=== PATIENT | female | born 1970 | race Caucasian/White ===

== ENCOUNTER 2018-10-20 14:33 | Emergency (ER) | payer BC, SELFPAY ==
[2018-10-20 14:38] VITALS: BP 124/78; PULSE 79; RESP 17; TEMP 36.9; O2SAT 96; BMI 25.0
--- NOTE | 2018-10-20 16:46 | DI.CT.S_ITS ---
PROCEDURE: CT HEAD/BRAIN WO CON INDICATIONS: Ground level fall hitting back of head possible loc TECHNIQUE: Noncontrast 4.5 mm thick angled axial sections acquired from the foramen magnum to the vertex, with coronal and sagittal reformats. For radiation dose reduction, the following was used: automated exposure control, adjustment of mA and/or kV according to patient size. COMPARISON: [facility], , CT HEAD W/O CONTRAST, 04/16/2003, 8:14. FINDINGS: Image quality: Excellent. CSF spaces: Basal cisterns are patent. No extra-axial fluid collections. Ventricles are normal in size and shape. Brain: No midline shift. No intracranial masses or hemorrhage. De La Cruz-white matter interface is normal. Skull and face: Calvarium and visualized facial bones are intact, without suspicious lesions. Sinuses: Visualized sinuses and mastoids are clear. IMPRESSION: No CT evidence of acute trauma. Dictated by: Zahra Cabrales M.D. on 10/20/2018 at 17:03 Approved by: Zahra Cabrales M.D. on 10/20/2018 at 17:05
[2018-10-20] MEDS: IBUPROFEN 400 MG TABLET 800 MG PO (17:15)
[2018-10-20] MEDS: ONDANSETRON 4 MG ODT SL (17:18)
--- NOTE | 2018-10-20 17:43 | ED_ITS ---
HPI - Fall <SUE De La Torre - Last Filed: 10/20/18 21:59> General Chief Complaint: Fall Stated Complaint: fall out of shower, hit her head Time Seen by Provider: 10/20/18 16:34 Source: patient Mode of arrival: ambulatory Limitations: no limitations History of Present Illness HPI Narrative: 48-year-old female with history of type 2 diabetes and is a nonsmoker here for complaint of fall while she was stepping out of the shower earlier today causing hit her back of her head. She states there may have been a loss of consciousness however she is not sure. She has some nausea however she has not vomiting. Pain is limited to the back of the head. She denies any neck pain. No other injuries. She is ambulatory into the emergency room. She denies any stressors relievers of her symptoms. MD complaint: fall Related Data Home Medications Medication Instructions Recorded Confirmed estradiol 10/20/18 gabapentin 10/20/18 levothyroxine 50 mcg PO DAILY 10/20/18 10/20/18 lovastatin 20 mg PO DAILY 10/20/18 10/20/18 metformin 750 mg PO BID 10/20/18 10/20/18 propranolol 40 mg PO BID 10/20/18 10/20/18 venlafaxine 50 mg PO DAILY 10/20/18 10/20/18 Allergies Allergy/AdvReac Type Severity Reaction Status Date / Time Sulfa (Sulfonamide Allergy Intermediate HIVES Unverified 11/03/17 11:54 Antibiotics) [SULFA (SULFONAMIDE ANTIBIOTICS)] aspirin [ASPIRIN] Allergy Unknown Unverified 11/03/17 11:54 codeine [CODEINE] Allergy Unknown Unverified 11/03/17 11:54 hydromorphone [From DILAUDID] Allergy Unknown VOMITING Unverified 11/03/17 11:54 AND DIARRHEA Review of Systems <SUE De La Torre - Last Filed: 10/20/18 21:59> Constitutional Denies chills, Denies fever(s), Denies lethargy and Denies weakness Eyes Denies change in vision, Denies eye discharge, Denies irritation and Denies loss of vision ENT Ears, Nose, Mouth, and Throat: Denies change in voice, Denies neck pain, Denies sore throat and Denies throat swelling Cardiovascular Denies chest pain, Denies irregular heart rhythm, Denies lightheadedness, Denies palpitations and Denies orthopnea Respiratory Denies wheezing Gastrointestinal Gastrointestinal: Denies abdominal pain, Denies change in bowel habits, Denies diarrhea, Denies nausea and Denies vomiting Musculoskeletal Denies neck pain Integumentary/Breasts Denies pruritus, Denies erythema, Denies rash and Denies wounds Neurologic Denies confusion, Denies loss of vision and Denies weakness Comments: Ground level fall hitting back of head Psychiatric Denies anxiety, Denies confusion, Denies depression, Denies homicidal ideation and Denies suicidal ideation Endocrine Denies palpitations Allergic/Immunologic Denies urticaria, Denies throat swelling and Denies wheezing Exam <SUE De La Torre - Last Filed: 10/20/18 21:59> Initial Vital Signs Initial Vital Signs: Vital Signs Temperature 98.5 F 10/20/18 14:38 Pulse Rate 79 10/20/18 14:38 Respiratory Rate 17 10/20/18 14:38 Blood Pressure 124/78 10/20/18 14:38 Pulse Oximetry 96 10/20/18 14:38 Const General: cooperative and well developed Nutritional Appearance: well nourished Orientation: alert, awake, oriented x3 and not confused [facility] Head: normal to inspection, normocephalic, No Bahena's sign, No hematoma, No laceration, No palpable skull fracture, No raccoon eyes, No scalp lesion and scalp tenderness Mouth: oral mucosae normal and moist mucous membranes Throat: posterior oropharynx normal Eyes Conjunctivae: conjunctivae normal Sclera: sclerae normal Pupils: PERRL EOM: EOM intact bilaterally Resp Effort & Inspection: normal respiratory effort, able to speak in complete sentences, no respiratory distress and no use of accessory muscles Auscultation: clear to auscultation bilaterally, no rales, no rhonchi and no w heezes Cardio Rate: regular rate Rhythm: regular rhythm Heart Sounds: no click, no gallops, no murmurs and no rubs Pulses: normal peripheral pulses Skin General: no rashes or lesions noted, No jaundice and No petechiae Neuro General: alert, oriented x3, gait normal and no focal motor deficits Speech: speech normal <Noemi Miller DO - Last Filed: 10/22/18 07:14> Initial Vital Signs Initial Vital Signs: Vital Signs Temperature 98.5 F 10/20/18 14:38 Pulse Rate 79 10/20/18 14:38 Respiratory Rate 17 10/20/18 14:38 Blood Pressure 124/78 10/20/18 14:38 Pulse Oximetry 96 10/20/18 14:38 PFSH <SUE De La Torre - Last Filed: 10/20/18 21:59> Social History Smoking Status: Former smoker Social History Smoking Status: Former smoker Course <SUE De La Torre - Last Filed: 10/20/18 21:59> Orders Ordered: Discontinued Medications Ibuprofen (Advil) 800 mg PO NOW ONE Stop: 10/20/18 17:15 Last Admin: 10/20/18 17:15 Dose: 800 mg Ondansetron HCl (Zofran Odt) 4 mg SL NOW ONE Stop: 10/20/18 17:18 Last Admin: 10/20/18 17:18 Dose: 4 mg Vital Signs - 8 hr 10/20/18 14:38 Temperature 98.5 F Pulse Rate 79 Respiratory Rate 17 Blood Pressure 124/78 Pulse Oximetry 96 <Noemi Miller DO - Last Filed: 10/22/18 07:14> Orders Ordered: Discontinued Medications Ibuprofen (Advil) 800 mg PO NOW ONE Stop: 10/20/18 17:15 Last Admin: 10/20/18 17:15 Dose: 800 mg Ondansetron HCl (Zofran Odt) 4 mg SL NOW ONE Stop: 10/20/18 17:18 Last Admin: 10/20/18 17:18 Dose: 4 mg Vital Signs - 8 hr 10/20/18 14:38 Temperature 98.5 F Pulse Rate 79 Respiratory Rate 17 Blood Pressure 124/78 Pulse Oximetry 96 MDM - Fall <SUE De La Torre - Last Filed: 10/20/18 21:59> MDM Narrative Medical decision making narrative: On exam head with no signs of skull fracture. No Bahena signs. No raccoon eyes. CT scan of the head was obtained was negative for any acute findings. Signs and symptoms presents as a minor head injuriy. [id number] Tylenol as needed for any discomfort. Plenty of fluids and rest. Head injury instructions are provided warning signs return to the emergency room. For any worsening symptoms return to the emergency room. Follow up with primary care provider. Discharge Plan Departure Patient Disposition: Home Clinical Impression: Minor closed head injury Discharge Date/Time: 10/20/18 17:54 Interventions: ED Discharge Assessment Last Done: 10/20/18 17:53 Instructions: DI for Closed Head Injury Activity Restrictions/Additional Instructions: CT scan of the head was obtained and was negative for any acute findings. Signs and symptoms presents as minor head injury. Use [id number] Tylenol as needed for any discomfort. Follow up with her primary care provider next week for re-evaluation. Plenty of fluids and rest. Head injury instructions are provided with warning signs return emergency room. If any worsening symptoms return to the emergency room. Prescriptions: No Action estradiol 0.01 % (0.1 mg/gram) cream RF: 0 gabapentin 600 mg tablet RF: 0 propranolol 40 mg tablet 40 mg PO BID RF: 0 levothyroxine 50 mcg tablet 50 mcg PO DAILY RF: 0 venlafaxine 50 mg tablet 50 mg PO DAILY RF: 0 lovastatin 20 mg tablet 20 mg PO DAILY RF: 0 metformin 750 mg tablet extended release 24 hr 750 mg PO BID RF: 0 Referrals: [facility] [Provider Group] Stand Alone Forms: Work Release Note <Noemi Miller DO - Last Filed: 10/22/18 07:14> Cosign ED Attending Hardik Attestation: I was immediately available in the department for consultation. Documentation has been reviewed. I agree with assessment and plan.
== END 2018-10-20 17:54 | disposition home or self-care (01) ==
PROVIDERS: Emergency Provider Nurse Practitioner Family
DX: S09.8XXA Other specified injuries of head, initial encounter (principal); W18.39XA Other fall on same level, initial encounter
CPT/HCPCS: 70450; 99282; 99284

== ENCOUNTER 2019-04-27 02:29 | Emergency (ER) | payer BC, SELFPAY ==
[2019-04-27 02:36] VITALS: BP 169/90; PULSE 64; RESP 18; TEMP 36.6; O2SAT 98
--- NOTE | 2019-04-27 02:57 | ED.DIZZY ---
HPI - Dizziness General Chief Complaint: Dizziness Stated Complaint: chest tightness, dizziness Time Seen by Provider: 04/27/19 02:34 Source: patient Mode of arrival: Ambulatory Limitations: no limitations History of Present Illness HPI Narrative: The patient developed chest discomfort with dizziness or tonight. She was feeling anxious, she was feeling like a panic attack. Symptoms resolved on the way to the hospital, she feels much better. She takes Effexor for anxiety/depression. She has been out of medications for 3 days. Medications will be available tomorrow. Her current symptoms started today. She has no history of cardiac problems. She has a history of previous discomfort associated with panic attacks. She denies recent illness. She has no URI symptoms, cough or congestion. She does have diabetes. He does not have hypertension or hyperlipidemia. Related Data Home Medications Medication Instructions Recorded Confirmed estradiol 10/20/18 gabapentin 10/20/18 levothyroxine 50 mcg PO DAILY 10/20/18 10/20/18 lovastatin 20 mg PO DAILY 10/20/18 10/20/18 metformin 750 mg PO BID 10/20/18 10/20/18 propranolol 40 mg PO BID 10/20/18 10/20/18 venlafaxine 50 mg PO DAILY 10/20/18 10/20/18 Allergies Allergy/AdvReac Type Severity Reaction Status Date / Time Sulfa (Sulfonamide Allergy Intermediate HIVES Unverified 11/03/17 11:54 Antibiotics) [SULFA (SULFONAMIDE ANTIBIOTICS)] aspirin [ASPIRIN] Allergy Unknown Unverified 11/03/17 11:54 codeine [CODEINE] Allergy Unknown Unverified 11/03/17 11:54 hydromorphone [From DILAUDID] Allergy Unknown VOMITING Unverified 11/03/17 11:54 AND DIARRHEA Review of Systems Review of Systems ROS Unobtainable: All systems reviewed & are unremarkable except as noted in HPI and below Constitutional Constitutional: Denies chills, Denies fever(s), Denies headache(s), Denies lethargy and Denies weakness Comments: Anxiety. Eyes Eyes: Denies change in vision, Denies eye discharge, Denies irritation and Denies loss of vision ENT Ears, Nose, Mouth, and Throat: Denies vertigo, Denies dizziness, Denies headache(s), Denies neck pain, Denies sinus pressure and Denies sore throat Cardiovascular Cardiovascular: Reports chest pain, Denies irregular heart rhythm, Denies lightheadedness, Denies palpitations, Reports dyspnea, Denies dyspnea on exertion and Denies orthopnea Respiratory Respiratory: Denies cough, Reports dyspnea, Denies dyspnea on exertion and Denies wheezing Gastrointestinal Gastrointestinal: Denies abdominal pain, Denies change in bowel habits, Denies diarrhea, Denies nausea and Denies vomiting Musculoskeletal Musculoskeletal: Denies back pain and Denies neck pain Integumentary/Breasts Skin/Breast: Denies pruritus, Denies erythema, Denies rash and Denies wounds Neurologic Neurologic: Denies confusion, Denies vertigo, Denies dizziness, Denies headache(s), Denies loss of vision and Denies weakness Psychiatric Psychiatric: Reports anxiety, Denies confusion and Denies depression Endocrine Endocrine: Denies palpitations Allergic/Immunologic Allergic/Immunologic: Denies wheezing [facility] Medical History Anxiety (Acute) Depression (Acute) Diabetes (Acute) Hypothyroidism (Acute) Neurogenic pain (Acute) Social History Smoking Status: Former smoker Social History Smoking Status: Former smoker Exam Initial Vital Signs Initial Vital Signs: Vital Signs Temperature 98 F 04/27/19 02:36 Pulse Rate 64 04/27/19 02:36 Respiratory Rate 18 04/27/19 02:36 Blood Pressure 169/90 H 04/27/19 02:36 Pulse Oximetry 98 04/27/19 02:36 Const General: cooperative and well developed Nutritional Appearance: well nourished Orientation: alert, awake, oriented x3 and not confused [facility] Head: normocephalic and atraumatic Face and sinus: sinuses nontender Mouth: oral mucosae normal and moist mucous membranes Throat: tonsils normal and uvula midline Eyes General: appearance normal, both eyes and all related structures Eyelids: eyelids normal Conjunctivae: conjunctivae normal Sclera: sclerae normal Pupils: PERRL EOM: EOM intact bilaterally Neck Neck: normal visual inspection, trachea midline, No lymphadenopathy, No midline deformity and No JVD Lymphatic: No lymphedema Chest Chest: normal inspection of the chest Resp Effort & Inspection: normal respiratory effort and able to speak in complete sentences Auscultation: clear to auscultation bilaterally, no rales, no rhonchi and no wheezes Cardio Rate: regular rate Rhythm: regular rhythm Heart Sounds: S1 normal, S2 normal, no click, no gallops, no murmurs and no rubs Pulses: normal peripheral pulses GI Inspection: non-distended Palpation: soft, no hepatosplenomegaly, No guarding and No tender Auscultation: normal bowel sounds Back/Spine/Pelvis Back: No CVA tenderness Skin General: no rashes or lesions noted, No jaundice and No petechiae Neuro General: alert, oriented x3, gait normal and no focal motor deficits Speech: speech normal Extrem General: full ROM, no clubbing, cyanosis or edema and no pedal edema Psych Appearance: well kempt Mental Status: mental status grossly normal Speech and Movement: speech and movement normal Mood: anxious mood Attitude: cooperative Thought Content: normal Judgment: judgment good Course Course Course Narrative: The patient is earlier symptoms of chest discomfort, mild dyspnea and anxiety had improved without intervention. She still feels anxious, but not bad. Her Effexor will be available later today. She was given a dose of Effexor prior to departure from the ER. Orders Ordered: Discontinued Medications Venlafaxine HCl (Effexor) 37.5 mg PO NOW ONE Stop: 04/27/19 02:54 Last Admin: 04/27/19 03:10 Dose: Not Given Documented by: MERY Venlafaxine HCl (Effexor Xr) 75 mg PO DAILY ONE Stop: 04/27/19 03:16 Last Admin: 04/27/19 03:16 Dose: 75 mg Documented by: MERY Vital Signs Vital signs: Vital Signs - 8 hr 04/27/19 02:36 04/27/19 03:25 Temperature 98 F 99 F Pulse Rate 64 72 Respiratory Rate 18 19 Blood Pressure 169/90 H 158/84 H Pulse Oximetry 98 MDM - Dizziness Lab Data Labs: Point of Care Testing Glucose POC 111 ECG Data Attestation: I personally reviewed and interpreted this ECG as follows: (Normal sinus rhythm rate 60 beats per minute. Normal intervals. No ectopy. No acute ST T wave changes. Normal study.) Discharge Plan Departure Patient Disposition: Home Clinical Impression: Anxiety Discharge Date/Time: 04/27/19 03:50 Instructions: DI for Anxiety -- Adult Activity Restrictions/Additional Instructions: Take venlafaxine daily as prescribed. Follow-up with her doctor if you of ongoing issues with her medication, return here as needed Prescriptions: No Action estradiol 0.01 % (0.1 mg/gram) cream RF: 0 gabapentin 600 mg tablet RF: 0 propranolol 40 mg tablet 40 mg PO BID RF: 0 levothyroxine 50 mcg tablet 50 mcg PO DAILY RF: 0 venlafaxine 50 mg tablet 50 mg PO DAILY RF: 0 lovastatin 20 mg tablet 20 mg PO DAILY RF: 0 metformin 750 mg tablet extended release 24 hr 750 mg PO BID RF: 0
[2019-04-27] MEDS: VENLAFAXINE ER 75 MG CAP PO (03:16)
[2019-04-27 03:25] VITALS: BP 158/84; PULSE 72; RESP 19; TEMP 37.2
== END 2019-04-27 03:50 | disposition home or self-care (01) ==
PROVIDERS: Emergency Provider Emergency Medicine
DX: F41.9 Anxiety disorder, unspecified (principal)
CPT/HCPCS: 82962; 93005; 99282; 99283

== ENCOUNTER 2019-10-10 21:47 | Emergency (ER) | payer BC, SELFPAY ==
--- NOTE | 2019-10-10 21:51 | ED_ITS ---
HPI - SOB/Dyspnea General Chief Complaint: Upper Respiratory Symptoms Stated Complaint: cough, fever Time Seen by Provider: 10/10/19 22:02 Source: patient Mode of arrival: Ambulatory Limitations: no limitations History of Present Illness HPI Narrative: This is a 49-year-old female comes to the emergency department with complaint of dry cough has been going on for 2+ weeks. Patient states she know she had any fevers. She is going through menopause and sometimes has hot flashes and has had those intermittently. She has had some mild nasal congestion. She states cough has been nonproductive. She has felt a little short of breath recently. She has not had any chest pain or pressure. She denies any nausea or vomiting, no diarrhea constipation, no urinary symptoms. She has not any swelling in her lower extremities. She is on metformin, she does have elevated triglycerides but states she does not tolerate statins so she is on red yeast rice, and she takes thyroid medication in depression medications. She states she has had thyroid surgery and a cyst on her hand excised. She has multiple allergies. Patient states her main concern is that she works [employer] and she is transferring to a new area with 2 additional individuals who have older family members with medical issues and she is concerned about transmitting infection to them. Related Data Home Medications Medication Instructions Recorded Confirmed estradiol 10/20/18 gabapentin 10/20/18 levothyroxine 50 mcg PO DAILY 10/20/18 10/20/18 lovastatin 20 mg PO DAILY 10/20/18 10/20/18 metformin 750 mg PO BID 10/20/18 10/20/18 propranolol 40 mg PO BID 10/20/18 10/20/18 venlafaxine 50 mg PO DAILY 10/20/18 10/20/18 Previous Rx's Medication Instructions Recorded azithromycin See Rx Instructions .ROUTE 10/10/19 .COMPLEX #4 tab Allergies Allergy/AdvReac Type Severity Reaction Status Date / Time Sulfa (Sulfonamide Allergy Intermediate HIVES Unverified 11/03/17 11:54 Antibiotics) [SULFA (SULFONAMIDE ANTIBIOTICS)] aspirin [ASPIRIN] Allergy Unknown Unverified 11/03/17 11:54 codeine [CODEINE] Allergy Unknown Unverified 11/03/17 11:54 hydromorphone [From DILAUDID] Allergy Unknown VOMITING Unverified 11/03/17 11:54 AND DIARRHEA Review of Systems Review of Systems ROS Unobtainable: All systems reviewed & are unremarkable except as noted in HPI and below Patient History Medical History Anxiety (Acute) Depression (Acute) Diabetes (Acute) Hypothyroidism (Acute) Neurogenic pain (Acute) Social History Smoking Status: Former smoker Smoking Status: Former smoker alcohol intake frequency: holidays/special occasions only Substance Use Type: does not use Exam Narrative Exam Narrative: GEN: well nourished, well appearing female, alert and oriented x 3, patient appears to be in mild distress. HEENT: Atraumatic, pupils are equal round reactive to light, extraocular movements are intact, nares are clear, patient has some mild erythema around the nares consistent with wiping her nose frequently, TMs are clear with no fluid, there is no conjunctival pallor. Throat is clear without any exudates, erythema, tonsillar enlargement or uvular deviation HEART: Regular rate and rhythm without murmur, clicks, rubs. LUNGS:Lungs clear to auscultation, no wheezes, rales, crackles, chest moves symmetrically, no tachypnea accessory muscle use. Patient has dry cough all in the room. She is able to speak in full sentences. ABD:bowel sounds normal, soft, non-tender, no guarding, rebound, rigidity, no masses noted, no hepatosplenomegaly MSCL: full range of motion, normal gait NEURO:CN 2-12 intact SKIN: Rash, erythema or other skin changes. Initial Vital Signs Initial Vital Signs: Vital Signs Temperature 98.3 F 10/10/19 22:05 Pulse Rate 90 10/10/19 22:05 Respiratory Rate 18 10/10/19 22:05 Blood Pressure 150/70 H 10/10/19 22:05 Pulse Oximetry 99 10/10/19 22:05 Course Orders Ordered: ED Orders 10/10/19 22:03 XR chest 2V Stat Discontinued Medications Azithromycin (Zithromax) 500 mg PO NOW ONE Stop: 10/10/19 22:55 Last Admin: 10/10/19 23:01 Dose: 500 mg Documented by: MMCFARVivienne Vital Signs Vital signs: Vital Signs - 8 hr 10/10/19 22:05 10/10/19 23:15 Temperature 98.3 F 97.1 F L Pulse Rate 90 84 Respiratory Rate 18 16 Blood Pressure 150/70 H Blood Pressure [Left Arm] 134/67 Pulse Oximetry 99 97 MDM - SOB/Dyspnea Imaging Data Chest x-ray: Attestation: I personally reviewed and interpreted this imaging study as follows: My Impression: Possible infiltrate on lateral x-ray when compared to priors. Not appreciate a PA. MDM Narrative Medical decision making narrative: Patient comes in with dry cough and possible fevers for the past 2+ weeks. Her main concern is being able to work safely around her coworkers. Chest x-ray was obtained and shows possible infiltrate on the lateral view. Not appreciated on the PA. Discussed with patient plan for short course of antibiotics we did discuss that this could also be viral in nature. Patient and I discussed that she should continue with self isolation. Discharge Plan Departure Patient Disposition: Home Clinical Impression: Pneumonia Discharge Date/Time: 10/10/19 23:18 Instructions: DI for Pneumonia -- Adult Activity Restrictions/Additional Instructions: Follow-up in the next week for recheck if your symptoms are not improving. We cannot rule out any viral cause of your infection today. I do recommend self isolation for the next 7-10 days. Continue home medications as prescribed. Take antibiotics as prescribed. Prescription was sent to [facility]. Return to the ER for persistent fevers, increasing shortness of breath, chest pain, lightheadedness or passing out, swelling in your extremities, persistent vomiting or other new or concerning symptoms. Prescriptions: New azithromycin 250 mg tablet See Rx Instructions .ROUTE .COMPLEX Qty: 4 RF: 0 No Action estradiol 0.01 % (0.1 mg/gram) cream RF: 0 gabapentin 600 mg tablet RF: 0 propranolol 40 mg tablet 40 mg PO BID RF: 0 levothyroxine 50 mcg tablet 50 mcg PO DAILY RF: 0 venlafaxine 50 mg tablet 50 mg PO DAILY RF: 0 lovastatin 20 mg tablet 20 mg PO DAILY RF: 0 metformin 750 mg tablet extended release 24 hr 750 mg PO BID RF: 0 Stand Alone Forms: Work Release Note, Work/School Release
--- NOTE | 2019-10-10 22:03 | DI.RAD.S_ITS ---
PROCEDURE: XR CHEST 2V INDICATIONS: cough, fever TECHNIQUE: 2 views of the chest were acquired. COMPARISON: [facility], , CHEST 2 VIEW, 02/02/2015, 11:59. FINDINGS: Surgical changes and devices: None. Lungs and pleura: Increased bronchovascular markings in bilateral hilar region are seen. No definite focal infiltrate. No pleural effusions or pneumothorax. Mediastinum: Mediastinal contours are normal. Heart size is normal. Bones and chest wall: No suspicious bony abnormalities. Soft tissues appear unremarkable. IMPRESSION: Suggestion of mild reactive airway disease. No definite focal infiltrate. Dictated by: Adebayo Irizarry M.D. on 10/11/2019 at 8:28 Approved by: Adebayo Irizarry M.D. on 10/11/2019 at 8:30
[2019-10-10 22:05] VITALS: BP 150/70; PULSE 90; RESP 18; TEMP 36.8; O2SAT 99
--- NOTE | 2019-10-10 22:22 | PC.NURSE ---
PT states dry cough for past 2 weeks without fever and denies sore throat, was seen at [facility] and given medication she can't recall name of but stopped taking stating it gave her hives. PT works at 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 Pt appears in no distress, speaking in full sentences without work of breathing and Lung sounds clear bilaterally.
[2019-10-10] MEDS: AZITHROMYCIN 250 MG TABLET 500 MG PO (23:01)
[2019-10-10 23:15] VITALS: BP 134/67; PULSE 84; RESP 16; TEMP 36.2; O2SAT 97
--- NOTE | 2019-10-10 23:15 | PC.NURSE ---
gave patient 3 sheets of resource papers, [facility] resources business card, and told to stop at the front office administrator for finance resources.
== END 2019-10-10 23:18 | disposition home or self-care (01) ==
PROVIDERS: Emergency Provider Emergency Medicine
DX: J18.9 Pneumonia, unspecified organism (principal); E11.9 Type 2 diabetes mellitus without complications
CPT/HCPCS: 71046; 99283

== ENCOUNTER 2020-02-05 23:05 | Emergency (ER) | payer BC, SELFPAY ==
[2020-02-05 23:12] VITALS: BP 180/101; PULSE 93; RESP 17; TEMP 36.7; O2SAT 99; BMI 25.9
[2020-02-05 23:36] VITALS: BP 161/83; PULSE 87; RESP 18; O2SAT 98
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
== END 2020-02-05 23:40 | disposition home or self-care (01) ==
PROVIDERS: Emergency Provider Emergency Medicine
DX: S06.0X0A Concussion without loss of consciousness, initial encounter (principal); E78.5 Hyperlipidemia, unspecified; R11.0 Nausea; W22.8XXA Striking against or struck by other objects, initial encounter
CPT/HCPCS: 99281

== ENCOUNTER → 2020-06-12 18:51 | Outpatient (ROUT) | payer BC, SELFPAY ==
[2020-06-12 18:59] LABS: Add Manual Diff / Slide Review NO; Basophils Absolute Auto 100 /uL (0-100); Basophils Percent Auto 0.6 % (0-2); Eosinophils Absolute Auto 700 /uL (0-450); Eosinophils Percent Auto 8.1 % (2-4); Hematocrit 35.4 % (36-46); Hemoglobin 12.1 g/dL (12.0-16.0); Lymphocytes Absolute Auto 2100 /uL (1100-4500); Lymphocytes Percent Auto 23.8 % (25-40); Mean Corpuscular HGB Conc 34.3 % (30-36); Mean Corpuscular Hemoglobin 30.2 PG (26-34); Monocytes Absolute Auto 600 /uL (0-900); Monocytes Percent Auto 6.6 % (3-14); Neutrophils Absolute Auto 5400 /uL (1500-7000); Neutrophils Percent Auto 60.9 % (50-75); Platelet Count 349 X10^3/uL (150-400); Red Blood Cell Count 4.02 X10^6/uL (4.0-5.2); Red Cell Distribution Width 13.1 % (11.6-14.8); White Blood Cell Count 8.9 X10^3/uL (4.5-11.0)
[2020-06-12 19:08] LABS: Hemoglobin A1C% w Est Avg Glu 6.4 % (4.0-6.0)
[2020-06-12 19:12] LABS: Alanine Aminotransferase 24 IU/L (<35); Albumin Globulin Ratio 1.4 (1.0-2.8); Alkaline Phosphatase 85 U/L (38-126); Aspartate Aminotransferase 30 IU/L (14-36); BUN Creatinine Ratio 23.6 (6-22); Bilirubin Total 0.3 mg/dL (0.2-1.3); Blood Urea Nitrogen 13 mg/dL (7-17); C-Reactive Protein Quant 0.7 mg/dL (<1.0); Calcium 9.6 mg/dL (8.4-10.2); Carbon Dioxide 28 mmol/L (22-32); Chloride 102 mmol/L (98-107); Estimated Glomerular Filt Rate > 60.0 mL/min (>60); Globulin 2.9 g/dL (1.7-4.1); Glucose 120 mg/dL (70-100); HEMOLYSIS < 15 (0-50); Potassium 4.6 mmol/L (3.4-5.1); Sodium 137 mmol/L (137-145); Total Protein 6.9 g/dL (6.3-8.2)
[2020-06-12 19:31] LABS: Erythrocyte Sedimentation Rate 22 MM/HR (0-20)
[2020-06-12 19:38] LABS: TSH w/ Reflex to FT4 1.02 uIU/mL (0.47-4.68)
== END ==
PROVIDERS: Visit Provider Physician Assistant
DX: H57.12 Ocular pain, left eye (principal); R51.9 Headache, unspecified; E11.9 Type 2 diabetes mellitus without complications; E03.9 Hypothyroidism, unspecified
CPT/HCPCS: 80053; 83036; 84443; 85025; 85651; 86140

== ENCOUNTER → 2020-06-13 09:56 | Outpatient (CLI) | payer BC, SELFPAY ==
--- NOTE | 2020-06-13 09:58 | DI.CT.S_ITS ---
PROCEDURE: CT HEAD/BRAIN WO CON INDICATIONS: Headache, unspecified TECHNIQUE: Noncontrast 4.5 mm thick angled axial sections acquired from the foramen magnum to the vertex, with coronal and sagittal reformats. For radiation dose reduction, the following was used: automated exposure control, adjustment of mA and/or kV according to patient size. COMPARISON: [facility], RG, CT HEAD W/O CONTRAST, 04/16/2003, 8:14. [facility], CT, CT HEAD WITHOUT CONTRAST, 06/23/2019, 13:46. [facility], CT, CT HEAD/BRAIN WO CON, 10/20/2018, 16:50. FINDINGS: Image quality: Excellent. CSF spaces: Basal cisterns are patent. No extra-axial fluid collections. Ventricles are normal in size and shape. Brain: No midline shift. No intracranial masses or hemorrhage. De La Cruz-white matter interface is normal. Skull and face: Calvarium and visualized facial bones are intact, without suspicious lesions. Sinuses: Visualized sinuses and mastoids are clear. IMPRESSION: Unremarkable intracranial study, without an imaging explanation found for the patient's presenting history of headache. Stable from priors. Dictated by: Robert Wei M.D. on 06/13/2020 at 9:22 Approved by: Robert Wei M.D. on 06/13/2020 at 9:24
== END ==
PROVIDERS: PCP Physician Assistant; Referring Provider Physician Assistant; Visit Provider Physician Assistant
DX: H57.12 Ocular pain, left eye (principal); R51.9 Headache, unspecified
CPT/HCPCS: 70450

== ENCOUNTER 2020-06-14 17:13 | Emergency (ER) | payer BC, SELFPAY ==
[2020-06-14 17:30] VITALS: BP 122/75; PULSE 108; RESP 18; TEMP 36.2; O2SAT 99; BMI 39.4
--- NOTE | 2020-06-14 17:46 | DI.MRI.S_ITS ---
PROCEDURE: MR HEAD/BRAIN WO/W CON COMPARISON: [facility], CT, CT HEAD/BRAIN WO CON, 06/13/2020, 10:05. INDICATIONS: orbit-retrobulbar FINDINGS: CEREBRUM: No hemorrhage, acute infarction, or mass. No midline shift. No significant white matter disease. The optic chiasm and optic tracts are normal. Flow voids are grossly intact. CEREBELLUM: No hemorrhage, acute infarction, or mass. The fourth ventricle, IACs and cerebellopontine angles are normal. EXTRAAXIAL: No abnormal extra-axial fluid or blood. The subarachnoid cisterns and extra-axial CSF spaces are normal. BRAINSTEM: No hemorrhage, acute infarction, or mass. DWI: No active restricted diffusion on diffusion weighted images to suggest acute ischemia. SELLA/MIDLINE: Normal sella. The midline structures are normal. The foramen magnum is normal with no Chiari malformation. VENTRICLES: Ventricular size is normal. No hydrocephalus. SKULL: No fracture or focal osseous abnormality. SINUSES/MASTOIDS: The paranasal sinuses are well aerated. The mastoid air cells are well aerated. ORBITS: The orbits, globes, and retrobulbar structures are normal. Optic nerves are symmetric. Extraocular muscles are normal. SOFT TISSUES: Normal. POST-GADOLINUM: No abnormal post gadolinium enhancement. IMPRESSION: 1. No acute intracranial abnormality. 2. No abnormal enhancement. 3. Normal orbits. Dictated by: Nelson Lang M.D. on 06/14/2020 at 20:42 Approved by: Nelson Lang M.D. on 06/14/2020 at 20:50
[2020-06-14 18:21] LABS: Add Manual Diff / Slide Review NO; Basophils Absolute Auto 100 /uL (0-100); Basophils Percent Auto 0.7 % (0-2); Eosinophils Absolute Auto 500 /uL (0-450); Eosinophils Percent Auto 4.9 % (2-4); Hematocrit 35.6 % (36-46); Hemoglobin 12.2 g/dL (12.0-16.0); Lymphocytes Absolute Auto 2300 /uL (1100-4500); Lymphocytes Percent Auto 21.1 % (25-40); Mean Corpuscular HGB Conc 34.4 % (30-36); Mean Corpuscular Volume 87.4 fL (80-100); Monocytes Absolute Auto 600 /uL (0-900); Monocytes Percent Auto 5.5 % (3-14); Neutrophils Absolute Auto 7400 /uL (1500-7000); Neutrophils Percent Auto 67.8 % (50-75); Platelet Count 359 X10^3/uL (150-400); Red Blood Cell Count 4.07 X10^6/uL (4.0-5.2); Red Cell Distribution Width 13.4 % (11.6-14.8); White Blood Cell Count 10.9 X10^3/uL (4.5-11.0)
[2020-06-14 18:32] LABS: Alanine Aminotransferase 25 IU/L (<35); Albumin 4.3 g/dL (3.5-5.0); Albumin Globulin Ratio 1.3 (1.0-2.8); Alkaline Phosphatase 80 U/L (38-126); Aspartate Aminotransferase 30 IU/L (14-36); BUN Creatinine Ratio 32.3 (6-22); Bilirubin Total 0.3 mg/dL (0.2-1.3); Blood Urea Nitrogen 20 mg/dL (7-17); Calcium 9.8 mg/dL (8.4-10.2); Carbon Dioxide 25 mmol/L (22-32); Chloride 101 mmol/L (98-107); Estimated Glomerular Filt Rate > 60.0 mL/min (>60); Globulin 3.3 g/dL (1.7-4.1); Glucose 123 mg/dL (70-100); HEMOLYSIS 39 (0-50); Potassium 4.6 mmol/L (3.4-5.1); Sodium 137 mmol/L (137-145); Total Protein 7.6 g/dL (6.3-8.2)
[2020-06-14] MEDS: diazePAM 10 MG/2 ML SYRINGE 2 MG IV (19:16)
--- NOTE | 2020-06-14 20:45 | ED_ITS ---
HPI - Eye Problem General Chief complaint: Eye Problems Stated complaint: Sent for MRI, occular pain Time Seen by Provider: 06/14/20 18:10 Source: patient Mode of arrival: Ambulatory Limitations: no limitations History of Present Illness HPI Narrative: 49-year-old female nonsmoker with history of hyperlipidemia pres ents at the request of Dr. Pelayo (ophtho) for evaluation of left eye pain, visual change and concern for possible optic neuritis. The patient has had various symptoms for upwards of 1 week. Initially she was complaining of eye twitching but largely her symptoms include left eye pain, worse with range of motion or bright light as well as some blurred vision. She denies any other neurologic findings such as trouble speech, numbness, tingling or weakness. She denies any injury. She had seen her primary care provider whom referred her to Ophthalmology due to a concern for temporal arteritis. Dr. pelayo did a thorough examination in her office and sent her to the emergency department to receive an MRI and has already been in consultation with Neuro Ophthalmology at [facility] Related Data Home Medications Medication Instructions Recorded Confirmed estradiol 10/20/18 gabapentin 10/20/18 levothyroxine 50 mcg PO DAILY 10/20/18 10/20/18 lovastatin 20 mg PO DAILY 10/20/18 10/20/18 metformin 750 mg PO BID 10/20/18 10/20/18 propranolol 40 mg PO BID 10/20/18 10/20/18 venlafaxine 50 mg PO DAILY 10/20/18 10/20/18 Previous Rx's Medication Instructions Recorded azithromycin See Rx Instructions .ROUTE 10/10/19 .COMPLEX #4 tab ondansetron 4 mg PO TID-QID PRN #10 tab 02/05/20 Allergies Allergy/AdvReac Type Severity Reaction Status Date / Time Sulfa (Sulfonamide Allergy Intermediate HIVES Verified 06/14/20 17:30 Antibiotics) [SULFA (SULFONAMIDE ANTIBIOTICS)] aspirin [ASPIRIN] Allergy Unknown Verified 06/14/20 17:30 codeine [CODEINE] Allergy Unknown Verified 06/14/20 17:30 hydromorphone [From DILAUDID] Allergy Unknown VOMITING Verified 06/14/20 17:30 AND DIARRHEA Review of Systems Constitutional Constitutional: Denies chills, Denies fatigue, Denies fever(s), Denies frequent falls, Denies lethargy and Denies weakness Eyes Eyes: Reports change in vision, Denies eye discharge, Denies irritation, Denies loss of vision and Reports eye pain ENT Ears, Nose, Mouth, and Throat: Denies change in voice, Denies dizziness, Denies neck pain, Denies sore throat and Denies throat swelling Cardiovascular Cardiovascular: Denies chest pain, Denies irregular heart rhythm, Denies lightheadedness, Denies palpitations, Denies dyspnea, Denies dyspnea on exertion and Denies orthopnea Respiratory Respiratory: Denies cough, Denies dyspnea, Denies dyspnea on exertion and Denies wheezing Gastrointestinal Gastrointestinal: Denies abdominal pain, Denies change in bowel habits, Denies diarrhea, Denies nausea and Denies vomiting Musculoskeletal Musculoskeletal: Denies neck pain and Denies numbness Integumentary/Breasts Skin/Breast: Denies pruritus, Denies erythema, Denies rash and Denies wounds Neurologic Neurologic: Denies behavioral changes, Denies confusion, Denies dizziness, Denies frequent falls, Denies loss of vision, Denies numbness and Denies weakness Psychiatric Psychiatric: Denies anxiety, Denies behavioral changes, Denies confusion, Denies depression, Denies homicidal ideation and Denies suicidal ideation Endocrine Endocrine: Denies fatigue, Denies flushing and Denies palpitations Hematologic/Lymphatic Hematologic/Lymphatic: Denies easy bruising Allergic/Immunologic Allergic/Immunologic: Denies urticaria, Denies throat swelling and Denies wheezing Patient History Medical History Anxiety Depression Diabetes Hypothyroidism Neurogenic pain Social History Smoking Status: Former smoker Smoking Status: Former smoker alcohol intake frequency: holidays/special occasions only Substance Use Type: does not use Exam Narrative Exam Narrative: GEN: AOx3 and in mild distress EYES: Pupils are equal, round, and reactive to light and accommodation. Extraoccular muscles are intact bilaterally. There is no subconjunctival he morrhage or exudate. CHEST: Lungs are clear to auscultation bilaterally and free of wheezes, rales, or rhonchi. Heart rate is regular rhythm, there are no murmurs, clicks, rubs, or gallops. There is no chest wall tenderness. ABD: Abdomen is soft and nontender. There is no guarding or rebound. Bowel sounds are normal in all 4 quadrants. There is no mass or organomegaly. EXT: Full painless ROM of all extremities with no loss of sensation or strength. SKIN: Warm, pink, and dry. No erythema or rash NEURO: no numbness, tingling, or weakness of extremities. AOx3, GCS 15 Initial Vital Signs Initial Vital Signs: Vital Signs Temperature 97.1 F L 06/14/20 17:30 Pulse Rate 108 H 06/14/20 17:30 Respiratory Rate 18 06/14/20 17:30 Blood Pressure 122/75 06/14/20 17:30 Pulse Oximetry 99 06/14/20 17:30 Course Course Course Narrative: Of had multiple conversations with Dr. pelayo (ophthalmology) as well as neuro ophthalmology from [facility]. Upon receipt of MRI and is relative lack of findings we sure the opinion that hospitalization nor steroids are indicated. The plan is for the patient to follow up closely with Dr. pelayo early in the week and then hopefully get in to see Neuro-Ophthalmology at [facility] also this week. Patient has been given return precautions and has had her questions answered to her apparent satisfaction. Orders Ordered: Discontinued Medications Diazepam (Diazepam 10 Mg/2 Ml Syringe) 2 mg IV NOW ONE Stop: 06/14/20 19:02 Last Admin: 06/14/20 19:16 Dose: 2 mg Documented by: ALYSSA Vital Signs Vital signs: Vital Signs - 8 hr 06/14/20 22:29 Pulse Rate 89 Blood Pressure 121/72 Pulse Oximetry 97 MDM - Eye Problem Lab Data Result diagrams: 06/14/20 14:20 06/14/20 14:20 Labs: Lab Results 06/14/20 06/14/20 Range/Units 14:20 14:20 WBC 10.9 (4.5-11.0) X10^3/uL RBC 4.07 (4.0-5.2) X10^6/uL Hgb 12.2 (12.0-16.0) g/dL Hct 35.6 L (36-46) % MCV 87.4 (80-100) fL MCH 30.0 (26-34) PG MCHC 34.4 (30-36) % RDW 13.4 (11.6-14.8) % Plt Count 359 (150-400) X10^3/uL Neut % (Auto) 67.8 (50-75) % Lymph % (Auto) 21.1 L (25-40) % Alpine % (Auto) 5.5 (3-14) % Eos % (Auto) 4.9 H (2-4) % Baso % (Auto) 0.7 (0-2) % Neut # (Auto) 7400 H (3650-5739) /uL Lymph # (Auto) 2300 (9036-4603) /uL Alpine # (Auto) 600 (0-900) /uL Eos # (Auto) 500 H (0-450) /uL Baso # (Auto) 100 (0-100) /uL Sodium 137 (137-145) mmol/L Potassium 4.6 (3.4-5.1) mmol/L Chloride 101 (98-107) mmol/L Carbon Dioxide 25 (22-32) mmol/L BUN 20 H (7-17) mg/dL Creatinine 0.62 (0.52-1.04) mg/dL Estimated GFR > 60.0 (>60) mL/min BUN/Creatinine Ratio 32.3 H (6-22) Glucose 123 H (70-100) mg/dL Calcium 9.8 (8.4-10.2) mg/dL Total Bilirubin 0.3 (0.2-1.3) mg/dL AST 30 (14-36) IU/L ALT 25 (<35) IU/L Alkaline Phosphatase 80 (38-126) U/L Total Protein 7.6 (6.3-8.2) g/dL Albumin 4.3 (3.5-5.0) g/dL Globulin 3.3 (1.7-4.1) g/dL Albumin/Globulin Ratio 1.3 (1.0-2.8) Imaging Data MRI Brain: Radiologist's Impression: Chart Viewer Diagnostics DATE TYPE STATUS REF RANGE/AUTHOR Hx 06/14/20 17:46 Nelson Lang 06/13/20 09:58 Robert Wei 10/10/19 22:03 Adebayo Irizarry 10/20/18 16:46 Zahra Cabrales Michelle K 49, 1970 DEP ER, [facility] ED 119.38cm 56.245kg BMI: 39.5kg/m? Eye Problems Search Chart No Data to Display HIVES VOMITING AND DIARRHEA ONSET 06/14/20 22:29 Madelyn Alexis 49 F [address] [id number] Resonance Report Signed Patient: Madelyn Alexis KMR#: [id number]: 1970Acct:[id number]/Sex: 49 / FDate of Service: 06/14/20Loc: EDAccession Number: [id number] Procedure: MR head/brain wo/w con Ordering Provider: Noemi Miller D.O. PROCEDURE: MR HEAD/BRAIN WO/W CON COMPARISON: [facility], CT, CT HEAD/BRAIN WO CON, 06/13/2020, 10:05. INDICATIONS: orbit-retrobulbar FINDINGS: CEREBRUM: No hemorrhage, acute infarction, or mass. No midline shift. No significant white matter disease. The optic chiasm and optic tracts are normal. Flow voids are grossly intact. CEREBELLUM: No hemorrhage, acute infarction, or mass. The fourth ventricle, IACs and cerebellopontine angles are normal. EXTRAAXIAL: No abnormal extra-axial fluid or blood. The subarachnoid cisterns and extra-axial CSF spaces are normal. BRAINSTEM: No hemorrhage, acute infarction, or mass. DWI: No active restricted diffusion on diffusion weighted images to suggest acute ischemia. SELLA/MIDLINE: Normal sella. The midline structures are normal. The foramen magnum is normal with no Chiari malformation. VENTRICLES: Ventricular size is normal. No hydrocephalus. SKULL: No fracture or focal osseous abnormality. SINUSES/MASTOIDS: The paranasal sinuses are well aerated. The mastoid air cells are well aerated. ORBITS: The orbits, globes, and retrobulbar structures are normal. Optic nerves are symmetric. Extraocular muscles are normal. SOFT TISSUES: Normal. POST-GADOLINUM: No abnormal post gadolinium enhancement. IMPRESSION: 1. No acute intracranial abnormality. 2. No abnormal enhancement. 3. Normal orbits. Dictated by: Nelson Lang M.D. on 06/14/2020 at 20:42 Approved by: Nelson Lang M.D. on 06/14/2020 at 20:50 Discharge Plan Departure Patient Disposition: Home Clinical Impression: Acute eye pain Instructions: DI for Eye Pain Activity Restrictions/Additional Instructions: *You have been diagnosed with [ acute eye pain which does not appear to be due to optic neuritis. Your MRI has been reviewed by the radiologist and the neuro chief scientific officer and has normal findings ] *What to do: *Take medications as directed *Follow up with Dr. pelayo early in the week, call for an appointment. Let them know you were seen in the Emergency Department and that we ask that you be seen in follow up *Return to ER if you should have any new, worsening or concerning symptoms, such as worsening vision, pain or other bothersome symptoms Prescriptions: No Action estradiol 0.01 % (0.1 mg/gram) cream RF: 0 gabapentin 600 mg tablet RF: 0 propranolol 40 mg tablet 40 mg PO BID RF: 0 levothyroxine 50 mcg tablet 50 mcg PO DAILY RF: 0 venlafaxine 50 mg tablet 50 mg PO DAILY RF: 0 lovastatin 20 mg tablet 20 mg PO DAILY RF: 0 metformin 750 mg tablet extended release 24 hr 750 mg PO BID RF: 0 azithromycin 250 mg tablet See Rx Instructions .ROUTE .COMPLEX Qty: 4 RF: 0 ondansetron 4 mg tablet,disintegrating 4 mg PO TID-QID PRN (Reason: nausea and vomiting) Qty: 10 RF: 0 Referrals: Heydi Pelayo MD [Physician] - Bailey Solano PA-C [Primary Care Provider] -
[2020-06-14 22:29] VITALS: BP 121/72; PULSE 89; O2SAT 97
== END 2020-06-14 22:31 | disposition home or self-care (01) ==
PROVIDERS: Emergency Medicine; Emergency Provider Emergency Medicine; PCP Physician Assistant
DX: H57.12 Ocular pain, left eye (principal)
CPT/HCPCS: 70553; 80053; 85025; 96374; 99281; 99284; J3360

== ENCOUNTER 2021-01-28 14:24 | Emergency (ER) | payer BC, SELFPAY ==
[2021-01-28 14:53] VITALS: BP 163/80; PULSE 98; RESP 20; TEMP 36.7; O2SAT 98
--- NOTE | 2021-01-28 17:20 | ED.SKABFB ---
HPI - Skin/Abscess/Foreign Bdy General Chief complaint: Skin/Abscess/Foreign Body Stated complaint: bit by a spider on lt pointer finger. pain/swell Time Seen by Provider: 01/28/21 17:20 Source: patient Mode of arrival: Ambulatory History of Present Illness HPI narrative: 50-year-old woman with a history of hypothyroidism, anxiety, depression, hyperlipidemia presents after a ?spider flew up bit me on the tip of my finger and then I brushed her away before I could see what type of spider it was. She comes in for further evaluation. Related Data Home Medications Medication Instructions Recorded Confirmed estradiol 10/20/18 gabapentin 600 mg tablet 10/20/18 levothyroxine 50 mcg tablet 50 mcg PO DAILY 10/20/18 10/20/18 lovastatin 20 mg tablet 20 mg PO DAILY 10/20/18 10/20/18 metformin 750 mg tablet,extended 750 mg PO BID 10/20/18 10/20/18 release 24 hr propranolol 40 mg tablet 40 mg PO BID 10/20/18 10/20/18 venlafaxine 50 mg tablet 50 mg PO DAILY 10/20/18 10/20/18 Previous Rx's Medication Instructions Recorded azithromycin 250 mg tablet See Rx Instructions .ROUTE 10/10/19 .COMPLEX #4 tab ondansetron 4 mg disintegrating 4 mg PO TID-QID PRN #10 tab 02/05/20 tablet Allergies Allergy/AdvReac Type Severity Reaction Status Date / Time Sulfa (Sulfonamide Allergy Intermediate HIVES Verified 06/14/20 17:30 Antibiotics) [SULFA (SULFONAMIDE ANTIBIOTICS)] aspirin [ASPIRIN] Allergy Unknown Verified 06/14/20 17:30 codeine [CODEINE] Allergy Unknown Verified 06/14/20 17:30 hydromorphone [From DILAUDID] Allergy Unknown VOMITING Verified 06/14/20 17:30 AND DIARRHEA Review of Systems Review of Systems Narrative: No complaints of fever, chills, significant pain, rashes or swelling. Patient History Medical History Anxiety Depression Diabetes Hypothyroidism Neurogenic pain Social History Smoking Status: Former smoker Smoking Status: Former smoker alcohol intake frequency: holidays/special occasions only Substance Use Type: does not use Exam Narrative Exam Narrative: General: Alert appropriate in no acute distress Respiratory: Able to speak in full sentences, no obvious respiratory distress Skin: No obvious rashes, warm and dry Neurologic: Grossly intact no obvious asymmetries or abnormalities Psych: appropriate insight and affect, cooperative Extremity: Left index finger is examined and I can find no acute abnormalities. I do not see evidence of puncture wounds and there is no swelling, erythema or infection. Initial Vital Signs Initial Vital Signs: Vital Signs Temperature 98.0 F 01/28/21 14:53 Pulse Rate 98 H 01/28/21 14:53 Respiratory Rate 20 01/28/21 14:53 Blood Pressure 163/80 H 01/28/21 14:53 Pulse Oximetry 98 01/28/21 14:53 Course Orders Ordered: Discontinued Medications Acetaminophen (Acetaminophen 325 Mg Tablet) 975 mg PO NOW ONE Stop: 01/28/21 17:26 Vital Signs Vital signs: Vital Signs - 8 hr 01/28/21 14:53 Temperature 98.0 F Pulse Rate 98 H Respiratory Rate 20 Blood Pressure 163/80 H Pulse Oximetry 98 MDM - Skin/Abscess/Foreign Bdy MDM Narrative Medical decision making narrative: 50-year-old woman with reports that she was bit on her left index finger by a spider, she states that she saw the spider. She has no significant repercussions and reassurance is given along with guidance for conservative management. She does request a note for work today as the encounter happened just before she needed to go to work. She is safe for home discharge Discharge Plan Departure Patient Disposition: Home Clinical Impression: Insect bite Qualifiers: Encounter type: initial encounter Site of insect bite: finger Finger: index finger Laterality: left Qualified Code(s): S60.461A - Insect bite (nonvenomous) of left index finger, initial encounter Instructions: DI for Insect Bites and Stings Activity Restrictions/Additional Instructions: Thank you for coming in today Fortunately, it looks like your body is tolerating the spider bite without any difficulties. There is no indication for antibiotics or other interventions today. Using your usual meloxicam for pain control and adding Tylenol should be effective. If you feel that your fingers throbbing, keeping the hand elevated above your heart this evening may help with that. If you notice increasing swelling red streaks running up your arm or other concerning findings, please feel free to return to the ER Prescriptions: No Action estradiol 0.01 % (0.1 mg/gram) cream RF: 0 gabapentin 600 mg tablet RF: 0 propranolol 40 mg tablet 40 mg PO BID RF: 0 levothyroxine 50 mcg tablet 50 mcg PO DAILY RF: 0 venlafaxine 50 mg tablet 50 mg PO DAILY RF: 0 lovastatin 20 mg tablet 20 mg PO DAILY RF: 0 metformin 750 mg tablet extended release 24 hr 750 mg PO BID RF: 0 azithromycin 250 mg tablet See Rx Instructions .ROUTE .COMPLEX Qty: 4 RF: 0 ondansetron 4 mg tablet,disintegrating 4 mg PO TID-QID PRN (Reason: nausea and vomiting) Qty: 10 RF: 0 Referrals: Bailey Solano PA-C [Primary Care Provider] - Stand Alone Forms: Work Release Note
[2021-01-28] MEDS: ACETAMINOPHEN 325 MG TABLET 975 MG PO (17:33)
== END 2021-01-28 17:36 | disposition home or self-care (01) ==
PROVIDERS: Emergency Provider Emergency Medicine; PCP Physician Assistant
DX: S60.461A Insect bite (nonvenomous) of left index finger, initial encounter (principal); X58.XXXA Exposure to other specified factors, initial encounter
CPT/HCPCS: 99283

== ENCOUNTER 2021-02-26 08:29 | Observation (INO) | payer BC, SELFPAY ==
[2021-02-26] VITALS (23 sets, daily range): BP systolic 101–137; BP diastolic 55–85; PULSE 104–125; RESP 15–27; TEMP 37.1–38.1; O2SAT 95–100; BMI 26.1
--- NOTE | 2021-02-26 09:31 | ED_ITS ---
HPI - Abdominal Pain General Chief Complaint: Abdominal Pain Stated Complaint: Right abd constant pain/nausea x2days Time Seen by Provider: 02/26/21 09:31 Source: patient Mode of arrival: Family Vehicle Limitations: no limitations History of Present Illness HPI narrative: This is a 50-year-old female who comes to the emergency department with complaint of right-sided abdominal pain that started yesterday. Patient states it started overnight. In she describes as being mostly in the right upper quadrant but also little bit in the lower abdomen as well. She does not really have any flank pain. She has not had any fevers that she is aware of in is 99 F here. She has had some nausea but no active vomiting. She had some intermittent diarrhea and constipation but lately her bowel movements have been normal. She denies any dysuria, urgency or sense of frequency. She denies any vaginal bleeding or discharge. She has not had any prior intra-abdominal surgeries and has all of her parts except for having a vaginal resection and her prior delivery. She takes medication for diabetes, neurogenic pain, hyp othyroidism and anxiety and depression. She also mentions that her left ear feels impacted or full. She does have several allergies. She is accompanied by her today. Related Data Home Medications Medication Instructions Recorded Confirmed gabapentin 600 mg tablet 600 mg PO TID PRN 10/20/18 02/26/21 levothyroxine 50 mcg tablet 50 mcg PO DAILY 10/20/18 02/26/21 metformin 750 mg tablet,extended 750 mg PO BID 10/20/18 02/26/21 release 24 hr venlafaxine 50 mg tablet 50 mg PO DAILY 10/20/18 02/26/21 Allergies Allergy/AdvReac Type Severity Reaction Status Date / Time Sulfa (Sulfonamide Allergy Intermediate HIVES Verified 02/26/21 13:18 Antibiotics) [SULFA (SULFONAMIDE ANTIBIOTICS)] aspirin [ASPIRIN] Allergy Unknown Verified 02/26/21 13:18 codeine [CODEINE] Allergy Unknown Verified 02/26/21 13:18 hydromorphone [From DILAUDID] Allergy Unknown VOMITING Verified 02/26/21 13:18 AND DIARRHEA Review of Systems Review of Systems ROS Unobtainable: All systems reviewed & are unremarkable except as noted in HPI and below Patient History Medical History (Updated 02/26/21 @ 13:10 by Shari C Mank, DO) Anxiety Depression Diabetes Hypothyroidism Neurogenic pain Social History household members: friend(s) Smoking Status: Former smoker Smoking Status: Former smoker alcohol intake frequency: holidays/special occasions only Substance Use Type: does not use Exam Narrative Exam Narrative: GENERAL: Alert and oriented x three, female in mild distress. HEENT: Head normocephalic, atraumatic, EOMI, pupils reactive, face symmetric, moist mucous membranes NECK: Supple, full range of motion CARDIOVASCULAR: Regular rate and rhythm without murmurs, rubs or gallops. RESPIRATORY: Breath sounds equal bilaterally, no wheezes rales or rhonchi. ABDOMEN: Soft, positive for right upper and lower quadrant tenderness. Patient seems slightly more tender in the right upper. Moderate discomfort with palpation.. Normoactive bowel sounds all 4 quadrants. No guarding or rebound, rigidity, no mass, nondistended. : No CVA tenderness EXTREMITIES: Normal range of motion, no clubbing or edema. Neurovascularly intact NEUROLOGICAL: Cranial nerves II through XII grossly intact. Moving all extremities SKIN: Warm, dry, no petechiae, no rashes or lesions. Initial Vital Signs Initial Vital Signs: Vital Signs Temperature 99.9 F H 02/26/21 08:48 Pulse Rate 122 H 02/26/21 08:48 Respiratory Rate 22 02/26/21 08:48 Blood Pressure 123/71 02/26/21 08:48 Pulse Oximetry 96 02/26/21 08:48 Course Orders Ordered: ED Orders 02/26/21 10:53 Blood Culture Stat 02/26/21 11:52 COVID19 - ADMIT (INNER LAYER SCRUBBER TENDER swab/PCR) Stat Lactate (Lactic Acid) Stat 02/26/21 12:09 Urine Microscopic Stat Acetaminophen (Acetaminophen 325 Mg Tablet) 650 mg PO Q6HR PRN PRN Reason: Fever/Mild Pain (1-3) Enoxaparin Sodium (Enoxaparin 40 Mg/0.4 Ml Syringe) 40 mg SUBCUT DAILY LUISA Sodium Chloride (Normal Saline 0.9%) 1,000 mls @ 150 mls/hr IV CONT LUISA Last Admin: 02/26/21 16:57 Dose: 150 mls/hr Documented by: KKNOTT Insulin Human Lispro (Insulin Lispro 100 Unit/Ml 3ml Vial) 0 unit SUBCUT ACHS LUISA; Protocol Last Admin: 02/26/21 18:00 Dose: Not Given Documented by: MAUDE Ketorolac Tromethamine (Ketorolac 30 Mg/Ml Vial) 30 mg IV Q6H PRN PRN Reason: Pain, Moderate (4-6) Stop: 03/03/21 18:40 Morphine Sulfate (Morphine 2 Mg/Ml Inj) 2 mg IV Q4HR PRN PRN Reason: Pain, Moderate (4-6) Last Admin: 02/26/21 18:50 Dose: 2 mg Documented by: MAUDE Pantoprazole Sodium (Pantoprazole 40 Mg Vial) 40 mg IV DAILY [facility] Last Admin: 02/26/21 16:57 Dose: 40 mg Documented by: MAUDE Discontinued Medications Sodium Chloride (Normal Saline 0.9%) 1,700.97 mls @ 566.99 mls/hr 30 ml/kg infuse over 3 hr (1700.97 ml) IV NOW ONE Stop: 02/26/21 12:39 Last Infusion: 02/26/21 13:17 Dose: 0 mls/hr Documented by: Admin: 02/26/21 10:03 Dose: 566.99 mls/hr Documented by: BREN Piperacillin Sod/Tazobactam (Sod 4.5 gm/ Sodium Chloride) 100 mls @ 200 mls/hr IV NOW ONE Stop: 02/26/21 09:46 Last Infusion: 02/26/21 12:01 Dose: 0 mls/hr Documented by: Admin: 02/26/21 11:19 Dose: 200 mls/hr Documented by: BREN Ketorolac Tromethamine (Ketorolac 30 Mg/Ml Vial) 30 mg IV NOW ONE Stop: 02/26/21 09:42 Last Admin: 02/26/21 10:04 Dose: 30 mg Documented by: BREN Ondansetron HCl (Ondansetron 4 Mg/2 Ml Inj) 4 mg IV NOW ONE Stop: 02/26/21 09:42 Last Admin: 02/26/21 10:04 Dose: 4 mg Documented by: BREN Vital Signs Vital signs: Vital Signs - 8 hr 02/26/21 12:02 02/26/21 12:06 02/26/21 12:30 Pulse Rate 125 H 109 H 107 H Respiratory Rate 20 21 Blood Pressure 119/62 127/66 Pulse Oximetry 97 99 98 02/26/21 13:00 Pulse Rate 109 H Respiratory Rate 27 H Blood Pressure 121/68 Pulse Oximetry 99 MDM - Abdominal Pain Lab Data Result diagrams: 02/26/21 08:15 02/26/21 08:15 Labs: Lab Results 02/26/21 02/26/21 02/26/21 Range/Units 08:15 08:15 08:15 WBC 16.7 H (4.5-11.0) X10^3/uL RBC 4.15 (4.0-5.2) X10^6/uL Hgb 12.0 (12.0-16.0) g/dL Hct 36.2 (36-46) % MCV 87.4 (80-100) fL MCH 29.0 (26-34) PG MCHC 33.2 (30-36) % RDW 13.4 (11.6-14.8) % Plt Count 312 (150-400) X10^3/uL Neut % (Auto) 89.0 H (50-75) % Lymph % (Auto) 3.8 L (25-40) % [place] % (Auto) 4.8 (3-14) % Eos % (Auto) 2.1 (2-4) % Baso % (Auto) 0.3 (0-2) % Neut # (Auto) 68469 H (9058-8838) /uL Lymph # (Auto) 600 L (3926-7603) /uL [place] # (Auto) 800 (0-900) /uL Eos # (Auto) 400 (0-450) /uL Baso # (Auto) 0 (0-100) /uL Sodium 131 L (137-145) mmol/L Potassium 4.3 (3.4-5.1) mmol/L Chloride 99 (98-107) mmol/L Carbon Dioxide 23 (22-32) mmol/L BUN 14 (7-17) mg/dL Creatinine 0.51 L (0.52-1.04) mg/dL Estimated GFR > 60.0 (>60) mL/min BUN/Creatinine Ratio 27.5 H (6-22) Glucose 179 H (70-100) mg/dL Lactate (0.7-2.1) mmol/L Calcium 9.0 (8.4-10.2) mg/dL Total Bilirubin 0.4 (0.2-1.3) mg/dL AST 33 (14-36) IU/L ALT 37 H (<35) IU/L Alkaline Phosphatase 87 (38-126) U/L Total Protein 6.9 (6.3-8.2) g/dL Albumin 3.9 (3.5-5.0) g/dL Globulin 3.0 (1.7-4.1) g/dL Albumin/Globulin Ratio 1.3 (1.0-2.8) Lipase 471 H (23-300) U/L Procalcitonin 0.23 (<0.5) ng/mL Urine RBC (0-5/HPF) Urine WBC (0-5/HPF) Urine Bacteria (None) Ur Culture Indicated? SARS-CoV-2 (PCR) (Negative) 02/26/21 02/26/21 02/26/21 Range/Units 09:15 11:52 11:52 WBC (4.5-11.0) X10^3/uL RBC (4.0-5.2) X10^6/uL Hgb (12.0-16.0) g/dL Hct (36-46) % MCV (80-100) fL MCH (26-34) PG MCHC (30-36) % RDW (11.6-14.8) % Plt Count (150-400) X10^3/uL Neut % (Auto) (50-75) % Lymph % (Auto) (25-40) % [place] % (Auto) (3-14) % Eos % (Auto) (2-4) % Baso % (Auto) (0-2) % Neut # (Auto) (4405-7835) /uL Lymph # (Auto) (4893-4294) /uL [place] # (Auto) (0-900) /uL Eos # (Auto) (0-450) /uL Baso # (Auto) (0-100) /uL Sodium (137-145) mmol/L Potassium (3.4-5.1) mmol/L Chloride (98-107) mmol/L Carbon Dioxide (22-32) mmol/L BUN (7-17) mg/dL Creatinine (0.52-1.04) mg/dL Estimated GFR (>60) mL/min BUN/Creatinine Ratio (6-22) Glucose (70-100) mg/dL Lactate 3.6 H 3.5 H (0.7-2.1) mmol/L Calcium (8.4-10.2) mg/dL Total Bilirubin (0.2-1.3) mg/dL AST (14-36) IU/L ALT (<35) IU/L Alkaline Phosphatase (38-126) U/L Total Protein (6.3-8.2) g/dL Albumin (3.5-5.0) g/dL Globulin (1.7-4.1) g/dL Albumin/Globulin Ratio (1.0-2.8) Lipase (23-300) U/L Procalcitonin (<0.5) ng/mL Urine RBC (0-5/HPF) Urine WBC (0-5/HPF) Urine Bacteria (None) Ur Culture Indicated? SARS-CoV-2 (PCR) Negative (Negative) 02/26/21 Range/Units 12:09 WBC (4.5-11.0) X10^3/uL RBC (4.0-5.2) X10^6/uL Hgb (12.0-16.0) g/dL Hct (36-46) % MCV (80-100) fL MCH (26-34) PG MCHC (30-36) % RDW (11.6-14.8) % Plt Count (150-400) X10^3/uL Neut % (Auto) (50-75) % Lymph % (Auto) (25-40) % [place] % (Auto) (3-14) % Eos % (Auto) (2-4) % Baso % (Auto) (0-2) % Neut # (Auto) (4927-9171) /uL Lymph # (Auto) (4703-8185) /uL [place] # (Auto) (0-900) /uL Eos # (Auto) (0-450) /uL Baso # (Auto) (0-100) /uL Sodium (137-145) mmol/L Potassium (3.4-5.1) mmol/L Chloride (98-107) mmol/L Carbon Dioxide (22-32) mmol/L BUN (7-17) mg/dL Creatinine (0.52-1.04) mg/dL Estimated GFR (>60) mL/min BUN/Creatinine Ratio (6-22) Glucose (70-100) mg/dL Lactate (0.7-2.1) mmol/L Calcium (8.4-10.2) mg/dL Total Bilirubin (0.2-1.3) mg/dL AST (14-36) IU/L ALT (<35) IU/L Alkaline Phosphatase (38-126) U/L Total Protein (6.3-8.2) g/dL Albumin (3.5-5.0) g/dL Globulin (1.7-4.1) g/dL Albumin/Globulin Ratio (1.0-2.8) Lipase (23-300) U/L Procalcitonin (<0.5) ng/mL Urine RBC 1-5/hpf (0-5/HPF) Urine WBC None seen (0-5/HPF) Urine Bacteria None seen (None) Ur Culture Indicated? Cult not indicated SARS-CoV-2 (PCR) (Negative) Point of care testing: Point of Care Testing Test Results Negative Urine Dip Bedside Urine Glucose Negative Bedside Urine Bilirubin - Negative Bedside Urine Ketone - Negative Urine Specific [place] 1.015 Bedside Urine Occult Blood - Negative Bedside Urine pH 6.0 Bedside Urine Protein - Negative Bedside Urine Urobilinogen - Negative Bedside Urine Nitrite - Negative Bedside Urine Leukocytes - Negative Esterase Imaging Data CT scan - abdomen/pelvis: Radiologist's Impression: [address] [id number] Scan ReportSigned Patient: Madelyn Alexis KMR#: [id number]: 1970Acct:[id number]/Sex: 50 / FDate of Service: 02/26/21Loc: EDAccession Number: [id number] Procedure: CT abdomen pelvis w con Ordering Provider: Shari Cano D.O. PROCEDURE: CT ABDOMEN PELVIS W CON INDICATIONS: right abd pain upper and lower TECHNIQUE: After the administration of intravenous contrast, axial sections acquired from the lung bases to the pubic symphysis. Coronal and sagittal reformats were performed. For radiation dose reduction, the following was used: automated exposure control, adjustment of mA and/or kV according to patient size. COMPARISON: None. FINDINGS: Image quality: Excellent. Lung bases: Lung bases are clear. Tiny hiatal hernia. Heart: No significant findings. ABDOMEN: Liver: Liver is normal in size. There is hepatic steatosis. Gallbladder: Unremarkable. Biliary ducts: Unremarkable. Pancreas: Unremarkable. Spleen: Unremarkable. Adrenal Glands: Unremarkable. Kidneys and Ureters: Unremarkable. Stomach and Bowel: Stomach is mildly distended with an air-fluid level. There is fluid within the normal size small bowel loops. Moderate amount stool in colon. Normal appendix. Peritoneum: No abnormal intraperitoneal fluid. No free air. Ventral Wall: No hernias. Abdominal Nodes: No retroperitoneal or mesenteric adenopathy by size criteria. Vessels: Aorta and inferior vena cava are normal in size. PELVIS: Pelvic Organs: Unremarkable. Bladder: Unremarkable. Pelvic Nodes: No enlarged lymph nodes. Miscellaneous: No hernias are seen. Bones: Degenerative changes in lumbar spine with moderate central canal stenosis at L3-L4 and L4-L5. IMPRESSION: 1. Stomach is mildly distended with an air-fluid level. Small intestine is filled with fluid and demonstrates normal caliber. The CT findings suggest nonspecific gastroenteritis. No small bowel obstruction. Recommend clinical correlation. 2. Normal appendix. 3. Hepatic steatosis. Dictated by: Jeff Barker M.D. on 02/26/2021 at 10:16 Approved by: Jeff Barker M.D. on 02/26/2021 at 10:20 MDM Narrative Medical decision making narrative: This is a 50-year-old female comes in with complaint of right-sided abdominal pain slightly more upper than lower. Nausea who has been afebrile. Patient arrives tachycardic and continues to be so even after fluids. She does have White count of 16 with a lactate of 3.6 with some slightly elevated glucose and abdominal labs normal except for lipase of 471 an ALT of 37. Repeat lactate it was only down to 3.5 after initial fluids. Procalcitonin is negative. CT abdomen pelvis does not show any acute cause nor is any pneumonia caught. UA was negative cultures were obtained. Patient was covered with antibiotics but unclear source. And spoke with hospitalist who accepts for observation for septic criteria with abdominal pain but no clear source. . Discharge Plan Departure Patient Disposition: Admitted as Observation Clinical Impression: Abdominal pain, SIRS (systemic inflammatory response syndrome), Acidosis, lactic Admit Date/Time: 02/26/21 13:10 Admit Provider: Dale Cheng
--- NOTE | 2021-02-26 09:41 | DI.CT.S_ITS ---
PROCEDURE: CT ABDOMEN PELVIS W CON INDICATIONS: right abd pain upper and lower TECHNIQUE: After the administration of intravenous contrast, axial sections acquired from the lung bases to the pubic symphysis. Coronal and sagittal reformats were performed. For radiation dose reduction, the following was used: automated exposure control, adjustment of mA and/or kV according to patient size. COMPARISON: None. FINDINGS: Image quality: Excellent. Lung bases: Lung bases are clear. Tiny hiatal hernia. Heart: No significant findings. ABDOMEN: Liver: Liver is normal in size. There is hepatic steatosis. Gallbladder: Unremarkable. Biliary ducts: Unremarkable. Pancreas: Unremarkable. Spleen: Unremarkable. Adrenal Glands: Unremarkable. Kidneys and Ureters: Unremarkable. Stomach and Bowel: Stomach is mildly distended with an air-fluid level. There is fluid within the normal size small bowel loops. Moderate amount stool in colon. Normal appendix. Peritoneum: No abnormal intraperitoneal fluid. No free air. Ventral Wall: No hernias. Abdominal Nodes: No retroperitoneal or mesenteric adenopathy by size criteria. Vessels: Aorta and inferior vena cava are normal in size. PELVIS: Pelvic Organs: Unremarkable. Bladder: Unremarkable. Pelvic Nodes: No enlarged lymph nodes. Miscellaneous: No hernias are seen. Bones: Degenerative changes in lumbar spine with moderate central canal stenosis at L3-L4 and L4-L5. IMPRESSION: 1. Stomach is mildly distended with an air-fluid level. Small intestine is filled with fluid and demonstrates normal caliber. The CT findings suggest nonspecific gastroenteritis. No small bowel obstruction. Recommend clinical correlation. 2. Normal appendix. 3. Hepatic steatosis. Dictated by: Jeff Barker M.D. on 02/26/2021 at 10:16 Approved by: Jeff Barker M.D. on 02/26/2021 at 10:20
[2021-02-26 09:46] LABS: Albumin 3.9 g/dL (3.5-5.0); Albumin Globulin Ratio 1.3 (1.0-2.8); Alkaline Phosphatase 87 U/L (38-126); Aspartate Aminotransferase 33 IU/L (14-36); BUN Creatinine Ratio 27.5 (6-22); Bilirubin Total 0.4 mg/dL (0.2-1.3); Blood Urea Nitrogen 14 mg/dL (7-17); Carbon Dioxide 23 mmol/L (22-32); Chloride 99 mmol/L (98-107); Estimated Glomerular Filt Rate > 60.0 mL/min (>60); Glucose 179 mg/dL (70-100); HEMOLYSIS < 15 (0-50); Lipase 471 U/L (23-300); Potassium 4.3 mmol/L (3.4-5.1); Sodium 131 mmol/L (137-145); Total Protein 6.9 g/dL (6.3-8.2)
[2021-02-26 09:47] LABS: Add Manual Diff / Slide Review NO; Basophils Absolute Auto 0 /uL (0-100); Basophils Percent Auto 0.3 % (0-2); Eosinophils Absolute Auto 400 /uL (0-450); Eosinophils Percent Auto 2.1 % (2-4); Hematocrit 36.2 % (36-46); Lymphocytes Absolute Auto 600 /uL (1100-4500); Lymphocytes Percent Auto 3.8 % (25-40); Mean Corpuscular HGB Conc 33.2 % (30-36); Mean Corpuscular Volume 87.4 fL (80-100); Monocytes Absolute Auto 800 /uL (0-900); Monocytes Percent Auto 4.8 % (3-14); Neutrophils Absolute Auto 14900 /uL (1500-7000); Platelet Count 312 X10^3/uL (150-400); Red Blood Cell Count 4.15 X10^6/uL (4.0-5.2); Red Cell Distribution Width 13.4 % (11.6-14.8); White Blood Cell Count 16.7 X10^3/uL (4.5-11.0)
[2021-02-26 09:53] LABS: Alanine Aminotransferase 37 IU/L (<35)
[2021-02-26 09:57] LABS: Lactate (Lactic Acid) 3.6 mmol/L (0.7-2.1)
[2021-02-26] MEDS: SODIUM CHLORIDE 0.9% 1,700.97 ML 566.99 ML IV (10:03)
[2021-02-26] MEDS: KETOROLAC 30 MG/ML VIAL IV ×2 (10:04→23:45)
[2021-02-26] MEDS: ONDANSETRON 4 MG/2 ML INJ IV (10:04)
[2021-02-26] MEDS: PIPERACILLIN/TAZO 4.5 GM in SODIUM CHLORIDE 0.9% 100 ML 200 ML IV (11:19)
[2021-02-26 11:49] LABS: Reflexed Lactate in 2 Hours Y
[2021-02-26 12:11] LABS: Bacteria Urine None Seen; WBC Urine None Seen (0-5/HPF)
[2021-02-26 12:20] LABS: Lactate (Lactic Acid) 3.5 mmol/L (0.7-2.1)
[2021-02-26 13:01] LABS: Culture Indicated Urine Cult Not Indicated; RBC Urine 1-5/HPF (0-5/HPF)
[2021-02-26 13:14] LABS: COVID19 - ADMIT (NP swab/PCR) Negative (Negative)
[2021-02-26 14:04] LABS: Reflexed Lactate in 2 Hours Y
[2021-02-26 14:53] LABS: Procalcitonin 0.23 ng/mL (<0.5)
[2021-02-26 16:12] LABS: Lactate (Lactic Acid) 1.7 mmol/L (0.7-2.1)
[2021-02-26] MEDS: PANTOPRAZOLE 40 MG VIAL IV (16:57)
[2021-02-26] MEDS: SODIUM CHLORIDE 0.9% 1,000 ML 150 ML IV ×2 (16:57→21:49)
[2021-02-26] MEDS: MORPHINE 2 MG/ML INJ IV (18:50)
--- NOTE | 2021-02-26 20:13 | DI.MRI.S_ITS ---
PROCEDURE: MR ABDOMEN WO CON INDICATIONS: right sided abdominal pain TECHNIQUE: Coronal HASTE through the abdomen, axial 2-D FLASH in- and [id number], and breath-hold T2 FSE with fat saturation through the biliary system and pancreas. Oblique coronal and axial thin-slice HASTE, radial thick-slab HASTE centered on the extrahepatic bile ducts. Intravenous secretin: Not requested. COMPARISON: US, ABDOMEN COMPLETE, 02/02/2015, 12:44. [facility], CT, CT ABDOMEN PELVIS W CON, 02/26/2021, 9:50. FINDINGS: Image quality: Mildly reduced by patient motion during image acquisition.. Pancreas and biliary system: Intra- and extra-hepatic biliary ducts are non dilated. Pancreas is normal in morphology, without adjacent soft tissue edema. Pancreatic duct is normal in caliber, without developmental anomalies. Gallbladder contains a 3 mm small stone.. Other solid organs: Liver is normal in size. Spleen is normal in size. No adrenal nodules. Both kidneys are normal in size, without hydronephrosis. Nodes and vessels: No retroperitoneal or mesenteric adenopathy by size criteria. Aorta and inferior vena cava are normal in size. Bowel and peritoneum: Unenhanced bowel loops are normal in caliber. No free fluid. Lung bases: No basal pleural effusions. Heart size is normal. Bones and soft tissues: No ventral hernias. Bone marrow is of normal overall signal. IMPRESSION: 3 mm small stone within the gallbladder lumen, no evidence of biliary ductal calculus. No sign of pancreatitis. Quality of visualization is mildly reduced by persistent patient motion during image acquisition. Please note that CT scanning is inaccurate for detection of gallstones unless they are calcified. However, gallstones that are noncalcified generally can be accurately detected by ultrasound. Dictated by: Newton De M.D. on 02/27/2021 at 10:10 Approved by: Newton De M.D. on 02/27/2021 at 10:15
--- NOTE | 2021-02-26 20:17 | PM.HP.1 ---
History of Present Illness History of Present Illness Date Patient Seen: 02/26/21 Time Patient Seen: 12:00 Chief complaint: Right abd constant pain/nausea x2days Narrative: Ms. Alexis is a 50W with PMH of celiac disease, DM, hypothyroid, GRAF, HL, hypothyroid, GERD who presents with abdominal pain. She notes that last night she started having right upper quadrant abdominal pain. She had no back pain. No fevers. No vomiting, but she did have nausea. She has irregular bowel movements at baseline due to celiac, but recently have been well formed and regular. She has no dysuria. Because of this she presented to the ED. Her vitals were notable for sinus tachycardia. Labs notable for WBC of 16.7, Na 131, creatinine 0.51, glucose 179, lactate 3.6 which improved to 1.7 with fluids. Lipase 471. Procalcitonin 0.23. UA negative. COVID negative. CT of her abdomen showed a mildly distended stomach with an air-fluid level. Small intestin was filed with fluid consistent with likely gastroenteritis and no evidence of small bowel obstruction. She was given zosyn, pain medications and admitted for further treatment. Family history: Dad with diabetes Patient History Medical History (Updated 02/26/21 @ 13:10 by Shari Cano DO) Anxiety Depression Diabetes Hypothyroidism Neurogenic pain Family & Social History Social History: household members friend(s) Prior Living Arrangements House Safety & Behavioral: Feels Safe in Current Yes Environment Been Physically Hurt or No Threatened By a Person Tobacco & Substance use: Smoking Status Former smoker alcohol intake frequency holiday/special occasion Substance Use Type does not use Meds Home Medications and Allergies Home Medications Medication Instructions Recorded Confirmed Type gabapentin 600 mg tablet 600 mg PO TID PRN 10/20/18 02/26/21 History levothyroxine 50 mcg tablet 50 mcg PO DAILY 10/20/18 02/26/21 History metformin 750 mg tablet,extended 750 mg PO BID 10/20/18 02/26/21 History release 24 hr venlafaxine 50 mg tablet 50 mg PO DAILY 10/20/18 02/26/21 History Allergies Allergy/AdvReac Type Severity Reaction Status Date / Time Sulfa (Sulfonamide Allergy Intermediate HIVES Verified 02/26/21 13:18 Antibiotics) [SULFA (SULFONAMIDE ANTIBIOTICS)] aspirin [ASPIRIN] Allergy Unknown Verified 02/26/21 13:18 codeine [CODEINE] Allergy Unknown Verified 02/26/21 13:18 hydromorphone [From DILAUDID] Allergy Unknown VOMITING Verified 02/26/21 13:18 AND DIARRHEA Review of Systems Review of Systems Narrative: 14 systems reviewed and negative aside from HPI Exam Vital Signs (past 8 hours): - 02/26/21 12:30 02/26/21 13:00 02/26/21 14:22 Temperature Pulse Rate 107 H 109 H 112 H Respiratory Rate 21 27 H 19 Blood Pressure 127/66 121/68 135/76 Pulse Oximetry 98 99 100 02/26/21 15:34 02/26/21 17:01 02/26/21 19:25 Temperature 99.2 F 99.0 F Pulse Rate 111 H 112 H Respiratory Rate 20 18 Blood Pressure 128/77 127/73 Pulse Oximetry 97 98 99 Oxygen Delivery Method Room Air Narrative Exam Narrative: GENERAL: mild distress from pain HEENT: PERRL, pupils reactive,moist mucous membranes NECK: trachea midline, no JVD CARDIOVASCULAR: Regular rate and rhythm without murmurs RESPIRATORY: lungs clear bilaterally with no wheezes rhonchi rales ABDOMEN: Soft, has tenderness in right upper quadrant that is moderate with no rebound or guarding. No distention. Normal bowel sounds. No organomegaly. : No CVA tenderness EXTREMITIES: no edema NEUROLOGICAL: CN 2-12 intact. Moving all extremities with no gross deficits SKIN: Warm, dry, no petechiae, no rashes or lesions. Objective Labs Result Diagrams: 02/26/21 08:15 02/26/21 08:15 Labs: Laboratory Results - last 24 hr 02/26/21 02/26/21 02/26/21 08:15 08:15 08:15 WBC 16.7 H RBC 4.15 Hgb 12.0 Hct 36.2 MCV 87.4 MCH 29.0 MCHC 33.2 RDW 13.4 Plt Count 312 Neut % (Auto) 89.0 H Lymph % (Auto) 3.8 L [place] % (Auto) 4.8 Eos % (Auto) 2.1 Baso % (Auto) 0.3 Neut # (Auto) 84456 H Lymph # (Auto) 600 L [place] # (Auto) 800 Eos # (Auto) 400 Baso # (Auto) 0 Sodium 131 L Potassium 4.3 Chloride 99 Carbon Dioxide 23 BUN 14 Creatinine 0.51 L Estimated GFR > 60.0 BUN/Creatinine Ratio 27.5 H Glucose 179 H Lactate Calcium 9.0 Total Bilirubin 0.4 AST 33 ALT 37 H Alkaline Phosphatase 87 Total Protein 6.9 Albumin 3.9 Globulin 3.0 Albumin/Globulin Ratio 1.3 Lipase 471 H Procalcitonin 0.23 Urine RBC Urine WBC Urine Bacteria Ur Culture Indicated? SARS-CoV-2 (PCR) 02/26/21 02/26/21 02/26/21 09:15 11:52 11:52 WBC RBC Hgb Hct MCV MCH MCHC RDW Plt Count Neut % (Auto) Lymph % (Auto) [place] % (Auto) Eos % (Auto) Baso % (Auto) Neut # (Auto) Lymph # (Auto) [place] # (Auto) Eos # (Auto) Baso # (Auto) Sodium Potassium Chloride Carbon Dioxide BUN Creatinine Estimated GFR BUN/Creatinine Ratio Glucose Lactate 3.6 H 3.5 H Calcium Total Bilirubin AST ALT Alkaline Phosphatase Total Protein Albumin Globulin Albumin/Globulin Ratio Lipase Procalcitonin Urine RBC Urine WBC Urine Bacteria Ur Culture Indicated? SARS-CoV-2 (PCR) Negative 02/26/21 02/26/21 12:09 15:33 WBC RBC Hgb Hct MCV MCH MCHC RDW Plt Count Neut % (Auto) Lymph % (Auto) [place] % (Auto) Eos % (Auto) Baso % (Auto) Neut # (Auto) Lymph # (Auto) [place] # (Auto) Eos # (Auto) Baso # (Auto) Sodium Potassium Chloride Carbon Dioxide BUN Creatinine Estimated GFR BUN/Creatinine Ratio Glucose Lactate 1.7 Calcium Total Bilirubin AST ALT Alkaline Phosphatase Total Protein Albumin Globulin Albumin/Globulin Ratio Lipase Procalcitonin Urine RBC 1-5/hpf Urine WBC None seen Urine Bacteria None seen Ur Culture Indicated? Cult not indicated SARS-CoV-2 (PCR) Assessment & Plan Assessment & Plan narrative: Ms. Alexis is a 50W with PMH DM, hypothyroidism, hl, hepatic steatosis, celiac who is admitted to the hospital with right upper quadrant pain. 1. Abdominal pain, acute -etiology is likely a viral gastroenteritis -procalcitonin not consistent with bacterial infection -CT shows fluid in stomach and intestine likely consistent with gastroenteritis, no evidence of any other infection -no indication for antibiotics currently -MRCP ordered for mild transaminitis, mild elevated lipase, and ruq pain, with known hepatic steatosis -pain medications ordered -start npo for now, and advance to clear then as tolerated -no evidence of urinary, pelvic, or lung pathology -doubt that celiac is underlying cause -order for PPI 2. Tachycardia/leukocytosis -will order d-dimer to rule out PE 3. Type 2 diabetes -not on insulin at home -will place on insulin sliding scale for now -hold metformin 4. Hypothyroidism -continue synthroid 5. Hyperlipidemia -not on medications CODE: Full Proxy: Sarmad Montoya, friend I have utilized all available immediate resources to obtain, update, or review the patient's current medications. Quality MIPS - Admit I confirm the patient?s Advance Care Plan is present, Code status is documented, Surrogate decision maker is in patient?s record [If Yes, STOP here]: Yes
[2021-02-26 21:24] LABS: D Dimer 754 ng/mL (<230)
[2021-02-26] MEDS: ACETAMINOPHEN 325 MG TABLET 650 MG PO (23:46)
[2021-02-26] MEDS: GABAPENTIN 600 MG TABLET PO (23:47)
[2021-02-27] VITALS (14 sets, daily range): BP systolic 103–121; BP diastolic 59–78; PULSE 80–93; RESP 15–18; TEMP 36.1–36.7; O2SAT 95–100
[2021-02-27 00:16] LABS: Lactate (Lactic Acid) 0.8 mmol/L (0.7-2.1)
[2021-02-27 00:34] LABS: Procalcitonin 0.38 ng/mL (<0.5)
--- NOTE | 2021-02-27 00:45 | PM.CALLCOV.1 ---
Call Coverage Note Note Narrative of Care Provided: Patient reported to have a temp of 100.5. Procalcitonin is still under bacterial threshold, but rising. Blood cx still pending. WBC greater than 16 w/a significant left shift and mildly elevated lipase leading to suspicion of a bacterial source. Have reordered Zosyn 4.5 mg IV q8 hours.
[2021-02-27] MEDS: PIPERACILLIN/TAZO 4.5 GM in SODIUM CHLORIDE 0.9% 100 ML 25 ML IV ×2 (01:40→08:33)
[2021-02-27 05:17] LABS: Add Manual Diff / Slide Review NO; Basophils Absolute Auto 0 /uL (0-100); Basophils Percent Auto 0.2 % (0-2); Eosinophils Absolute Auto 100 /uL (0-450); Eosinophils Percent Auto 2.1 % (2-4); Hematocrit 31.3 % (36-46); Hemoglobin 10.5 g/dL (12.0-16.0); Lymphocytes Absolute Auto 900 /uL (1100-4500); Lymphocytes Percent Auto 13.5 % (25-40); Mean Corpuscular HGB Conc 33.7 % (30-36); Mean Corpuscular Hemoglobin 29.7 PG (26-34); Mean Corpuscular Volume 88.3 fL (80-100); Monocytes Absolute Auto 400 /uL (0-900); Monocytes Percent Auto 6.5 % (3-14); Neutrophils Absolute Auto 5100 /uL (1500-7000); Neutrophils Percent Auto 77.7 % (50-75); Platelet Count 249 X10^3/uL (150-400); Red Blood Cell Count 3.54 X10^6/uL (4.0-5.2); Red Cell Distribution Width 13.1 % (11.6-14.8); White Blood Cell Count 6.6 X10^3/uL (4.5-11.0)
[2021-02-27] MEDS: SODIUM CHLORIDE 0.9% 1,000 ML 150 ML IV (05:25)
[2021-02-27 05:27] LABS: BUN Creatinine Ratio 12.3 (6-22); Blood Urea Nitrogen 8 mg/dL (7-17); Calcium 7.7 mg/dL (8.4-10.2); Carbon Dioxide 26 mmol/L (22-32); Chloride 108 mmol/L (98-107); Estimated Glomerular Filt Rate > 60.0 mL/min (>60); Glucose 131 mg/dL (70-100); HEMOLYSIS < 15 (0-50); Potassium 3.6 mmol/L (3.4-5.1); Sodium 139 mmol/L (137-145)
[2021-02-27 07:27] LABS: Alanine Aminotransferase 31 IU/L (<35); Albumin Globulin Ratio 1.1 (1.0-2.8); Alkaline Phosphatase 55 U/L (38-126); Aspartate Aminotransferase 33 IU/L (14-36); Bilirubin Total 0.5 mg/dL (0.2-1.3); Bilirubin Unconjugated 0.3 mg/dL (0.0-1.1); Globulin 2.7 g/dL (1.7-4.1); HEMOLYSIS < 15 (0-50); Lipase 63 U/L (23-300); Total Protein 5.7 g/dL (6.3-8.2)
[2021-02-27] MEDS: LORazepam 2 MG/ML INJ 1 MG IV (07:38)
[2021-02-27] MEDS: PANTOPRAZOLE 40 MG VIAL IV (08:31)
[2021-02-27] MEDS: ENOXAPARIN 40 MG/0.4 ML SYRINGE SUBCUT (08:31)
[2021-02-27] MEDS: LEVOTHYROXINE 50 MCG TABLET PO (08:33)
[2021-02-27] MEDS: VENLAFAXINE HCL 100 MG TABLET 50 MG PO (08:35)
--- NOTE | 2021-02-27 11:58 | CM.IDA ---
Initial DCP Assessment Note Pt is a 50 yo female, resident of [place], arrives with abd pain, suspected viral gastroenteritis. Patient has been DC home today, no needs per Dr Cheng. PCP: Bailey Solano Payer: [facility] Reviewed chart, pt discussed in multidisciplinary rounds this morning. Attempted assessment at bedside and patient sleeping soundly. Patient lives w/friends, indp and active at baseline. [facility] [employer] No needs expected from DC planning team although will remain available in case this changes today. BRI Freed Discharge Planning/Care Management CM Discharge Assessment Start: 02/27/21 11:52 Freq: Status: Active Protocol: Document 02/27/21 11:52 AZALIA (Rec: 02/27/21 11:58 AZALIA [id number]) Discharge Planning Assessment Assigned Electrophysiology Nurse Practitioner BRI Joya DPOA/Assigned Designee Name No YAKOV FULLER listed is friend Sarmad Montoya Contact Information [phone] Advance Directives? No History Provided By Medical Record Prior Living Arrangements House Household Members friend(s) Type of transporation used prior to Drives own vehicle admit Independent with ADL's Yes Is patient alert and oriented? Yes Barriers to Discharge No Discharge Plan Home Transportation Arrangement Friend Referrals Initiated None needed
[2021-02-27] MEDS: GABAPENTIN 600 MG TABLET PO ×2 (12:30→21:25)
[2021-02-27] MEDS: AZITHROMYCIN 250 MG TABLET 500 MG PO (13:06)
[2021-02-27] MEDS: INSULIN LISPRO 100 UNIT/ML 3ML VIAL SUBCUT (17:00)
[2021-02-27] MEDS: ACETAMINOPHEN 325 MG TABLET 650 MG PO (17:13)
--- NOTE | 2021-02-27 17:34 | PC.NURSE ---
Addendum entered by Rabia Sousa R.N. 02/27/21 22:44: Pt consistently rates abdominal pain 4/10. Is eating well, up to bathroom independently and positions self independently in bed. Meds as per emar. Original Note: Pt resting quietly in bed on right side with eyes closed. Rouses easily to voice. Admits to pain right mid and upper abdominal quadrant 4/10 that is just there. Abdomen is soft with positive bowel tones. Denies nausea. Takes diet well without hesitation. Up ad dontrell to bathroom to void. Administered tylenol to manage pain and will monitor for relief and improvement.
--- NOTE | 2021-02-27 18:54 | P.PN_ITS ---
Subjective Subjective Date Patient Seen: 02/27/21 Time Patient Seen: 08:00 Interval history: Today she feels moderately improved. She has moderate improvement in abdominal pain. Exam Vital Signs (past 8 hours): - 02/27/21 12:48 02/27/21 13:00 02/27/21 15:30 Temperature 97.5 F L 98.1 F Pulse Rate 93 H 89 Respiratory Rate 15 16 Blood Pressure 117/73 108/75 Pulse Oximetry 97 95 97 02/27/21 16:41 Temperature Pulse Rate Respiratory Rate Blood Pressure Pulse Oximetry 98 Oxygen Delivery Method Room Air Oxygen Flow Rate 0 Narrative Exam Narrative: GENERAL: mild distress from pain HEENT: PERRL, pupils reactive,moist mucous membranes NECK: trachea midline, no JVD CARDIOVASCULAR: Regular rate and rhythm without murmurs RESPIRATORY: lungs clear bilaterally with no wheezes rhonchi rales ABDOMEN: Soft, has tenderness in right upper quadrant that is moderate with no rebound or guarding. No distention. Normal bowel sounds. No organomegaly. : No CVA tenderness EXTREMITIES: no edema NEUROLOGICAL: CN 2-12 intact. Moving all extremities with no gross deficits SKIN: Warm, dry, no petechiae, no rashes or lesions. Objective Labs Result Diagrams: 02/27/21 05:10 02/27/21 05:10 Labs: Laboratory Results - last 24 hr 02/26/21 02/26/21 02/26/21 21:00 21:00 21:00 WBC RBC Hgb Hct MCV MCH MCHC RDW Plt Count Neut % (Auto) Lymph % (Auto) [place] % (Auto) Eos % (Auto) Baso % (Auto) Neut # (Auto) Lymph # (Auto) [place] # (Auto) Eos # (Auto) Baso # (Auto) D-Dimer 754 H Sodium Potassium Chloride Carbon Dioxide BUN Creatinine Estimated GFR BUN/Creatinine Ratio Glucose Lactate 0.8 Calcium Total Bilirubin Conjugated Bilirubin Unconjugated Bilirubin AST ALT Alkaline Phosphatase Total Protein Albumin Globulin Albumin/Globulin Ratio Lipase Procalcitonin 0.38 02/27/21 02/27/21 02/27/21 05:10 05:10 05:10 WBC 6.6 D RBC 3.54 L Hgb 10.5 L Hct 31.3 L MCV 88.3 MCH 29.7 MCHC 33.7 RDW 13.1 Plt Count 249 Neut % (Auto) 77.7 H Lymph % (Auto) 13.5 L [place] % (Auto) 6.5 Eos % (Auto) 2.1 Baso % (Auto) 0.2 Neut # (Auto) 5100 Lymph # (Auto) 900 L [place] # (Auto) 400 Eos # (Auto) 100 Baso # (Auto) 0 D-Dimer Sodium 139 Potassium 3.6 Chloride 108 H Carbon Dioxide 26 BUN 8 Creatinine 0.65 Estimated GFR > 60.0 BUN/Creatinine Ratio 12.3 Glucose 131 H Lactate Calcium 7.7 L Total Bilirubin 0.5 Conjugated Bilirubin 0.0 Unconjugated Bilirubin 0.3 AST 33 ALT 31 Alkaline Phosphatase 55 Total Protein 5.7 L Albumin 3.0 L Globulin 2.7 Albumin/Globulin Ratio 1.1 Lipase 63 D Procalcitonin [facility] Medical History (Updated 02/26/21 @ 13:10 by Shari Cano DO) Anxiety Depression Diabetes Hypothyroidism Neurogenic pain Social History household members: friend(s) Smoking Status: Former smoker Assessment & Plan Assessment & Plan narrative: Ms. Alexis is a 50W with PMH DM, hypothyroidism, hl, hepatic steatosis, celiac who is admitted to the hospital with right upper quadrant pain. 1. 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 Tachycardia/leukocytosis -improved 3. Type 2 diabetes -not on insulin at home -will place on insulin sliding scale for now -hold metformin 4. Hypothyroidism -continue synthroid 5. Hyperlipidemia -not on medications CODE: Full Proxy: Sarmad Montoya, friend I have utilized all available immediate resources to obtain, update, or review the patient's current medications.
[2021-02-27] MEDS: SODIUM CHLORIDE 0.9% FLUSH 10 ML IV (21:17)
[2021-02-27] MEDS: KETOROLAC 30 MG/ML VIAL IV (21:25)
[2021-02-28] VITALS: BP 123/79; PULSE 82; RESP 18; TEMP 36.2; O2SAT 99
[2021-02-28 01:02] VITALS: O2SAT 99
[2021-02-28 04:22] VITALS: BP 119/72; PULSE 73; RESP 18; TEMP 36.2; O2SAT 96
[2021-02-28 05:02] VITALS: O2SAT 98
[2021-02-28 05:25] LABS: Hemoglobin 10.6 g/dL (12.0-16.0); Mean Corpuscular HGB Conc 33.3 % (30-36); Mean Corpuscular Hemoglobin 29.5 PG (26-34); Mean Corpuscular Volume 88.7 fL (80-100); Platelet Count 255 X10^3/uL (150-400); Red Cell Distribution Width 13.4 % (11.6-14.8); White Blood Cell Count 5.6 X10^3/uL (4.5-11.0)
[2021-02-28 05:30] LABS: BUN Creatinine Ratio 26.3 (6-22); Blood Urea Nitrogen 15 mg/dL (7-17); Calcium 9.1 mg/dL (8.4-10.2); Carbon Dioxide 28 mmol/L (22-32); Chloride 108 mmol/L (98-107); Estimated Glomerular Filt Rate > 60.0 mL/min (>60); Glucose 151 mg/dL (70-100); HEMOLYSIS < 15 (0-50); Potassium 4.2 mmol/L (3.4-5.1); Sodium 140 mmol/L (137-145)
[2021-02-28 05:47] LABS: Procalcitonin 0.18 ng/mL (<0.5)
[2021-02-28 08:00] VITALS: BP 123/81; PULSE 89; RESP 15; TEMP 36.9; O2SAT 97
[2021-02-28] MEDS: AZITHROMYCIN 250 MG TABLET 500 MG PO (09:03)
[2021-02-28] MEDS: INSULIN LISPRO 100 UNIT/ML 3ML VIAL SUBCUT (09:03)
[2021-02-28] MEDS: LEVOTHYROXINE 50 MCG TABLET PO (09:04)
[2021-02-28] MEDS: ENOXAPARIN 40 MG/0.4 ML SYRINGE SUBCUT (09:04)
[2021-02-28] MEDS: VENLAFAXINE HCL 100 MG TABLET 50 MG PO (09:04)
[2021-02-28] MEDS: SODIUM CHLORIDE 0.9% FLUSH 10 ML IV (09:04)
[2021-02-28] MEDS: PANTOPRAZOLE 40 MG VIAL IV (09:04)
--- NOTE | 2021-02-28 09:10 | P.DS_ITS ---
History of Present Illness History of Present Illness Date Patient Seen: 02/28/21 Time Patient Seen: 09:10 Chief complaint: Right abd constant pain/nausea x2days Narrative: Per Dr. Cheng, Ms. Alexis is a 50W with PMH of celiac disease, DM, hypothyroid, GRAF, HL, hypothyroid, GERD who presents with abdominal pain. She notes that last night she started having right upper quadrant abdominal pain. She had no back pain. No fevers. No vomiting, but she did have nausea. She has irregular bowel movements at baseline due to celiac, but recently have been well formed and regular. She has no dysuria. Because of this she presented to the ED. Her vitals were notable for sinus tachycardia. Labs notable for WBC of 16.7, Na 131, creatinine 0.51, glucose 179, lactate 3.6 which improved to 1.7 with fluids. Lipase 471. Procalcitonin 0.23. UA negative. COVID negative. CT of her abdomen showed a mildly distended stomach with an air-fluid level. Small intestin was filed with fluid consistent with likely gastroenteritis and no evidence of small bowel obstruction. She was given zosyn, pain medications and admitted for further treatment. Family history: Dad with diabetes Discharge Providers Provider Date of admission: 02/26/21 13:10 Discharge Date: 02/28/21 Primary care physician: Bailey Solano PA-C Discharge provider: Cullen Albright DO Summary Hospital Course Discharge Diagnosis: 1. Abdominal pain, acute 2. Tachycardia/leukocytosis, resolved 3. Type 2 diabetes 4. Hypothyroidism 5. Hyperlipidemia Hospital Course: Madelyn Alexis is a 50W with PMH DM, hypothyroidism, hl, hepatic steatosis, celiac who was admitted to the hospital for right upper quadrant pain . She had a mild fever and leukocytosis initially, however there were no obvious signs of infection and no elevation in procalcitonin to suggest a bacterial etiology. She remained afebrile for at least 24 hours off of antibiotics with improvement in her abdominal pain, and she was able to tolerate a diet on the day of discharge. Extensive workup for the cause of her abdominal pain have lung largely unremarkable except for a CT scan which showed gastroenteritis. She also had an MRCP given mild elevation in her transaminase levels and mildly elevated lipase that only showed a small nonobstructing stone. Etiologies for hyper dominant pain include a viral gastroenteritis which is now improved, and although I cannot completely rule out a biliary pathology it seems unlikely at this time. Given her improvement she is able to discharge home today, however if her pain continues to linger would recommend follow-up with her outpatient primary care provider. Time Spent with Patient Time spent: Less than 30 minutes Exam Vital Signs (past 8 hours): - 02/28/21 04:22 02/28/21 05:02 02/28/21 08:00 Temperature 97.1 F L 98.4 F Pulse Rate 73 89 Respiratory Rate 18 15 Blood Pressure 119/72 123/81 Pulse Oximetry 96 98 97 Oxygen Delivery Method Room Air Oxygen Flow Rate 0 Narrative Exam Narrative: GENERAL: no acute distress, pleasant 50 year old female HEENT: PERR,moist mucous membranes NECK: trachea midline, no JVD ABDOMEN: Soft, has tenderness in right upper quadrant that is minimal today with no rebound or guarding. No distention. Normal bowel sounds. No organomegaly. : No CVA tenderness EXTREMITIES: no edema NEUROLOGICAL: CN 2-12 intact. Moving all extremities with no gross deficits SKIN: Warm, dry, no petechiae, no rashes or lesions. Objective Labs Result Diagrams: 02/28/21 05:00 02/28/21 05:00 Labs: Laboratory Results - last 24 hr 02/28/21 02/28/21 02/28/21 05:00 05:00 05:00 WBC 5.6 RBC 3.60 L Hgb 10.6 L Hct 32.0 L MCV 88.7 MCH 29.5 MCHC 33.3 RDW 13.4 Plt Count 255 Sodium 140 Potassium 4.2 Chloride 108 H Carbon Dioxide 28 BUN 15 Creatinine 0.57 Estimated GFR > 60.0 BUN/Creatinine Ratio 26.3 H Glucose 151 H Calcium 9.1 Procalcitonin 0.18 PFSH Medical History (Updated 02/26/21 @ 13:10 by Shari Cano DO) Anxiety Depression Diabetes Hypothyroidism Neurogenic pain Social History household members: friend(s) Smoking Status: Former smoker Discharge Plan Discharge Plan Patient Disposition: Home Provider Discharge Comment: You were admitted to the hospital with abdominal pain and fever. Etiology is not entirely clear but though is most likely a viral infection. No medication changes are recommended at this time. Please follow up with PCP as previously scheduled or if symptoms continue to linger. Discharge orders & Medications Prescriptions: Continued gabapentin 600 mg tablet 600 mg PO TID PRN (Reason: Pain (Scale Score 1-3)) RF: 0 levothyroxine 50 mcg tablet 50 mcg PO DAILY RF: 0 venlafaxine 50 mg tablet 50 mg PO DAILY RF: 0 metformin 750 mg tablet extended release 24 hr 750 mg PO BID RF: 0 Medication counseling provided by Pharmacist: Yes Follow up/Referrals: Bailey Solano PA-C [Primary Care Provider] - Diet/Activity/Treatments Diet: Diet as Tolerated Activity: As tolerated Discharge Data Primary Care Provider: Bailey Solano Attending Provider: Dale Cheng
--- NOTE | 2021-02-28 09:21 | PC.NURSE ---
Addendum entered by Zari Shrestha R.N. 02/28/21 13:21: Patient discharged via wheelchair to friends vehicle. Addendum entered by Zari Shrestha R.N. 02/28/21 11:08: Patient given discharge instructions regarding s/s of worsening condition and continuing home medications as prescribed. Patient verbalized understanding. Belongings, including purse, cellphone and [place] line attendant gathered for patient. Patient's IV removed. Patient awaiting ride at this time. Original Note: Patient resting in bed, c/o mild abdominal pain in RUQ, soft, BS active x 4, voiding. Denies N/V. Denies needs at this time. Call light in reach. in to see patient this AM.
--- NOTE | 2021-02-28 09:37 | CM.DPNOTE ---
DCP Note Met w/patient this morning, she confirms she lives w/a few friends and feels she has what she needs for return home. Friend Sarmad will transport home, DC expected today. Plan: Home w/friends, private transport JW
== END 2021-02-28 13:10 | disposition home or self-care (01) ==
LOC: ED 13:10 → AC 13:13
PROVIDERS: Nurse Practitioner Family; Admitting Provider Internal Medicine; Emergency Provider Emergency Medicine; PCP Physician Assistant; Referring Provider Emergency Medicine; Visit Provider Internal Medicine
DX: R10.11 Right upper quadrant pain (principal); E11.9 Type 2 diabetes mellitus without complications; E03.9 Hypothyroidism, unspecified; F32.9 Major depressive disorder, single episode, unspecified; F41.9 Anxiety disorder, unspecified; Z79.84 Long term (current) use of oral hypoglycemic drugs; E78.5 Hyperlipidemia, unspecified; R00.0 Tachycardia, unspecified; D72.829 Elevated white blood cell count, unspecified; K76.0 Fatty (change of) liver, not elsewhere classified; Z20.822 Contact with and (suspected) exposure to COVID-19
CPT/HCPCS: 36415; 74177; 74181; 80048; 80053; 80076; 81003; 81015; 81025; 82962; 83605; 83690; 84145; 85025; 85027; 85379; 87040; 87045; 87635; 87899; 93005; 94760; 96361; 96365; 96366; 96372; 96375; 96376; 99284; C9803; G0378; A9270; C9113; J1650; J1815; J1885; J2060; J2270; J2405; J2543; Q9967

== ENCOUNTER → 2021-04-24 14:34 | Outpatient (CLI) | payer BC, SELFPAY ==
[2021-02-26 13:52] VITALS: BMI 26.1
--- NOTE | 2021-04-24 | DI.RAD.S_ITS ---
PROCEDURE: XR ANKLE LT MIN 3V INDICATIONS: left ankle pain TECHNIQUE: 3 views of the ankle were acquired. COMPARISON: None. FINDINGS: Bones: No fractures or dislocations. Ankle mortise is normally aligned. No suspicious bony lesions. Small medial bone spurs. Soft tissues: No tibiotalar joint effusion. Achilles tendon appears normal. IMPRESSION: No fracture. No osseous lesion. If symptoms and/or clinical suspicion for pathology persists, further assessment with repeat radiographs (7-10 days) or advanced imaging (e.g. CT, MRI or bone scan) should be considered. Dictated by: Deonna Morales MD, PhD on 04/24/2021 at 17:52 Approved by: Deonna Morales MD, PhD on 04/24/2021 at 17:52
== END ==
PROVIDERS: PCP Physician Assistant; Referring Provider Physician Assistant; Visit Provider Physician Assistant
DX: M25.572 Pain in left ankle and joints of left foot (principal)
CPT/HCPCS: 73610

== ENCOUNTER 2021-12-27 16:03 | Emergency (ER) | payer BC, SELFPAY ==
[2021-02-26 13:52] VITALS: BMI 26.1
[2021-12-27] VITALS (7 sets, daily range): BP systolic 118–138; BP diastolic 70–83; PULSE 97–111; RESP 13–20; TEMP 36.4; O2SAT 96–99; BMI 26.7
[2021-12-27 17:06] LABS: Add Manual Diff / Slide Review NO; Basophils Absolute Auto 0 /uL (0-100); Basophils Percent Auto 0.3 % (0-2); Eosinophils Absolute Auto 0 /uL (0-450); Eosinophils Percent Auto 0.1 % (2-4); Hemoglobin 12.7 g/dL (12.0-16.0); Lymphocytes Absolute Auto 1400 /uL (1100-4500); Lymphocytes Percent Auto 21.4 % (25-40); Mean Corpuscular HGB Conc 34.3 % (30-36); Mean Corpuscular Hemoglobin 29.6 PG (26-34); Mean Corpuscular Volume 86.4 fL (80-100); Monocytes Absolute Auto 600 /uL (0-900); Neutrophils Absolute Auto 4600 /uL (1500-7000); Neutrophils Percent Auto 69.2 % (50-75); Platelet Count 268 X10^3/uL (150-400); Red Blood Cell Count 4.29 X10^6/uL (4.0-5.2); Red Cell Distribution Width 14.1 % (11.6-14.8); White Blood Cell Count 6.7 X10^3/uL (4.5-11.0)
[2021-12-27 17:15] LABS: Alanine Aminotransferase 32 IU/L (<35); Albumin 4.6 g/dL (3.5-5.0); Albumin Globulin Ratio 1.4 (1.0-2.8); Alkaline Phosphatase 72 U/L (38-126); Aspartate Aminotransferase 34 IU/L (14-36); BUN Creatinine Ratio 22.4 (6-22); Bilirubin Total 0.2 mg/dL (0.2-1.3); Blood Urea Nitrogen 17 mg/dL (7-17); Calcium 9.3 mg/dL (8.4-10.2); Carbon Dioxide 27 mmol/L (22-32); Chloride 99 mmol/L (98-107); Estimated Glomerular Filt Rate > 60 mL/min (>60); Globulin 3.3 g/dL (1.7-4.1); Glucose 124 mg/dL (70-100); HEMOLYSIS < 15 (0-50); Potassium 4.6 mmol/L (3.4-5.1); Sodium 135 mmol/L (137-145); Total Protein 7.9 g/dL (6.3-8.2)
[2021-12-27 17:23] LABS: D Dimer 274 ng/mL (<230)
--- NOTE | 2021-12-27 18:23 | ED_ITS ---
HPI - Recheck/Abnormal Lab/Rx General Chief Complaint: Recheck/Abnormal Lab/Rx Stated Complaint: Labs recheck Time Seen by Provider: 12/27/21 17:30 Source: patient Mode of arrival: Ambulatory History of Present Illness HPI narrative: 51-year-old female nonsmoker with history of hypothyroid and diabetes presents with her at the request of an outside facility. She had been feeling poorly for the better part of a week and in this includes occasional chest pain, shortness of breath with exertion, and an abnormal D-dimer. She has no chest pain now and is resting comfortably. She denies any headache or blurred vision or runny nose or sore throat. She states that she had an episode of chest pain that she thinks was probably on and reached across her chest and remind her of fibromyalgia flare ups. She denies any obvious provocation, palliation or radiation and, as stated is not currently having any discomfort. She has been feeling increasingly short of breath, primarily with exertion. She denies any orthopnea, change in weight or lower extremity swelling. She has had no nausea, vomiting or abdominal pain but does admit to the occasional loose stool. She denies dysuria, frequency or urgency. She has had no long distance travel, history of cancer or blood clot. She has had no fever or chills. She was seen and evaluated a few days ago at an outpatient clinic and had blood work drawn including a D-dimer which was apparently elevated, the exact level is unknown but they were contacted at home and encouraged to come see us for evaluation Related Data Home Medications Medication Instructions Recorded Confirmed gabapentin 600 mg tablet 600 mg PO TID PRN 10/20/18 02/26/21 levothyroxine 50 mcg tablet 50 mcg PO DAILY 10/20/18 02/26/21 metformin 750 mg tablet,extended 750 mg PO BID 10/20/18 02/26/21 release 24 hr venlafaxine 50 mg tablet 50 mg PO DAILY 10/20/18 02/26/21 Allergies Allergy/AdvReac Type Severity Reaction Status Date / Time Sulfa (Sulfonamide Allergy Intermediate HIVES Verified 02/26/21 13:18 Antibiotics) [SULFA (SULFONAMIDE ANTIBIOTICS)] aspirin [ASPIRIN] Allergy Unknown Verified 02/26/21 13:18 codeine [CODEINE] Allergy Unknown Verified 02/26/21 13:18 hydromorphone [From DILAUDID] Allergy Unknown VOMITING Verified 02/26/21 13:18 AND DIARRHEA Review of Systems Review of Systems Narrative: GENERAL: Denies chills, fatigue, malaise, fever, sweats. HEENT: Denies sinus pain, ear pain, sore throat, difficulty swallowing, dizziness. RESPIRATORY: See HPI CARDIOVASCULAR: See HPI GASTROINTESTINAL: See HPI : Denies dysuria, frequency, incontinence, hematuria, urinary retention. MUSCULOSKELETAL: denies weakness, joint pain, or bony pain SKIN: Denies rash, skin lesions, or other NEUROLOGIC: Denies weakness, headache, numbness, change in speech, confusion, seizures, incoordination. PSYCHIATRIC: No concerning psychosocial issues. 12 point review of systems is negative except for those stated above Patient History Medical History (Updated 12/27/21 @ 20:[address] DO) Anxiety Depression Diabetes Hypothyroidism Neurogenic pain Social History household members: friend(s) Smoking Status: Former smoker Smoking Status: Former smoker alcohol intake frequency: holidays/special occasions only Substance Use Type: does not use Exam Narrative Exam Narrative: GENERAL: [51] year old patient appears stated age. Well-developed patient, in mild distress. HEAD: Atraumatic. Normocephalic. EYES: Pupils equal round and reactive. Extraocular motions intact. No scleral icterus. No injection or drainage. ENT: Nose without bleeding, purulent drainage. Throat without erythema, tonsillar hypertrophy or exudate. Airway patent. NECK: Trachea midline. Non tender CARDIOVASCULAR: Tachycardic and regular rhythm without murmurs, gallops, or rubs. RESPIRATORY: Clear to auscultation. Breath sounds equal bilaterally. No wheezes, rales, or rhonchi. GASTROINTESTINAL: Abdomen soft, non-tender, nondistended. EXTREMITIES: No edema or joint tenderness. BACK: Nontender without deformity or crepitance. No flank tenderness. NEURO: AOx3. SKIN: No rash or erythema of visible areas Initial Vital Signs Initial Vital Signs: Vital Signs Temperature 97.5 F L 12/27/21 16:25 Pulse Rate 100 H 12/27/21 16:25 Respiratory Rate 18 12/27/21 16:25 Blood Pressure 125/83 12/27/21 16:25 Pulse Oximetry 99 12/27/21 16:25 Scores HEART Score Heart Score history: Slightly Suspicious Heart Score EKG: Normal Heart Score Age: 45-64 years old Heart Score risk factors: 1-2 risk factors Heart Score troponin: < or = to normal limit Heart Score Total: 2 Course Orders Ordered: ED Orders 12/27/21 16:48 CBC Auto Diff [Complete Blood Count AUTO DIFF] Stat CMP [Comprehensive Metabolic Panel] Stat D Dimer Stat 12/27/21 18:35 CT angio chest PE protocol Stat 12/27/21 18:42 EKG-12 Lead Stat Discontinued Medications Sodium Chloride (Normal Saline 0.9%) 1,000 mls @ 1,000 mls/hr IV BOLUS ONE Stop: 12/27/21 19:34 Last Admin: 12/27/21 19:11 Dose: 1,000 mls/hr Documented by: NEELAM Vital Signs Vital signs: Vital Signs - 8 hr 12/27/21 16:25 12/27/21 18:23 12/27/21 18:25 Temperature 97.5 F L Pulse Rate 100 H 111 H 108 H Respiratory Rate 18 16 Blood Pressure 125/83 121/75 Pulse Oximetry 99 96 98 12/27/21 18:30 12/27/21 19:00 12/27/21 19:30 Temperature Pulse Rate 105 H 103 H 97 H Respiratory Rate 13 18 16 Blood Pressure 118/75 125/70 125/72 Pulse Oximetry 98 98 98 MDM - Recheck/Abnormal Lab/Rx Lab Data Result diagrams: 12/27/21 16:48 12/27/21 16:48 Labs: Lab Results 12/27/21 12/27/21 12/27/21 Range/Units 16:48 16:48 16:48 WBC 6.7 (4.5-11.0) X10^3/uL RBC 4.29 (4.0-5.2) X10^6/uL Hgb 12.7 (12.0-16.0) g/dL Hct 37.0 (36-46) % MCV 86.4 (80-100) fL MCH 29.6 (26-34) PG MCHC 34.3 (30-36) % RDW 14.1 (11.6-14.8) % Plt Count 268 (150-400) X10^3/uL Neut % (Auto) 69.2 (50-75) % Lymph % (Auto) 21.4 L (25-40) % [place] % (Auto) 9.0 (3-14) % Eos % (Auto) 0.1 L (2-4) % Baso % (Auto) 0.3 (0-2) % Neut # (Auto) 4600 (6385-7666) /uL Lymph # (Auto) 1400 (4498-8976) /uL [place] # (Auto) 600 (0-900) /uL Eos # (Auto) 0 (0-450) /uL Baso # (Auto) 0 (0-100) /uL D-Dimer 274 H (<230) ng/mL Sodium 135 L (137-145) mmol/L Potassium 4.6 (3.4-5.1) mmol/L Chloride 99 (98-107) mmol/L Carbon Dioxide 27 (22-32) mmol/L BUN 17 (7-17) mg/dL Creatinine 0.76 (0.52-1.04) mg/dL Estimated GFR > 60 (>60) mL/min BUN/Creatinine Ratio 22.4 H (6-22) Glucose 124 H (70-100) mg/dL Calcium 9.3 (8.4-10.2) mg/dL Total Bilirubin 0.2 (0.2-1.3) mg/dL AST 34 (14-36) IU/L ALT 32 (<35) IU/L Alkaline Phosphatase 72 (38-126) U/L Total Protein 7.9 (6.3-8.2) g/dL Albumin 4.6 (3.5-5.0) g/dL Globulin 3.3 (1.7-4.1) g/dL Albumin/Globulin Ratio 1.4 (1.0-2.8) Imaging Data CT scan - chest: Radiologist's Impression: Launch?[address] [address] [address] Scan Report Signed Patient: Madelyn Alexis MR#: [id number] : 1970 Acct:[id number] Age/Sex: 51 / F Date of Service: 12/27/21 Loc: ED Accession Number: [id number] ?? Procedure: CT angio chest PE protocol Ordering Provider: Ramsey Way D.O. PROCEDURE:? CT ANGIO CHEST PE PROTOCOL ? INDICATIONS:? CP, SOB, tachycardia, elevated D Dimer ? TECHNIQUE:? After the administration of intravenous contrast, 2 mm thick sections acquired from the pulmonary apices to the posterior costophrenic angles.? 3-dimensional maximum intensity projection (MIP) coronal and sagittal reformats were then acquired through the thorax.? For radiation dose reduction, the following was used:? automated exposure control, adjustment of mA and/or kV according to patient size.? ? COMPARISON:? None. ? FINDINGS:? Image quality:? Excellent.? ? Pulmonary arteries:? Pulmonary arteries are normal in size, and demonstrate no intraluminal filling defects to suggest central pulmonary embolism.? ? Lungs and pleura:? Lungs are clear.? No pleural effusions or pneumothorax.? Central and peripheral airways are patent.? ? Mediastinum:? Heart size is normal, without pericardial effusion.? No mediastinal or hilar adenopathy.? Thoracic aorta is normal in caliber and enhancement.? Esophagus is normal in caliber, without hiatal hernia.? ? Bones and chest wall:? No suspicious bony lesions.? Ribs and thoracic spine appear intact throughout. Spine degenerative disc disease and facet arthropathy.? Thyroid gland is limits where visualized.? No axillary or supraclavicular adenopathy.? ? Abdomen:? Visualized upper abdominal solid organs appear normal in the early arterial phase of enhancement.? ? IMPRESSION:? ? 1. No pulmonary embolus. ? 2. No lung consolidation or pleural effusions.? ? ? Dictated by: Deonna Morales MD, PhD on 12/27/2021 at 19:14 ? ? Approved by: Deonna Morales MD, PhD on 12/27/2021 at 19:17 ? ECG Data Interpretation: EKG is normal sinus rhythm rate [ 95] and free of any signs of ischemia or ectopy. No ST segmental elevation or depression. No T wave inversions MDM Narrative Medical decision making narrative: Multiple etiologies for patient's symptoms considered including: [Cardiac ischemia versus pulmonary embolism versus other Multiple causes of chest pain considered including MO, PE, pneumothorax, pneumonia, aortic dissection, and pleurisy. Patient reports no radiation, no diaphoresis, no provocation with exertion, and no vomiting. Heart score is 2, E KG nonischemic, troponin undetectable after multiple days Pulmonary embolism considered, as D-dimer was slightly elevated, CT angiogram was obtained which shows no significant findings Patient's symptoms improved over duration of stay with above-stated therapies. Findings and discharge diagnosis discussed with patient/family followed by verbalization of understanding Return precautions discussed with patient/family whom verbalize understanding. Discharge Plan Departure Patient Disposition: Home Clinical Impression: Atypical chest pain Instructions: DI for Atypical Chest Pain Activity Restrictions/Additional Instructions: *You have been diagnosed with [atypical chest pain. As we discussed her history and physical exam are very reassuring. EKG has no significant findings and labs are largely unremarkable except for a very minimally elevated D-dimer. As we discussed your CT scan shows no significant findings, most notably no evidence of blood clot or other significant finding *What to do: *Please continue to take your regular medications as directed. [ ] New medication prescriptions sent to your pharmacy: [ ] [ ] New medication written as a paper prescription [x ] No new medications given *Please follow up with your primary care provider in 2-3 days, call for an appointment. Let them know you were seen in the Emergency Department and that we ask that you be seen in follow up. We will electronically transmit a record of today's note if your PCP is in our system *If you do not have a primary care provider please contact the [facility] Resource line at [phone]. They will ask some questions about your medical history and help get you set up with a doctor in the community. *Return to Emergency Department if you should have any new, worsening or concerning symptoms, such as [fever greater than 101 F, shaking chills, wo rsening pain, persistent vomiting or other bothersome symptoms] Prescriptions: No Action gabapentin 600 mg tablet 600 mg PO TID PRN (Reason: Pain (Scale Score 1-3)) 0RF levothyroxine 50 mcg tablet 50 mcg PO DAILY 0RF venlafaxine 50 mg tablet 50 mg PO DAILY 0RF metformin 750 mg tablet extended release 24 hr 750 mg PO BID 0RF Referrals: Bailey Solano PA-C [Primary Care Provider] -
--- NOTE | 2021-12-27 18:35 | DI.CT.S_ITS ---
PROCEDURE: CT ANGIO CHEST PE PROTOCOL INDICATIONS: CP, SOB, tachycardia, elevated D Dimer TECHNIQUE: After the administration of intravenous contrast, 2 mm thick sections acquired from the pulmonary apices to the posterior costophrenic angles. 3-dimensional maximum intensity projection (MIP) coronal and sagittal reformats were then acquired through the thorax. For radiation dose reduction, the following was used: automated exposure control, adjustment of mA and/or kV according to patient size. COMPARISON: None. FINDINGS: Image quality: Excellent. Pulmonary arteries: Pulmonary arteries are normal in size, and demonstrate no intraluminal filling defects to suggest central pulmonary embolism. Lungs and pleura: Lungs are clear. No pleural effusions or pneumothorax. Central and peripheral airways are patent. Mediastinum: Heart size is normal, without pericardial effusion. No mediastinal or hilar adenopathy. Thoracic aorta is normal in caliber and enhancement. Esophagus is normal in caliber, without hiatal hernia. Bones and chest wall: No suspicious bony lesions. Ribs and thoracic spine appear intact throughout. Spine degenerative disc disease and facet arthropathy. Thyroid gland is limits where visualized. No axillary or supraclavicular adenopathy. Abdomen: Visualized upper abdominal solid organs appear normal in the early arterial phase of enhancement. IMPRESSION: 1. No pulmonary embolus. 2. No lung consolidation or pleural effusions. Dictated by: Deonna Morales MD, PhD on 12/27/2021 at 19:14 Approved by: Deonna Morales MD, PhD on 12/27/2021 at 19:17
[2021-12-27] MEDS: SODIUM CHLORIDE 0.9% 1,000 ML 1000 ML IV (19:11)
--- NOTE | 2021-12-27 19:14 | PC.NURSE ---
pt back from CT lying on stretcher aao x 3 waiting results of tests and disposition
== END 2021-12-27 20:23 | disposition home or self-care (01) ==
PROVIDERS: Emergency Medicine; Emergency Provider Emergency Medicine; PCP Physician Assistant
DX: R07.89 Other chest pain (principal); R06.02 Shortness of breath; R00.0 Tachycardia, unspecified
CPT/HCPCS: 36415; 71275; 80053; 85025; 85379; 93005; 93010; 99284

== ENCOUNTER → 2022-09-23 16:36 | Outpatient (CLI) | payer BC, SELFPAY ==
[2021-02-26 13:52] VITALS: BMI 26.1
--- NOTE | 2022-09-23 16:40 | DI.MG.S_ITS ---
BILATERAL DIGITAL SCREENING MAMMOGRAM 3D/2D WITH CAD: 09/23/2022 CLINICAL: Routine screening. Family history of breast cancer. Comparison is made to exams dated: 06/30/2019 mammogram - [facility], 01/21/2015 mammogram - [facility], and 11/07/2010 mammogram - [facility]. There are scattered areas of fibroglandular density in both breasts (category b / 25%-50% glandular tissue). Current study was also evaluated with a Computer Aided Detection (CAD) system. No significant masses, calcifications, or other findings are seen in either breast. There has been no significant interval change. IMPRESSION: NEGATIVE There is no mammographic evidence of malignancy. A 1 year screening mammogram is recommended. Based on the Tyrer Cuzick model (a risk assessment model) the patient's lifetime risk is 5.1% and her 10 year risk is 1.3%. According to the ACR, ACS, and NCCN guidelines, an annual breast MRI exam along with mammogram is recommended if the patient's lifetime risk is 20% or greater. This exam was interpreted at Station ID: [id number]. NOTE: For mammograms, a report in lay terms will be sent to the patient. Approximately 15% of breast malignancies will not be visualized mammographically. In the management of a palpable breast mass, a negative mammogram must not discourage biopsy of a clinically suspicious lesion. Electronically Signed By: Carl Montaño M.D. jr/:09/24/2022 14:46:37 letter sent: Normal Exam ACR BI-RADS Category 1: Negative [id number]
== END ==
PROVIDERS: PCP Physician Assistant; Referring Provider Physician Assistant; Visit Provider Physician Assistant
DX: Z12.31 Encounter for screening mammogram for malignant neoplasm of breast (principal); Z80.3 Family history of malignant neoplasm of breast
CPT/HCPCS: 77063; 77067

== ENCOUNTER 2022-11-23 09:37 | Day surgery (SDC) | payer BC, SELFPAY ==
[2021-02-26 13:52] VITALS: BMI 26.1
[2022-11-23 09:49] VITALS: BP 118/77; PULSE 85; RESP 18; TEMP 36.1; O2SAT 100; BMI 25.0
[2022-11-23] MEDS: LACTATED RINGERS 1,000 ML 100 ML IV (10:03)
--- NOTE | 2022-11-23 10:31 | P.HP_ITS ---
History of Present Illness History of Present Illness Date Patient Seen: 11/23/22 Time Patient Seen: 10:32 Chief complaint: Colonoscopy Narrative: Here for colon cancer screening. PENDING SALE TO [facility] Medical History Anxiety delivery delivered Depression Diabetes Hypothyroidism Neurogenic pain Surgical History H/O wrist surgery Social History household members: friend(s) Smoking Status: Former smoker alcohol intake: never Meds Home Medications and Allergies Home Medications Medication Instructions Recorded Confirmed Type gabapentin 600 mg tablet 600 mg PO TID PRN Pain (Scale 10/20/18 11/23/22 History Score 1-3) levothyroxine 50 mcg tablet 50 mcg PO DAILY 10/20/18 11/23/22 History metformin 750 mg tablet,extended 750 mg PO BID 10/20/18 11/23/22 History release 24 hr venlafaxine 50 mg tablet 50 mg PO DAILY 10/20/18 11/23/22 History Allergies Allergy/AdvReac Type Severity Reaction Status Date / Time Sulfa (Sulfonamide Allergy Intermediate HIVES Verified 02/26/21 13:18 Antibiotics) [SULFA (SULFONAMIDE ANTIBIOTICS)] aspirin [ASPIRIN] Allergy Unknown Verified 02/26/21 13:18 codeine [CODEINE] Allergy Unknown Verified 02/26/21 13:18 hydromorphone [From DILAUDID] Allergy Unknown VOMITING Verified 02/26/21 13:18 AND DIARRHEA Review of Systems Review of Systems ROS: Yes All systems reviewed with the patient and are negative except as otherwise documented Exam Vital Signs (past 8 hours): - 11/23/22 09:49 Temperature 97 F L Pulse Rate 85 Respiratory Rate 18 Blood Pressure 118/77 Pulse Oximetry 100 Oxygen Delivery Method Room Air Oxygen Delivery Method Room Air Const General: cooperative HENMT Head: normal to inspection Eyes General: appearance normal, both eyes and all related structures Neck Neck: normal visual inspection Chest Chest: normal inspection of the chest Resp Effort & Inspection: normal respiratory effort Cardio Rate: regular rate GI Inspection: normal to inspection Skin General: no rashes or lesions noted Neuro General: patient alert and patient awake Extrem General: normal to inspection and no pedal edema Psych Appearance: grossly normal Assessment & Plan Assessment & Plan narrative: 52-year-old female here for colon cancer screening. Colonoscopy is pursued today.
--- NOTE | 2022-11-23 10:32 | PM.PREOP ---
Pre-operative Note Interval Note History & Physical reviewed/Exam performed by Physician: Yes Changes to H&P: No ASA Class (for procedural sedation): II
--- NOTE | 2022-11-23 11:53 | PM.OP.COLON ---
Operative Date/Time/Diagnoses Date of procedure: 11/23/22 Time of procedure: 11:54 Pre-op diagnosis: Colon cancer screening Post-op diagnosis: same Procedure & Clinicians Study performed: Colonoscopy Same procedure as scheduled: Yes Indications: Colon cancer screening Surgeon: Jared Singh Procedure Notes SCOAP/Timeout: Done Procedure in detail: After the risks and benefits were explained, written and verbal informed consent was obtained. The patient was brought into the procedure room and placed into the left lateral decubitus position. Please see anesthesia notes for sedation details. Digital rectal examination was accomplished. The scope was introduced into the patient and advanced under direct visualization to the cecum as identified by the appendiceal orifice and ileocecal valve. The scope was slowly withdrawn to carefully examine the mucosa for any defects or lesions. Comprehensive imaging was accomplished throughout the rectum including the dentate line. The colon was decompressed, the scope was then removed from the patient who tolerated the procedure well. Pediatric colonoscope Bowel prep fair Scope withdrawal time: 8 minutes Sedation minutes: 17 Specimen(s): none sent Impression: Copious irrigation was required to render the mucosal exam adequate. There were a few areas where small polyps could have been overlooked as a result of residual fecal debris. Within the limitations of prep I did not appreciate any significant mucosal pathology. Grade 2 hemorrhoids were noted. Endoscopic diagnosis 1. Grade 2 hemorrhoids 2. Otherwise visually unremarkable colonoscopy Post-procedure Plan for aftercare: Repeat colonoscopy in 5 years considering the slightly suboptimal prep conditions today. Disposition: PACU
[2022-11-23 11:59] VITALS: BP 132/67; PULSE 78; RESP 16; TEMP 36.8; O2SAT 98
[2022-11-23 12:00] VITALS: BP 126/88; PULSE 77; RESP 23; O2SAT 100
[2022-11-23 12:10] VITALS: BP 136/82; PULSE 87; RESP 14; TEMP 36.4; O2SAT 100
== END 2022-11-23 12:25 | disposition home or self-care (01) ==
PROVIDERS: PCP Student in an Organized Health Care Education/Training Program; Referring Provider Internal Medicine Gastroenterology; Visit Provider Internal Medicine Gastroenterology
PROC: 0DJD8ZZ Inspection of Lower Intestinal Tract, Via Natural or Artificial Opening Endoscopic (ICD-10-PCS; CPT 45378; principal; 2022-11-23 15:00)
DX: Z12.11 Encounter for screening for malignant neoplasm of colon (principal); K64.1 Second degree hemorrhoids
CPT/HCPCS: 45378; 82962; J2704

== ENCOUNTER 2022-12-26 00:13 | Emergency (ER) | payer BC, SELFPAY ==
[2021-02-26 13:52] VITALS: BMI 26.1
[2022-12-26 00:22] VITALS: BP 152/72; PULSE 88; RESP 16; TEMP 36.3; O2SAT 98; BMI 25.2
--- NOTE | 2022-12-26 00:47 | ED.EXTPRO ---
HPI - Extremity Problem General Chief complaint: Extremity Problem,Nontraumatic Stated complaint: Diabetic, sore on right big toe Time Seen by Provider: 12/26/22 00:42 Source: patient Mode of arrival: Ambulatory History of Present Illness HPI Narrative: [age] old female. Not insulin-dependent diabetic who is here for evaluation of which she states is a sore on her right big toe. She noticed it just today. There is no redness. It is not painful. She wanted it looked at because of her history of diabetes. Related Data Home Medications Medication Instructions Recorded Confirmed gabapentin 600 mg tablet 600 mg PO TID PRN Pain (Scale 10/20/18 11/23/22 Score 1-3) levothyroxine 50 mcg tablet 50 mcg PO DAILY 10/20/18 11/23/22 metformin 750 mg tablet,extended 750 mg PO BID 10/20/18 11/23/22 release 24 hr venlafaxine 50 mg tablet 50 mg PO DAILY 10/20/18 11/23/22 Allergies Allergy/AdvReac Type Severity Reaction Status Date / Time Sulfa (Sulfonamide Allergy Intermediate HIVES Verified 02/26/21 13:18 Antibiotics) [SULFA (SULFONAMIDE ANTIBIOTICS)] aspirin [ASPIRIN] Allergy Unknown Verified 02/26/21 13:18 codeine [CODEINE] Allergy Unknown Verified 02/26/21 13:18 hydromorphone [From DILAUDID] Allergy Unknown VOMITING Verified 02/26/21 13:18 AND DIARRHEA Review of Systems Musculoskeletal Musculoskeletal: Reports system reviewed and no additional complaints, except as documented Integumentary/Breasts Skin/Breast: Reports system reviewed and no additional complaints, except as documented Neurologic Neurologic: Reports system reviewed and no additional complaints, except as documented Patient History Medical History Anxiety delivery delivered Depression Diabetes Hypothyroidism Neurogenic pain Surgical History H/O wrist surgery Social History household members: friend(s) Smoking Status: Former smoker alcohol intake: never Smoking Status: Former smoker alcohol intake frequency: holidays/special occasions only Substance Use Type: does not use Exam Initial Vital Signs Initial Vital Signs: Vital Signs Temperature 97.4 F L 12/26/22 00:22 Pulse Rate 88 12/26/22 00:22 Respiratory Rate 16 12/26/22 00:22 Blood Pressure 152/72 H 12/26/22 00:22 Pulse Oximetry 98 12/26/22 00:22 Oxygen Delivery Method Room Air 12/26/22 00:22 Skin Other: There is an area of callus on the volar aspect of the foot just to the base of the great toe. The there was no surrounding erythema there was a small have redness in the center of this. It is not tender to palpation. Extrem General: normal to inspection Course Vital Signs Vital signs: Vital Signs - 8 hr 12/26/22 00:22 Temperature 97.4 F L Pulse Rate 88 Respiratory Rate 16 Blood Pressure 152/72 H Pulse Oximetry 98 Oxygen Delivery Method Room Air MDM - Extremity (Nontraumatic) MDM Narrative Medical decision making narrative: Patient does have a small area of callus with a center area of redness at the base of her great toe. There is no surrounding erythema. No signs of infection. No signs of foreign body. Provided reassurance to the patient however did tell her that she does need to keep an on this area we discussed things she could do to offload some of the pressure on this point. She was given return precautions. She expressed understanding and agreement. Discharge Plan Departure Patient Disposition: Home Clinical Impression: Callus of foot Instructions: DI for Calluses and Corns Activity Restrictions/Additional Instructions: It is important that you pad the area stride unload any pressure that is put on that spot. Keep an eye on this sore and if you start to get more pain or redness return to the emergency department for further evaluation. Prescriptions: No Action gabapentin 600 mg tablet 600 mg PO TID PRN (Reason: Pain (Scale Score 1-3)) levothyroxine 50 mcg tablet 50 mcg PO DAILY venlafaxine 50 mg tablet 50 mg PO DAILY metformin 750 mg tablet extended release 24 hr 750 mg PO BID Referrals: Caitlyn Liz PA-C [Primary Care Provider] - Stand Alone Forms: Patient Portal/API
== END 2022-12-26 00:50 | disposition home or self-care (01) ==
PROVIDERS: Emergency Provider Emergency Medicine; PCP Student in an Organized Health Care Education/Training Program
DX: L84 Corns and callosities (principal)
CPT/HCPCS: 99281

== ENCOUNTER 2022-12-31 22:54 | Emergency (ER) | payer BC, SELFPAY ==
[2021-02-26 13:52] VITALS: BMI 26.1
[2022-12-31 22:59] VITALS: BP 144/75; PULSE 103; RESP 18; TEMP 36.4; O2SAT 98; BMI 24.2
--- NOTE | 2022-12-31 23:03 | DI.RAD.S_ITS ---
PROCEDURE: XR FINGER LT MIN 2V INDICATIONS: pain slammed in car door TECHNIQUE: AP hand, 2 views of the 3rd digit acquired. COMPARISON: None. FINDINGS: Bones: No fractures or dislocations. No suspicious bony lesions. Soft tissues: No suspicious soft tissue calcifications. IMPRESSION: 1. No fracture or dislocation. Dictated by: Renzo Acosta M.D. on 12/31/2022 at 23:53 Approved by: Renzo Acosta M.D. on 12/31/2022 at 23:56
[2023-01-01 01:49] VITALS: BP 133/71; PULSE 78; RESP 18; O2SAT 98
--- NOTE | 2023-01-01 01:54 | ED_ITS ---
HPI - Extremity Injury (Upper) General Chief Complaint: Extremity Injury, Upper Stated Complaint: lt hand injury Time Seen by Provider: 01/01/23 01:52 Source: patient Mode of arrival: Ambulatory Limitations: no limitations History of Present Illness HPI narrative: This is a 52-year-old female with history of diabetes, hypothyroidism, anxiety and neurogenic pain. Patient was moving trying to push a blanket back and when her daughter accidentally closed the door on her fingers of her left hand. Pain is mostly in the 3rd finger middle to distal portion. She has bruising. She is able to move it. No numbness or tingling. No weakness. Pain has been persistent. Patient denies any other injuries. States allergic to sulfa, aspirin, codeine and Dilaudid. Patient states she has not taken anything for pain this evening. She does normally take gabapentin. She is right-hand dominant. 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 Related Data Home Medications Medication Instructions Recorded Confirmed gabapentin 600 mg tablet 600 mg PO TID PRN Pain (Scale 10/20/18 11/23/22 Score 1-3) levothyroxine 50 mcg tablet 50 mcg PO DAILY 10/20/18 11/23/22 metformin 750 mg tablet,extended 750 mg PO BID 10/20/18 11/23/22 release 24 hr venlafaxine 50 mg tablet 50 mg PO DAILY 10/20/18 11/23/22 Allergies Allergy/AdvReac Type Severity Reaction Status Date / Time Sulfa (Sulfonamide Allergy Intermediate HIVES Verified 12/31/22 23:02 Antibiotics) [SULFA (SULFONAMIDE ANTIBIOTICS)] aspirin [ASPIRIN] Allergy Unknown Verified 12/31/22 23:02 codeine [CODEINE] Allergy Unknown Verified 12/31/22 23:02 hydromorphone [From DILAUDID] Allergy Unknown VOMITING Verified 12/31/22 23:02 AND DIARRHEA Review of Systems Review of Systems ROS Unobtainable: All systems reviewed & are unremarkable except as noted in HPI and below Patient History Medical History Anxiety delivery delivered Depression Diabetes Hypothyroidism Neurogenic pain Surgical History H/O wrist surgery Social History household members: friend(s) Smoking Status: Former smoker alcohol intake: never Smoking Status: Former smoker alcohol intake frequency: holidays/special occasions only Substance Use Type: does not use Exam Narrative Exam Narrative: GENERAL: Alert and oriented x three, HEENT: Head normocephalic, atraumatic, EOMI, pupils reactive, face symmetric, moist mucous membranes NECK: Supple, full range of motion EXTREMITIES: Normal range of motion, no clubbing. Neurovascularly intact. Cap refill less 2 seconds in all 5 fingers. Patient does have good range of motion. She has some ecchymosis over the 3rd finger middle inner phalangeal joint and just distal. No subungual hematoma. No bruising of the very distal portion. Patient has tender over the finger just distal to the middle joint. Normal sensation throughout. No other bony tenderness throughout the hand. NEUROLOGICAL: Cranial nerves II through XII grossly intact. Moving all extremities SKIN: Warm, dry, no petechiae, no rashes or lesions. Initial Vital Signs Initial Vital Signs: Vital Signs Temperature 97.6 F 12/31/22 22:59 Pulse Rate 103 H 12/31/22 22:59 Respiratory Rate 18 12/31/22 22:59 Blood Pressure 144/75 H 12/31/22 22:59 Pulse Oximetry 98 12/31/22 22:59 Oxygen Delivery Method Room Air 12/31/22 22:59 Course Orders Ordered: ED Orders 12/31/22 23:03 XR finger LT min 2V Stat Discontinued Medications Acetaminophen (Acetaminophen 325 Mg Tablet) 650 mg PO NOW ONE Stop: 01/01/23 02:04 Last Admin: 01/01/23 02:08 Dose: 650 mg Documented By: ESTELA Vital Signs Vital signs: Vital Signs - 8 hr 12/31/22 22:59 01/01/23 01:49 Temperature 97.6 F Pulse Rate 103 H 78 Respiratory Rate 18 18 Blood Pressure 144/75 H 133/71 Pulse Oximetry 98 98 Oxygen Delivery Method Room Air Room Air MDM - Extremity Injury (Upper) Imaging Data Extremity x-ray #1: Radiologist's Impression: [address] [address] XRay Report Signed Patient: Madelyn Alexis MR#: [id number] : 1970 Acct:[id number] Age/Sex: 52 / F Date of Service: 12/31/22 Loc: ED Accession Number: [id number] ?? Procedure: XR finger LT min 2V Ordering Provider: Shari Cano D.O. PROCEDURE:? XR FINGER LT MIN 2V ? INDICATIONS:? pain slammed in car door ? TECHNIQUE:? AP hand, 2 views of the 3rd digit acquired.? ? COMPARISON:? None. ? FINDINGS:? ? Bones:? No fractures or dislocations.? No suspicious bony lesions.? ? Soft tissues:? No suspicious soft tissue calcifications.? ? IMPRESSION:? ? 1. No fracture or dislocation. ? ? Dictated by: Renzo Acosta M.D. on 12/31/2022 at 23:53 ? ? Approved by: Renzo Acosta M.D. on 12/31/2022 at 23:56?? MDM Narrative Medical decision making narrative: This is a 52-year-old female with complaint of injury to her left 3rd finger after slimy her finger in a car door. No obvious fracture on exam. Patient has good range of motion she does have some contusion. Plan for timur tape/splint, RICE. Tylenol and/or ibuprofen as needed. Discharge Plan Departure Patient Disposition: Home Clinical Impression: Contusion of finger of left hand Instructions: DI for Finger Sprain Activity Restrictions/Additional Instructions: Follow-up for recheck and possibly repeat imaging in 7-10 days if your symptoms are not resolved. You can take Tylenol up to a 1000 mg every 6 hours as needed for pain and/or ibuprofen up to 600 mg every 6 hours needed for pain. Splint Care: Keep splint clean and dry. Elevated affected body part to decrease swelling. OK to use ice pack on the affected body part. Use for 15-20 minutes each time, for 5-6x per day. If you develop worsening pain, numbness, tingling, discoloration of the affected body part, loosen the splint by loosening the KATHY wrap, and either see your doctor for an urgent re-assessment, or return to the Emergency Department. Return to the Emergency Department for any new or worsening symptoms. Prescriptions: No Action gabapentin 600 mg tablet 600 mg PO TID PRN (Reason: Pain (Scale Score 1-3)) levothyroxine 50 mcg tablet 50 mcg PO DAILY venlafaxine 50 mg tablet 50 mg PO DAILY metformin 750 mg tablet extended release 24 hr 750 mg PO BID Referrals: Caitlyn Liz, PAKrystalC [Primary Care Provider] - Stand Alone Forms: Patient Portal/API, Work Release Note
[2023-01-01] MEDS: ACETAMINOPHEN 325 MG TABLET 650 MG PO (02:08)
== END 2023-01-01 02:13 | disposition home or self-care (01) ==
PROVIDERS: Emergency Provider Emergency Medicine; PCP Student in an Organized Health Care Education/Training Program
DX: S60.032A Contusion of left middle finger without damage to nail, initial encounter (principal); W23.0XXA Caught, crushed, jammed, or pinched between moving objects, initial encounter
CPT/HCPCS: 73140; 99283

== ENCOUNTER → 2023-01-14 13:07 | Outpatient (CLI) | payer BC, SELFPAY ==
[2021-02-26 13:52] VITALS: BMI 26.1
--- NOTE | 2023-01-14 13:08 | DI.RAD.S_ITS ---
PROCEDURE: XR FINGER LT MIN 2V INDICATIONS: Follow-up finger injury TECHNIQUE: AP hand, 2 views of the 3rd finger(s) acquired. COMPARISON: [facility], , XR FINGER LT MIN 2V, 12/31/2022, 23:25. FINDINGS: Bones: No fractures or dislocations. No suspicious bony lesions. Soft tissues: No suspicious soft tissue calcifications. IMPRESSION: No fracture or dislocation. If pain persist with conservative management, consider cross-sectional imaging such as CT or MRI. Dictated by: Demarco Reyes [facility] Interpreted: Adebayo Irizarry MD on 01/14/2023 at 13:37 Approved by: Adebayo Irizarry M.D. on 01/14/2023 at 16:12
== END ==
PROVIDERS: PCP Student in an Organized Health Care Education/Training Program; Referring Provider Nurse Practitioner Family; Visit Provider Nurse Practitioner Family
DX: S69.92XD Unspecified injury of left wrist, hand and finger(s), subsequent encounter (principal); X58.XXXD Exposure to other specified factors, subsequent encounter
CPT/HCPCS: 73140

== ENCOUNTER 2023-01-29 19:53 | Emergency (ER) | payer BC, SELFPAY ==
[2021-02-26 13:52] VITALS: BMI 26.1
[2023-01-29 20:03] VITALS: BP 157/82; PULSE 102; RESP 18; TEMP 36.6; O2SAT 98; BMI 24.2
--- NOTE | 2023-01-29 22:19 | ED.BACK ---
HPI - Back Pain/Injury General Chief Complaint: Back Pain/Injury Stated Complaint: Back pain Time Seen by Provider: 01/29/23 20:35 Source: patient Mode of arrival: Ambulatory Limitations: no limitations History of Present Illness HPI Narrative: Patient is a 52-year-old female who is here for evaluation of left lower back discomfort. She states that just over 24 hours ago she was bent over trying to pick her phone up off the ground. When she stood up she had a sudden onset of left-sided lower back discomfort. No urinary symptoms. No change in bowel habits. Not so much pain with palpation but definitely with movement. She did try some Tylenol and she was able to sleep afterwards. She does have some pain radiation down into her left buttock/upper leg. No fevers. Did not fall. No skin changes. Related Data Home Medications Medication Instructions Recorded Confirmed gabapentin 600 mg tablet 600 mg PO TID PRN Pain (Scale 10/20/18 11/23/22 Score 1-3) levothyroxine 50 mcg tablet 50 mcg PO DAILY 10/20/18 11/23/22 metformin 750 mg tablet,extended 750 mg PO BID 10/20/18 11/23/22 release 24 hr venlafaxine 50 mg tablet 50 mg PO DAILY 10/20/18 11/23/22 Previous Rx's Medication Instructions Recorded cyclobenzaprine 10 mg tablet 10 mg PO TID PRN muscle spasm #20 01/29/23 tabs meloxicam 7.5 mg tablet 7.5 mg PO DAILY #30 tabs 01/29/23 Allergies Allergy/AdvReac Type Severity Reaction Status Date / Time Sulfa (Sulfonamide Allergy Intermediate HIVES Verified 12/31/22 23:02 Antibiotics) [SULFA (SULFONAMIDE ANTIBIOTICS)] aspirin [ASPIRIN] Allergy Unknown Verified 12/31/22 23:02 codeine [CODEINE] Allergy Unknown Verified 12/31/22 23:02 hydromorphone [From DILAUDID] Allergy Unknown VOMITING Verified 12/31/22 23:02 AND DIARRHEA Review of Systems Constitutional Constitutional: Reports system reviewed and no additional complaints, except as documented Genitourinary Genitourinary: Reports system reviewed and no additional complaints, except as documented Musculoskeletal Musculoskeletal: Reports system reviewed and no additional complaints, except as documented Integumentary/Breasts Skin/Breast: Reports system reviewed and no additional complaints, except as documented Neurologic Neurologic: Reports system reviewed and no additional complaints, except as documented Hematologic/Lymphatic On Anticoagulants: No Patient History Medical History Anxiety delivery delivered Depression Diabetes Hypothyroidism Neurogenic pain Surgical History H/O wrist surgery Social History household members: friend(s) Smoking Status: Former smoker alcohol intake: never Smoking Status: Former smoker alcohol intake frequency: holidays/special occasions only Substance Use Type: does not use Exam Initial Vital Signs Initial Vital Signs: Vital Signs Temperature 98 F 01/29/23 20:03 Pulse Rate 102 H 01/29/23 20:03 Respiratory Rate 18 01/29/23 20:03 Blood Pressure 157/82 H 01/29/23 20:03 Pulse Oximetry 98 01/29/23 20:03 Oxygen Delivery Method Room Air 01/29/23 20:03 GI Inspection: normal to inspection Palpation: soft, No firm and No tender Back/Spine/Pelvis Cervical Spine: No cervical spinal tenderness Thoracic/Lumbar Spine: paraspinal tenderness (Left-sided paraspinal), No thoracic spinal tenderness and No lumbar spinal tenderness Neuro General: patient alert, patient awake and moves all extremities Extrem General: capillary refill normal Course Orders Ordered: Discontinued Medications Cyclobenzaprine HCl (Cyclobenzaprine 10 Mg Prepack) 1 bottle MISC SEEINSTR ONE Stop: 01/29/23 22:34 Last Admin: 01/29/23 22:40 Dose: 1 bottle Documented By: RUSSELL Ketorolac Tromethamine (Ketorolac 30 Mg/Ml Vial) 30 mg IM NOW ONE Stop: 01/29/23 22:34 Last Admin: 01/29/23 22:40 Dose: 30 mg Documented By: RUSSELL Vital Signs Vital signs: Vital Signs - 8 hr 01/29/23 20:03 01/29/23 22:49 Temperature 98 F Pulse Rate 102 H 96 H Respiratory Rate 18 18 Blood Pressure 157/82 H 157/80 H Pulse Oximetry 98 99 Oxygen Delivery Method Room Air Room Air MDM - Back Pain/Injury MDM Narrative Medical decision making narrative: This is most consistent with a muscular etiology. Low suspicion for trauma. No indication for x-rays. Low suspicion for cauda equina. She is no abdominal tenderness. Had a long discussion with her regarding this. Will place her on anti-inflammatories. She is taken Mobic in the past that has helped. Will also sent home with muscle relaxers. She was given return precautions follow-up instructions. She expressed understanding and agreement. Discharge Plan Departure Patient Disposition: Home Clinical Impression: Strain of lumbar region Instructions: DI for Low Back Pain Activity Restrictions/Additional Instructions: I do recommend that you take the medications as directed. Also recommend that you use ice/heat over your lower back. Light stretching as well. Contact your primary doctor for follow-up. Return to the emergency department for new or worsening symptoms. Prescriptions: New meloxicam 7.5 mg tablet 7.5 mg PO DAILY Qty: 30 0RF cyclobenzaprine 10 mg tablet 10 mg PO TID PRN (Reason: muscle spasm) Qty: 20 0RF No Action gabapentin 600 mg tablet 600 mg PO TID PRN (Reason: Pain (Scale Score 1-3)) levothyroxine 50 mcg tablet 50 mcg PO DAILY venlafaxine 50 mg tablet 50 mg PO DAILY metformin 750 mg tablet extended release 24 hr 750 mg PO BID Referrals: Caitlyn Liz, CATIA [Primary Care Provider] - Stand Alone Forms: Patient Portal/API, Work Release Note
[2023-01-29] MEDS: CYCLOBENZAPRINE 10 MG PREPACK 1 BOTTLE MISC (22:40)
[2023-01-29] MEDS: KETOROLAC 30 MG/ML VIAL IM (22:40)
--- NOTE | 2023-01-29 22:42 | PC.NURSE ---
30 mg IM Ketorolac given in left deltoid.
[2023-01-29 22:49] VITALS: BP 157/80; PULSE 96; RESP 18; O2SAT 99
== END 2023-01-29 22:52 | disposition home or self-care (01) ==
PROVIDERS: Emergency Provider Emergency Medicine; PCP Student in an Organized Health Care Education/Training Program
DX: S39.012A Strain of muscle, fascia and tendon of lower back, initial encounter (principal); X50.1XXA Overexertion from prolonged static or awkward postures, initial encounter
CPT/HCPCS: 96372; 99283; J1885

== ENCOUNTER 2023-07-01 22:21 | Emergency (ER) | payer BC, SELFPAY ==
[2021-02-26 13:52] VITALS: BMI 26.1
[2023-07-01 22:33] VITALS: BP 152/81; PULSE 100; RESP 16; TEMP 36.7; O2SAT 99; BMI 24.6
[2023-07-01 23:03] VITALS: PULSE 88; O2SAT 97
--- NOTE | 2023-07-01 23:09 | DI.US.S_ITS ---
PROCEDURE: US ABDOMEN LIMITED INDICATIONS: RUQ PAIN TECHNIQUE: Real-time focused scanning was performed of the abdomen, with image documentation. COMPARISON: [facility], CT, CT ABDOMEN PELVIS W CON, 02/26/2021, 9:50. FINDINGS: Liver is normal in size and diffusely increased in echogenicity. The gallbladder appears normal without gallstones or gallbladder wall thickening. There is no pericholecystic fluid. Sonographic Nettles sign is negative. The intrahepatic and extrahepatic bile ducts are within normal limits. Common hepatic duct measures 3.6 mm in diameter. Perigraft visualized portions of the pancreas are unremarkable. No free fluid is seen in the right upper quadrant. IMPRESSION: 1. Normal gallbladder. 2. Increased hepatic echogenicity is seen, most commonly secondary to diffuse hepatic steatosis but other sources of hepatocellular disease cannot be excluded. Recommend clinical correlation. Approved by: Ubaldo Reyna M.D. on 07/02/2023 at 0:27
--- NOTE | 2023-07-01 23:09 | ED_ITS ---
HPI - Abdominal Pain General Chief Complaint: Abdominal Pain Stated Complaint: RUQ pain Time Seen by Provider: 07/01/23 22:55 Source: patient Mode of arrival: Ambulatory History of Present Illness HPI narrative: 53-year-old female with history of eil-qllimcz-idcekdlih diabetes presents by private vehicle from home for right upper quadrant abdominal pain that abruptly worsened after eating dinner this evening. Patient states that she would had a primary care appointment earlier today for abdominal pain, however it resolved at the time of her appointment. After eating dinner tonight she noticed a sharp stabbing pain in her right upper quadrant that persisted, and so she decided to present to the emergency department for evaluation. Denies history of intra- abdominal surgery. Related Data Home Medications Medication Instructions Recorded Confirmed gabapentin 600 mg tablet 600 mg PO TID PRN Pain (Scale 10/20/18 11/23/22 Score 1-3) levothyroxine 50 mcg tablet 50 mcg PO DAILY 10/20/18 11/23/22 metformin 750 mg tablet,extended 750 mg PO BID 10/20/18 11/23/22 release 24 hr venlafaxine 50 mg tablet 50 mg PO DAILY 10/20/18 11/23/22 Previous Rx's Medication Instructions Recorded cyclobenzaprine 10 mg tablet 10 mg PO TID PRN muscle spasm #20 01/29/23 tabs meloxicam 7.5 mg tablet 7.5 mg PO DAILY #30 tabs 01/29/23 Allergies Allergy/AdvReac Type Severity Reaction Status Date / Time Sulfa (Sulfonamide Allergy Intermediate HIVES Verified 12/31/22 23:02 Antibiotics) [SULFA (SULFONAMIDE ANTIBIOTICS)] aspirin [ASPIRIN] Allergy Unknown Verified 12/31/22 23:02 codeine [CODEINE] Allergy Unknown Verified 12/31/22 23:02 hydromorphone [From DILAUDID] Allergy Unknown VOMITING Verified 12/31/22 23:02 AND DIARRHEA Review of Systems Review of Systems Narrative: Negative except as noted above Patient History Medical History delivery delivered Diabetes Neurogenic pain Hypothyroidism Anxiety Depression Surgical History H/O wrist surgery Social History household members: friend(s) Smoking Status: Former smoker alcohol intake: never Smoking Status: Former smoker alcohol intake frequency: holidays/special occasions only Substance Use Type: does not use Exam Initial Vital Signs Initial Vital Signs: Vital Signs Temperature 98.0 F 07/01/23 22:33 Pulse Rate 100 H 07/01/23 22:33 Respiratory Rate 16 07/01/23 22:33 Blood Pressure 152/81 H 07/01/23 22:33 Pulse Oximetry 99 07/01/23 22:33 Oxygen Delivery Method Room Air 07/01/23 22:33 Const: Awake, alert, no acute distress, nontoxic appearing Eyes: PERRL, EOMI, conjunctiva normal ENT: Atraumatic, dentition normal, mucous membranes moist Cardiac: regular rate, regular rhythm RESP: unlabored, clear bilaterally, no wheezing GI: Atraumatic, soft, right upper quadrant tenderness to deep palpation without rebound or guarding MSK: Atraumatic, full range of motion, pulses equal Skin: Warm, Dry, intact, no rashes Neuro: AO x3, CN II-XII grossly intact, moves all extremities Psych: affect normal, mood normal, not suicidal, not homicidal Course Course Course Narrative: Well-appearing patient with right upper quadrant pain. Vitals reviewed, unremarkable. Patient has no peritoneal signs, does not appear to be jaundiced or toxic. We will order labs and ultrasound imaging. Orders Ordered: ED Orders 07/01/23 22:44 EKG-12 Lead Stat 07/01/23 22:56 Complete Blood Count AUTO DIFF Stat Comprehensive Metabolic Panel Stat Lipase Stat 07/01/23 23:09 US abdomen limited Stat 07/02/23 00:02 Urine Microscopic Stat Discontinued Medications Sodium Chloride (Normal Saline 0.9%) 1,000 mls @ 1,000 mls/hr IV BOLUS ONE Stop: 07/02/23 00:07 Last Infusion: 07/02/23 00:24 Dose: Infused Documented By: Admin: 07/01/23 23:17 Dose: 1,000 mls/hr Documented By: GENESIS Morphine Sulfate (Morphine 4 Mg/Ml Inj) 4 mg IV NOW ONE Stop: 07/01/23 23:09 Last Admin: 07/01/23 23:17 Dose: 4 mg Documented By: GENESIS Ondansetron HCl (Ondansetron 4 Mg Odt) 4 mg PO NOW PRN PRN Reason: Nausea And Vomiting Ondansetron HCl (Ondansetron 4 Mg/2 Ml Inj) 4 mg IV NOW PRN PRN Reason: Nausea And Vomiting Ondansetron HCl (Ondansetron 4 Mg/2 Ml Inj) 4 mg IV NOW ONE Stop: 07/01/23 23:09 Last Admin: 07/01/23 23:17 Dose: 4 mg Documented By: GENESIS Reevaluation(s) Reevaluation #1: Laboratory work is reviewed. Patient's WBC count of 11.8, nonspecific, no increased neutrophil percentage. AST and ALT are very very mildly elevated from previous (39/52 today compared to 34/32 in 12/2021) total bilirubin 0.5. Ultrasound shows hepatic steatosis but normal gallbladder. Liver enzyme change could also be related to fatty liver changes, as patient does have diabetes and with a blood glucose of 250 she does not appear to be very well controlled at this time. Patient reassessed, resting comfortably in bed, pain controlled with medications. I explained all lab and imaging findings to the patient and her spouse at bedside. I recommended decreasing fatty food consumption to avoid potential exacerbation of gallbladder pain. She was counseled to follow up with the primary care physician and a referral to General surgery was provided if patient continues to have right upper quadrant pain. ED return precautions discussed at bedside. Patient expressed understanding of the plan and is in agreement at this time. All questions answered at the time of discharge. Vital Signs Vital signs: Vital Signs - 8 hr 07/01/23 22:33 07/01/23 23:03 07/01/23 23:24 Temperature 98.0 F Pulse Rate 100 H 88 91 H Respiratory Rate 16 Blood Pressure 152/81 H Pulse Oximetry 99 97 99 Oxygen Delivery Method Room Air Room Air Room Air 07/01/23 23:24 07/01/23 23:30 07/01/23 23:30 Temperature Pulse Rate 93 H Respiratory Rate Blood Pressure 176/92 H 167/84 H Pulse Oximetry 97 Oxygen Delivery Method Room Air 07/02/23 00:05 07/02/23 00:05 07/02/23 00:28 Temperature Pulse Rate 87 85 Respiratory Rate Blood Pressure 182/88 H Pulse Oximetry 99 99 Oxygen Delivery Method Room Air Room Air 07/02/23 00:28 07/02/23 00:30 07/02/23 00:30 Temperature Pulse Rate 83 Respiratory Rate Blood Pressure 178/79 H 150/65 H Pulse Oximetry 100 Oxygen Delivery Method Room Air MDM - Abdominal Pain Differential Diagnosis Differential diagnosis: Likely abdominal pain, gastroenteritis, pancreatitis and other (cholecytitis) Lab Data 07/01/23 22:56 07/01/23 22:56 Labs: Lab Results 07/01/23 07/02/23 Range/Units 22:56 00:02 WBC 11.8 H (4.5-11.0) X10^3/uL RBC 4.02 (4.0-5.2) X10^6/uL Hgb 12.6 (12.0-16.0) g/dL Hct 35.0 L (36-46) % MCV 87.1 (80-100) fL MCH 31.3 (26-34) PG MCHC 36.0 (30-36) % RDW 13.6 (11.6-14.8) % Plt Count 391 (150-400) X10^3/uL Neut % (Auto) 66.8 (50-75) % Lymph % (Auto) 21.4 L (25-40) % [place] % (Auto) 5.2 (3-14) % Eos % (Auto) 5.8 H (2-4) % Baso % (Auto) 0.8 (0-2) % Neut # (Auto) 7900 H (5093-3858) /uL Lymph # (Auto) 2500 (1046-2301) /uL [place] # (Auto) 600 (0-900) /uL Eos # (Auto) 700 H (0-450) /uL Baso # (Auto) 100 (0-100) /uL Sodium 136 L (137-145) mmol/L Potassium 4.4 (3.4-5.1) mmol/L Chloride 102 (98-107) mmol/L Carbon Dioxide 24 (22-32) mmol/L BUN 8 (7-17) mg/dL Creatinine 0.64 (0.52-1.04) mg/dL Estimated GFR > 60 (>60) mL/min BUN/Creatinine Ratio 12.5 (6-22) Glucose 247 H (70-100) mg/dL Calcium 9.2 (8.4-10.2) mg/dL Total Bilirubin 0.5 (0.2-1.3) mg/dL AST 39 H (14-36) IU/L ALT 52 H (<35) IU/L Alkaline Phosphatase 103 (38-126) U/L Total Protein 7.6 (6.3-8.2) g/dL Albumin 4.2 (3.5-5.0) g/dL Globulin 3.4 (1.7-4.1) g/dL Albumin/Globulin Ratio 1.2 (1.0-2.8) Lipase 136 (23-300) U/L Urine RBC None seen (0-5/HPF) Urine WBC 0-1/hpf (0-5/HPF) Ur Squamous Epith Cells 0-1 /hpf (0-5/HPF) Urine Bacteria Moderate (10-30) H (None) Ur Culture Indicated? Cult not indicated Point of care testing: Urine Dip Bedside Urine Glucose 1000 mg/dl Bedside Urine Bilirubin - Negative Bedside Urine Ketone - Negative Urine Specific [place] 1.020 Bedside Urine Occult Blood - Negative Bedside Urine pH 6.0 Bedside Urine Protein - Negative Bedside Urine Urobilinogen - Negative Bedside Urine Nitrite - Negative Bedside Urine Leukocytes - Negative Esterase Discharge Plan Departure Patient Disposition: Home Clinical Impression: Abdominal pain Qualifiers: Abdominal location: right upper quadrant Qualified Code(s): R10.11 - Right upper quadrant pain Instructions: DI for Abdominal Pain-Adult Prescriptions: No Action gabapentin 600 mg tablet 600 mg PO TID PRN (Reason: Pain (Scale Score 1-3)) levothyroxine 50 mcg tablet 50 mcg PO DAILY venlafaxine 50 mg tablet 50 mg PO DAILY metformin 750 mg tablet extended release 24 hr 750 mg PO BID meloxicam 7.5 mg tablet 7.5 mg PO DAILY Qty: 30 0RF cyclobenzaprine 10 mg tablet 10 mg PO TID PRN (Reason: muscle spasm) Qty: 20 0RF Referrals: Analy Shearer MD [Physician] - Caitlyn Liz PA-C [Primary Care Provider] - Stand Alone Forms: Patient Portal/API
[2023-07-01] MEDS: MORPHINE 4 MG/ML INJ IV (23:17)
[2023-07-01] MEDS: SODIUM CHLORIDE 0.9% 1,000 ML 1000 ML IV (23:17)
[2023-07-01] MEDS: ONDANSETRON 4 MG/2 ML INJ IV (23:17)
[2023-07-01 23:24] VITALS: BP 176/92; PULSE 91; O2SAT 99
[2023-07-01 23:30] VITALS: BP 167/84; PULSE 93; O2SAT 97
[2023-07-01 23:31] LABS: Add Manual Diff / Slide Review NO; Basophils Absolute Auto 100 /uL (0-100); Basophils Percent Auto 0.8 % (0-2); Eosinophils Absolute Auto 700 /uL (0-450); Eosinophils Percent Auto 5.8 % (2-4); Hemoglobin 12.6 g/dL (12.0-16.0); Lymphocytes Absolute Auto 2500 /uL (1100-4500); Lymphocytes Percent Auto 21.4 % (25-40); Mean Corpuscular Hemoglobin 31.3 PG (26-34); Mean Corpuscular Volume 87.1 fL (80-100); Monocytes Absolute Auto 600 /uL (0-900); Monocytes Percent Auto 5.2 % (3-14); Neutrophils Absolute Auto 7900 /uL (1500-7000); Neutrophils Percent Auto 66.8 % (50-75); Platelet Count 391 X10^3/uL (150-400); Red Blood Cell Count 4.02 X10^6/uL (4.0-5.2); Red Cell Distribution Width 13.6 % (11.6-14.8); White Blood Cell Count 11.8 X10^3/uL (4.5-11.0)
[2023-07-01 23:43] LABS: Alanine Aminotransferase 52 IU/L (<35); Albumin 4.2 g/dL (3.5-5.0); Albumin Globulin Ratio 1.2 (1.0-2.8); Alkaline Phosphatase 103 U/L (38-126); Aspartate Aminotransferase 39 IU/L (14-36); BUN Creatinine Ratio 12.5 (6-22); Bilirubin Total 0.5 mg/dL (0.2-1.3); Blood Urea Nitrogen 8 mg/dL (7-17); Calcium 9.2 mg/dL (8.4-10.2); Carbon Dioxide 24 mmol/L (22-32); Chloride 102 mmol/L (98-107); Estimated Glomerular Filt Rate > 60 mL/min (>60); Globulin 3.4 g/dL (1.7-4.1); Glucose 247 mg/dL (70-100); HEMOLYSIS 45 (0-50); Lipase 136 U/L (23-300); Potassium 4.4 mmol/L (3.4-5.1); Sodium 136 mmol/L (137-145); Total Protein 7.6 g/dL (6.3-8.2)
[2023-07-02 00:05] VITALS: BP 182/88; PULSE 87; O2SAT 99
[2023-07-02 00:28] VITALS: BP 178/79; PULSE 85; O2SAT 99
[2023-07-02 00:30] VITALS: BP 150/65; PULSE 83; O2SAT 100
[2023-07-02 00:33] LABS: Bacteria Urine Moderate (10-30); Culture Indicated Urine Cult Not Indicated; RBC Urine None Seen (0-5/HPF); Squamous Epithelial Cell Urine 0-1 /HPF (0-5/HPF); WBC Urine 0-1/HPF (0-5/HPF)
== END 2023-07-02 00:57 | disposition home or self-care (01) ==
PROVIDERS: Emergency Provider Emergency Medicine; PCP Student in an Organized Health Care Education/Training Program
DX: R10.11 Right upper quadrant pain (principal); E11.9 Type 2 diabetes mellitus without complications
CPT/HCPCS: 36415; 76705; 80053; 81003; 81015; 83690; 85025; 96361; 96374; 96375; 99284; J2270; J2405

== ENCOUNTER 2023-07-10 07:58 | Day surgery (SDC) | payer BC, SELFPAY ==
[2021-02-26 13:52] VITALS: BMI 26.1
--- NOTE | 2023-07-09 18:45 | PM.PREOP ---
Pre-operative Note Interval Note History & Physical reviewed/Exam performed by Physician: Yes Changes to H&P: No
[2023-07-10] VITALS (18 sets, daily range): BP systolic 78–150; BP diastolic 52–89; PULSE 79–100; RESP 12–18; TEMP 36.3–36.9; O2SAT 91–100; BMI 24.0
--- NOTE | 2023-07-10 | PATH_ITS ---
[facility] Accession Number: [id number] No. of containers..01 Tissue . 01 Material submitted: . gallbladder - GALLBLADDER . 01 Diagnosis: Gallbladder, Cholecystectomy: Gallbladder with mild chronic cholecystitis and cholesterolosis. MRV 07/21/2023 1348 Local . 01 Electronically signed: . Ely Bojorquez MD, Pathologist NPI- [id number] . 01 Gross description: . The specimen is received in formalin, labeled with the patient's name, , and gallbladder, and consists of an intact gallbladder measuring 6.5 x 3.2 x 1.6 cm with an unremarkable external surface. The cystic duct margin is inked blue. No pericystic lymph node is identified. The lumen is filled with green mucoid bile with no calculi identified in the lumen or the container. The mucosa is green and velvety with no yellow areas of discoloration, polyps, or lesions identified. The richard average 0.4 cm thick. Postal Delivery Officer sections to include the cystic duct margin and full-thickness sections are submitted in cassette A1. ([id number]) /FRR 07/14/2023 0433 Local . 01 Pathologist provided ICD-10: K82.8 . 01 CPT . 565090 Specimen Comment: A courtesy copy of this report has been sent to [phone] Performed at: 01 [facility] [address] [place] [address], [place], [place] [id number] MD Renzo Izaguirre MD Phone: [phone]
[2023-07-10] MEDS: LACTATED RINGERS 1,000 ML 21 ML IV (08:43)
--- NOTE | 2023-07-10 08:48 | SUR.PREOP ---
Pt taught incentive spirometry. Pt able to achieve 1600ml (goal is 1750ml for age and heights.
--- NOTE | 2023-07-10 08:51 | SUR.OPER ---
Supine on padded OR bed, head on pillow, arm secured on padded arm board at <90 degrees abduction, left arm tucked with gel pad. legs uncrossed, safety belt at thigh, tape over blanket over lower legs. heels resting against foot board
[2023-07-10] MEDS: CEFAZOLIN 2 GM/100 ML PREMIX 100 ML IV (09:40)
[2023-07-10] MEDS: BUPIVACAINE 0.25% (PF) VIAL 30 ML INJ (10:06)
--- NOTE | 2023-07-10 10:57 | PM.OP.1 ---
Operative Date/Time/Diagnoses Date of procedure: 07/10/23 Time of procedure: 10:57 Pre-op diagnosis: Chronic cholecystitis Post-op diagnosis: same Procedure & Clinicians Procedure: Laparoscopic cholecystectomy Same procedure as scheduled: Yes Indications: Symptoms and radiographic findings consistent with chronic cholecystitis Surgeon: Stef Campbell Anesthesia Type: General Operative Notes Findings: Chronic cholecystitis Specimen(s): other (Gallbladder) Estimated Blood Loss (mL): 30 Procedure in detail: The patient was placed supine on the table and bilateral lower extremity compression devices were applied. Anesthesia was induced they were intubated with an endotracheal tube and received 2g of Ancef. A time-out was performed. They were prepped and draped in sterile fashion. An infraumbilical incision was made. The fascia was elevated incised and the abdomen was entered atraumatically. A blunt tip 12mm balloon trocar was then inserted, pneumoperitoneum was established and inspection of the abdomen demonstrated no evidence of injury. They were placed head up and right side up and then a 11 mm port was placed high in the epigastrium and two 5mm in the right upper quadrant. The gallbladder was surrounded adhesed omentum consistent with chronic cholecystitis. The omentum was bluntly dissected off of the gallbladder. The gallbladder was grasped by the fundus and retracted over the liver and retracted laterally by the infundibulum. Using electrocautery the lateral plane between the gallbladder and the liver was opened towards the fundus. The gallbladder was then retracted laterally and the medial plane was developed in the same manner. With the gallbladder mobilized the bottom of the cystic plate was visualized. The hepatocystic triangle was meticulosly skeletonized with blunt dissection of fat and fibrous tissue from both the front and the back. Only two structures were then clearly seen entering the gallbladder the cystic duct and the cystic artery. With the critical view of safety fully established the cystic duct was clipped twice proximally and once distally using the 10 mm Weck hemoclip applied under direct visualization and then sharply divided. The cystic artery was divided in the same fashion. The gallbladder was removed from the liver bed using electro cautery. The liver bed was then inspected for hemostasis and this was achieved. The abdomen was irrigated with sterile saline and inspection was made that showed the clips in good position. The specimen was removed using Endo-Catch. The abdomen was desufflated. The umbilical fascia was closed with 0 Vicryl in a [id number] fashion under direct visualization. Skin incisions were irrigated and closed with 4-0 Monocryl. 30 ml of 0.25% bupivacaine was infiltrated into the subcutaneous tissue of the incisions. The wounds were sealed with Dermabond. Patient emerged from anesthesia was extubated and transferred to recovery in stable condition. The sponge and instrument count at the end of the operation was correct. Complications: none Post-operative Condition: stable Disposition: same day surgery
--- NOTE | 2023-07-10 11:00 | SUR.PHASEI ---
1053 - Received to PACU after general anesthesia. Airway patent, self maintained. Report from FIDEL Oropeza and Dr Hernandez.
[2023-07-10] MEDS: fentaNYL 100 MCG/2 ML INJ IV ×2 (11:10→11:19)
[2023-07-10] MEDS: HYDROCODONE/ACET 5/325 TABLET 1 TAB PO ×2 (11:13→11:45)
[2023-07-10] MEDS: ONDANSETRON 4 MG/2 ML INJ IV (11:15)
[2023-07-10] MEDS: LACTATED RINGERS 1,000 ML 42 ML IV (11:23)
--- NOTE | 2023-07-10 13:14 | SUR.PHASEII ---
1310 - Pt able to walk to wheelchair without dizziness, lightheadedness, or nausea. BP after 78/53. Dr Hernandez updated on status. Will give ephedrine as ordered.
[2023-07-10] MEDS: ePHEDrine 50 MG/ML VIAL IM (13:20)
--- NOTE | 2023-07-10 14:18 | SUR.PHASEII ---
1410 - Dr Hernandez assessed pt. SBP remains 80's despite ephedrine. Pt asymptomatic. Decision to discharge pt. Instructed pt and friend to have assistance whenever she stands.
== END 2023-07-10 14:16 | disposition home or self-care (01) ==
PROVIDERS: PCP Student in an Organized Health Care Education/Training Program; Referring Provider Surgery; Visit Provider Surgery
PROC: 0FT44ZZ Resection of Gallbladder, Percutaneous Endoscopic Approach (ICD-10-PCS; CPT 47562; principal; 2023-07-10 10:00)
CPT/HCPCS: 82962; J0690; J1100; J1885; J2250; J2405; J2704; J3010; J3490

== ENCOUNTER 2023-07-11 00:53 | Inpatient (IN) | payer BC, SELFPAY ==
[2021-02-26 13:52] VITALS: BMI 26.1
[2023-07-11] VITALS (48 sets, daily range): BP systolic 100–171; BP diastolic 54–95; PULSE 64–125; RESP 14–25; TEMP 36.1–36.9; O2SAT 56–100; BMI 24.2
--- NOTE | 2023-07-11 01:09 | ED.GENADULT ---
HPI - General Adult <Zelda Parikh MD - Last Filed: 07/12/23 04:09> General Chief complaint: Abdominal Pain Stated complaint: extreme pain abd post surgery Time Seen by Provider: 07/11/23 01:02 History of Present Illness HPI narrative: 53-year-old woman with a history of hypothyroidism who underwent elective laparoscopic cholecystectomy this morning presents with severe postoperative pain. She states that she apparently had difficulties with hypertension intraoperatively and then her postoperative recovery was complicated by hypotension. She was discharged from the hospital approximately 10 hours ago. On the way home she had increasing pain in the noticed that going over the speed bumps into their housing development caused severe pain. Once home she is taken Tylenol, meloxicam, gabapentin and tramadol and finds that her pain continues to escalate to the point that she is unable to tolerate an returns to the ER requesting help. She has not vomited and would very much like to avoid that if possible. She has voided but no bowel movement. She describes pain as upper abdominal a bandlike distribution. No fevers, cough chest pain or palpitations. Related Data Home Medications Medication Instructions Recorded Confirmed gabapentin 600 mg tablet 600 mg PO TID PRN Pain (Scale 10/20/18 07/12/23 Score 1-3) levothyroxine 50 mcg tablet 50 mcg PO DAILY 10/20/18 07/12/23 metformin 750 mg tablet,extended 750 mg PO BID 10/20/18 07/12/23 release 24 hr cinnamon bark PO BID 07/09/23 07/09/23 coenzyme Q10 10 mg capsule 10 mg PO ONCE 07/09/23 07/12/23 red yeast rice 600 mg tablet 600 mg PO DAILY 07/09/23 07/12/23 gemfibrozil 600 mg tablet 600 mg PO BID 07/10/23 07/12/23 meloxicam 7.5 mg tablet 7.5 mg PO DAILY 07/10/23 07/12/23 venlafaxine 150 mg 150 mg PO DAILY 07/10/23 07/12/23 capsule,extended release 24 hr Previous Rx's Medication Instructions Recorded acetaminophen 325 mg capsule 650 mg (2 x 325 mg) PO QID PRN 07/10/23 (Tylenol) pain #60 caps ibuprofen 200 mg tablet 400 mg (2 x 200 mg) PO Q6H #60 tabs 07/10/23 tramadol 50 mg tablet 50 mg PO Q6H PRN pain #15 tabs 07/10/23 Allergies Allergy/AdvReac Type Severity Reaction Status Date / Time hydromorphone [From Dilaudid] AdvReac Severe Nausea Verified 07/10/23 08:18 Sulfa (Sulfonamide AdvReac Severe Vomiting Verified 07/10/23 08:17 Antibiotics) codeine AdvReac Intermediate Nausea Verified 07/10/23 08:17 Review of Systems <Zelda Parikh MD - Last Filed: 07/12/23 04:09> Review of Systems Narrative: Pertinent positive and negative findings as per HPI Patient History <Zelda Parikh MD - Last Filed: 07/12/23 04:09> Medical History Celiac disease Fibromyalgia delivery delivered Diabetes Neurogenic pain Hypothyroidism Anxiety Depression Surgical History H/O section H/O wrist surgery Family History Father Hypertension Diabetes mellitus Heart disease Mother Heart disease Grandmother Stroke Grandfather Heart disease Social History marital status: unmarried,single details: Lives with adult daughter and 3 other roomates. household members: friend(s) lives independently: Yes occupational status: employed Smoking Status: Never smoker alcohol intake: current substance use type: does not use Smoking Status: Never smoker alcohol intake frequency: holidays/special occasions only Substance Use Type: does not use Exam <Zelda Parikh MD - Last Filed: 07/12/23 04:09> Narrative Exam Narrative: General: Somewhat pale, in no acute distress. Able to give a complete and coherent history. Well-nourished well-developed HEENT: Dry mucous membranes, normal sclera with reactive pupils, Respiratory: Lungs are clear to auscultation, no wheezing no rales no rhonchi. Full and symmetrical air movement Cardiac: Regular rate and rhythm no murmurs no bruits Abdomen: Tender in the upper abdomen, slight distention, bruising as would be expected 10 hours postoperatively over the abdominal wall and your trocar sites with no redness or concerns for infection. Skin: Warm and dry, no rashes Neurologic: Grossly neurologically intact with no obvious asymmetries or abnormalities Extremities: No trauma, well perfused Psych: Cooperative, appropriate insight and affect Initial Vital Signs Initial Vital Signs: Vital Signs Temperature 98.0 F 07/11/23 00:55 Pulse Rate 103 H 07/11/23 00:55 Respiratory Rate 18 07/11/23 00:55 Blood Pressure 148/69 H 07/11/23 00:55 Pulse Oximetry 100 07/11/23 00:55 Oxygen Delivery Method Room Air 07/11/23 00:55 <Noemi Miller DO - Last Filed: 07/11/23 09:29> Initial Vital Signs Initial Vital Signs: Vital Signs Temperature 98.0 F 07/11/23 00:55 Pulse Rate 103 H 07/11/23 00:55 Respiratory Rate 18 07/11/23 00:55 Blood Pressure 148/69 H 07/11/23 00:55 Pulse Oximetry 100 07/11/23 00:55 Oxygen Delivery Method Room Air 07/11/23 00:55 Course <Zelda Parikh MD - Last Filed: 07/12/23 04:09> Orders Ordered: Acetaminophen (Acetaminophen 325 Mg Tablet) 650 mg PO Q6H PRN PRN Reason: Fever/Mild Pain (1-3) Last Admin: 07/12/23 00:39 Dose: 650 mg Documented By: AT Gabapentin (Gabapentin 600 Mg Tablet) 600 mg PO TID PRN PRN Reason: Pain (Scale Score 1-3) Last Admin: 07/11/23 19:28 Dose: 600 mg Documented By: AT Dextrose (D10w) 100 mls @ 1,200 mls/hr IV PRN PRN PRN Reason: Hypoglycemia Insulin Human Lispro (Insulin Lispro 100 Unit/Ml 3ml Vial) 0 unit SUBCUT Q6H [facility]; Protocol Last Admin: 07/11/23 22:58 Dose: Not Given Documented By: Admin: 07/11/23 18:23 Dose: 3 unit Documented By: CLL Co-signed By: TLS Levothyroxine Sodium (Levothyroxine 50 Mcg Tablet) 50 mcg PO 0600 [facility] Oxycodone HCl (Oxycodone Ir 5 Mg Tablet) 5 mg PO Q3HR PRN PRN Reason: Pain, Moderate (4-6) Last Admin: 07/12/23 02:27 Dose: 5 mg Documented By: Admin: 07/11/23 22:53 Dose: 5 mg Documented By: AT Venlafaxine HCl (Venlafaxine Er 75 Mg Cap) 150 mg PO DAILY [facility] Discontinued Medications Acetaminophen (Acetaminophen 325 Mg Tablet) 650 mg PO Q6H PRN PRN Reason: Fever/Mild Pain (1-3) Hydrocodone Bitart/Acetaminophen (Hydrocodone/Acet 5/325 Tablet) 1 tab PO PACUNOW PRN PRN Reason: Mild or moderate pain Bupivacaine HCl (Bupivacaine 0.25% (Pf) Vial) 30 ml INJ NOW ONE Stop: 07/11/23 10:23 Last Admin: 07/11/23 10:23 Dose: 30 ml Documented By: ELKIN Fentanyl (Fentanyl 100 Mcg/2 Ml Inj) 0 mcg IV Q5M PRN PRN Reason: Pain, Moderate (4-6) Furosemide (Furosemide 20 Mg/2 Ml Vial) 10 mg IV NOW ONE Stop: 07/11/23 12:11 Last Admin: 07/11/23 12:19 Dose: 10 mg Documented By: KIMBERLY Furosemide (Furosemide 20 Mg/2 Ml Vial) 10 mg IV NOW ONE Stop: 07/11/23 17:01 Last Admin: 07/11/23 17:15 Dose: 10 mg Documented By: DEEP Hydromorphone HCl (Hydromorphone 0.5 Mg Inj) 0.5 mg IV Q2H PRN PRN Reason: Pain, Severe (7-10) Hydromorphone HCl (Hydromorphone 1 Mg Inj) 0 mg IV Q5MIN PRN PRN Reason: Pain, Severe (7-10) Sodium Chloride (Normal Saline 0.9%) 1,000 mls @ 1,000 mls/hr IV BOLUS ONE Stop: 07/11/23 02:26 Last Infusion: 07/11/23 02:35 Dose: Infused Documented By: Admin: 07/11/23 01:48 Dose: 1,000 mls/hr Documented By: RUSSELL Tranexamic Acid 1,000 mg/ (Sodium Chloride) 100 mls @ 200 mls/hr IV INTRA-OP ONE Stop: 07/11/23 03:42 Last Infusion: 07/11/23 04:00 Dose: Infused Documented By: Admin: 07/11/23 03:23 Dose: 200 mls/hr Documented By: RUSSELL Sodium Chloride (Normal Saline 0.9%) 1,000 mls @ 150 mls/hr IV CONT LUISA Last Infusion: 07/11/23 07:50 Dose: 0 mls/hr Documented By: Admin: 07/11/23 04:10 Dose: 150 mls/hr Documented By: SB Lactated Ringer's (Lactated Ringers) 1,000 mls @ 42 mls/hr IV CONT LUISA Last Admin: 07/11/23 10:35 Dose: 42 mls/hr Documented By: Cefazolin Sodium/Dextrose (Ancef) 100 mls @ 200 mls/hr IV NOW ONE Stop: 07/11/23 10:52 Last Infusion: 07/11/23 09:45 Dose: Infused Documented By: Admin: 07/11/23 09:40 Dose: 200 mls/hr Documented By: Dextrose (D10w) 100 mls @ 1,200 mls/hr IV PRN PRN PRN Reason: Hypoglycemia Insulin Human Lispro (Insulin Lispro 100 Unit/Ml 3ml Vial) 0 unit SUBCUT Q6H [facility]; Protocol Last Admin: 07/11/23 14:54 Dose: Not Given Documented By: DEEP Insulin Human Regular (Insulin Regular 100 Unit/Ml 3 Ml Vial) 3 unit SUBCUT NOW ONE Stop: 07/11/23 13:18 Last Admin: 07/11/23 13:24 Dose: 3 unit Documented By: KIMBERLY Co-signed By: JOURDAN Morphine Sulfate (Morphine 4 Mg/Ml Inj) 4 mg IV NOW ONE Stop: 07/11/23 01:28 Last Admin: 07/11/23 01:48 Dose: 4 mg Documented By: RUSSELL Morphine Sulfate (Morphine 2 Mg/Ml Inj) 2 mg IV Q2HR PRN PRN Reason: pain Last Admin: 07/11/23 05:21 Dose: 2 mg Documented By: Admin: 07/11/23 03:26 Dose: 2 mg Documented By: RUSSELL Morphine Sulfate (Morphine 2 Mg/Ml Inj) 2 mg IV NOW ONE Stop: 07/11/23 07:52 Last Admin: 07/11/23 07:56 Dose: 2 mg Documented By: MPO Naloxone HCl (Naloxone 0.4 Mg/Ml Vial) 0.2 mg IV Q2MIN PRN PRN Reason: Opiate Reversal Ondansetron HCl (Ondansetron 4 Mg/2 Ml Inj) 4 mg IV NOW ONE Stop: 07/11/23 01:28 Last Admin: 07/11/23 01:48 Dose: 4 mg Documented By: RUSSELL Ondansetron HCl (Ondansetron 4 Mg/2 Ml Inj) 4 mg IV NOW PRN PRN Reason: Nausea And Vomiting Oxycodone HCl (Oxycodone Ir 5 Mg Tablet) 5 mg PO Q3H PRN PRN Reason: Pain, Moderate (4-6) Last Admin: 07/11/23 12:59 Dose: 5 mg Documented By: KIMBERLY Oxycodone/Acetaminophen (Oxycodone/Acetaminophen 5/325 Tablet) 2 tab PO NOW ONE Stop: 07/11/23 01:28 Last Admin: 07/11/23 02:41 Dose: 2 tab Documented By: RUSSELL Oxycodone/Acetaminophen (Oxycodone/Apap 5/325 Prepack) 1 bottle MISC DIRECTED ONE Stop: 07/11/23 01:28 Last Admin: 07/11/23 03:52 Dose: Not Given Documented By: RUSSELL Vital Signs Vital signs: Vital Signs - 8 hr 07/11/23 01:30 07/11/23 02:00 07/11/23 02:30 Pulse Rate 103 H 103 H 103 H Blood Pressure Pulse Oximetry 97 99 98 07/11/23 02:35 07/11/23 02:35 07/11/23 02:47 Pulse Rate 102 H Blood Pressure 143/74 H 171/84 H Pulse Oximetry 97 07/11/23 02:47 07/11/23 03:00 07/11/23 03:00 Pulse Rate 98 H 102 H Blood Pressure 154/81 H Pulse Oximetry 100 96 <Noemi Miller, - Last Filed: 07/11/23 09:29> Orders Ordered: Acetaminophen (Acetaminophen 325 Mg Tablet) 650 mg PO Q6H PRN PRN Reason: Fever/Mild Pain (1-3) Last Admin: 07/12/23 00:39 Dose: 650 mg Documented By: AT Gabapentin (Gabapentin 600 Mg Tablet) 600 mg PO TID PRN PRN Reason: Pain (Scale Score 1-3) Last Admin: 07/11/23 19:28 Dose: 600 mg Documented By: AT Dextrose (D10w) 100 mls @ 1,200 mls/hr IV PRN PRN PRN Reason: Hypoglycemia Insulin Human Lispro (Insulin Lispro 100 Unit/Ml 3ml Vial) 0 unit SUBCUT Q6H [facility]; Protocol Last Admin: 07/11/23 22:58 Dose: Not Given Documented By: Admin: 07/11/23 18:23 Dose: 3 unit Documented By: DEEP Co-signed By: TLS Levothyroxine Sodium (Levothyroxine 50 Mcg Tablet) 50 mcg PO 0600 LUISA Oxycodone HCl (Oxycodone Ir 5 Mg Tablet) 5 mg PO Q3HR PRN PRN Reason: Pain, Moderate (4-6) Last Admin: 07/12/23 02:27 Dose: 5 mg Documented By: Admin: 07/11/23 22:53 Dose: 5 mg Documented By: AT Venlafaxine HCl (Venlafaxine Er 75 Mg Cap) 150 mg PO DAILY [facility] Discontinued Medications Acetaminophen (Acetaminophen 325 Mg Tablet) 650 mg PO Q6H PRN PRN Reason: Fever/Mild Pain (1-3) Hydrocodone Bitart/Acetaminophen (Hydrocodone/Acet 5/325 Tablet) 1 tab PO PACUNOW PRN PRN Reason: Mild or moderate pain Bupivacaine HCl (Bupivacaine 0.25% (Pf) Vial) 30 ml INJ NOW ONE Stop: 07/11/23 10:23 Last Admin: 07/11/23 10:23 Dose: 30 ml Documented By: ELKIN Fentanyl (Fentanyl 100 Mcg/2 Ml Inj) 0 mcg IV Q5M PRN PRN Reason: Pain, Moderate (4-6) Furosemide (Furosemide 20 Mg/2 Ml Vial) 10 mg IV NOW ONE Stop: 07/11/23 12:11 Last Admin: 07/11/23 12:19 Dose: 10 mg Documented By: KIMBERLY Furosemide (Furosemide 20 Mg/2 Ml Vial) 10 mg IV NOW ONE Stop: 07/11/23 17:01 Last Admin: 07/11/23 17:15 Dose: 10 mg Documented By: DEEP Hydromorphone HCl (Hydromorphone 0.5 Mg Inj) 0.5 mg IV Q2H PRN PRN Reason: Pain, Severe (7-10) Hydromorphone HCl (Hydromorphone 1 Mg Inj) 0 mg IV Q5MIN PRN PRN Reason: Pain, Severe (7-10) Sodium Chloride (Normal Saline 0.9%) 1,000 mls @ 1,000 mls/hr IV BOLUS ONE Stop: 07/11/23 02:26 Last Infusion: 07/11/23 02:35 Dose: Infused Documented By: Admin: 07/11/23 01:48 Dose: 1,000 mls/hr Documented By: SB Tranexamic Acid 1,000 mg/ (Sodium Chloride) 100 mls @ 200 mls/hr IV INTRA-OP ONE Stop: 07/11/23 03:42 Last Infusion: 07/11/23 04:00 Dose: Infused Documented By: Admin: 07/11/23 03:23 Dose: 200 mls/hr Documented By: SB Sodium Chloride (Normal Saline 0.9%) 1,000 mls @ 150 mls/hr IV CONT LUISA Last Infusion: 07/11/23 07:50 Dose: 0 mls/hr Documented By: Admin: 07/11/23 04:10 Dose: 150 mls/hr Documented By: SB Lactated Ringer's (Lactated Ringers) 1,000 mls @ 42 mls/hr IV CONT LUISA Last Admin: 07/11/23 10:35 Dose: 42 mls/hr Documented By: AB Cefazolin Sodium/Dextrose (Ancef) 100 mls @ 200 mls/hr IV NOW ONE Stop: 07/11/23 10:52 Last Infusion: 07/11/23 09:45 Dose: Infused Documented By: Admin: 07/11/23 09:40 Dose: 200 mls/hr Documented By: AB Dextrose (D10w) 100 mls @ 1,200 mls/hr IV PRN PRN PRN Reason: Hypoglycemia Insulin Human Lispro (Insulin Lispro 100 Unit/Ml 3ml Vial) 0 unit SUBCUT Q6H [facility]; Protocol Last Admin: 07/11/23 14:54 Dose: Not Given Documented By: DEEP Insulin Human Regular (Insulin Regular 100 Unit/Ml 3 Ml Vial) 3 unit SUBCUT NOW ONE Stop: 07/11/23 13:18 Last Admin: 07/11/23 13:24 Dose: 3 unit Documented By: KIMBERLY Co-signed By: JOURDAN Morphine Sulfate (Morphine 4 Mg/Ml Inj) 4 mg IV NOW ONE Stop: 07/11/23 01:28 Last Admin: 07/11/23 01:48 Dose: 4 mg Documented By: RUSSELL Morphine Sulfate (Morphine 2 Mg/Ml Inj) 2 mg IV Q2HR PRN PRN Reason: pain Last Admin: 07/11/23 05:21 Dose: 2 mg Documented By: Admin: 07/11/23 03:26 Dose: 2 mg Documented By: RUSSELL Morphine Sulfate (Morphine 2 Mg/Ml Inj) 2 mg IV NOW ONE Stop: 07/11/23 07:52 Last Admin: 07/11/23 07:56 Dose: 2 mg Documented By: CHRIS Naloxone HCl (Naloxone 0.4 Mg/Ml Vial) 0.2 mg IV Q2MIN PRN PRN Reason: Opiate Reversal Ondansetron HCl (Ondansetron 4 Mg/2 Ml Inj) 4 mg IV NOW ONE Stop: 07/11/23 01:28 Last Admin: 07/11/23 01:48 Dose: 4 mg Documented By: RUSSELL Ondansetron HCl (Ondansetron 4 Mg/2 Ml Inj) 4 mg IV NOW PRN PRN Reason: Nausea And Vomiting Oxycodone HCl (Oxycodone Ir 5 Mg Tablet) 5 mg PO Q3H PRN PRN Reason: Pain, Moderate (4-6) Last Admin: 07/11/23 12:59 Dose: 5 mg Documented By: KIMBERLY Oxycodone/Acetaminophen (Oxycodone/Acetaminophen 5/325 Tablet) 2 tab PO NOW ONE Stop: 07/11/23 01:28 Last Admin: 07/11/23 02:41 Dose: 2 tab Documented By: RUSSELL Oxycodone/Acetaminophen (Oxycodone/Apap 5/325 Prepack) 1 bottle MISC DIRECTED ONE Stop: 07/11/23 01:28 Last Admin: 07/11/23 03:52 Dose: Not Given Documented By: RUSSELL Vital Signs Vital signs: Vital Signs - 8 hr 07/11/23 01:30 07/11/23 02:00 07/11/23 02:30 Pulse Rate 103 H 103 H 103 H Blood Pressure Pulse Oximetry 97 99 98 07/11/23 02:35 07/11/23 02:35 07/11/23 02:47 Pulse Rate 102 H Blood Pressure 143/74 H 171/84 H Pulse Oximetry 97 07/11/23 02:47 07/11/23 03:00 07/11/23 03:00 Pulse Rate 98 H 102 H Blood Pressure 154/81 H Pulse Oximetry 100 96 Medical Decision Making <Zelda Parikh MD - Last Filed: 07/12/23 04:09> Lab Data 07/11/23 06:06 07/11/23 06:06 Labs: Lab Results 07/11/23 Range/Units 01:38 WBC 16.2 H (4.5-11.0) X10^3/uL RBC 2.63 L (4.0-5.2) X10^6/uL Hgb 7.8 L (12.0-16.0) g/dL Hct 23.6 L (36-46) % MCV 89.4 (80-100) fL MCH 29.7 (26-34) PG MCHC 33.2 (30-36) % RDW 13.8 (11.6-14.8) % Plt Count 368 (150-400) X10^3/uL Neut % (Auto) 86.0 H (50-75) % Lymph % (Auto) 8.3 L (25-40) % [place] % (Auto) 5.7 (3-14) % Eos % (Auto) 0.0 L (2-4) % Baso % (Auto) 0.0 (0-2) % Neut # (Auto) 20328 H (7315-2361) /uL Lymph # (Auto) 1300 (1799-1452) /uL [place] # (Auto) 900 (0-900) /uL Eos # (Auto) 0 (0-450) /uL Baso # (Auto) 0 (0-100) /uL Sodium 128 L (137-145) mmol/L Potassium 5.2 H (3.4-5.1) mmol/L Chloride 95 L (98-107) mmol/L Carbon Dioxide 20 L (22-32) mmol/L BUN 16 (7-17) mg/dL Creatinine 0.73 (0.52-1.04) mg/dL Estimated GFR > 60 (>60) mL/min BUN/Creatinine Ratio 21.9 (6-22) Glucose 252 H (70-100) mg/dL Calcium 9.4 (8.4-10.2) mg/dL Total Bilirubin 0.4 (0.2-1.3) mg/dL AST 56 H (14-36) IU/L ALT 54 H (<35) IU/L Alkaline Phosphatase 61 (38-126) U/L Total Protein 6.6 (6.3-8.2) g/dL Albumin 3.8 (3.5-5.0) g/dL Globulin 2.8 (1.7-4.1) g/dL Albumin/Globulin Ratio 1.4 (1.0-2.8) MDM Narrative Medical decision making narrative: CC: Postoperative pain Complicating co-morbidities: Laparoscopic cholecystectomy earlier today, discharge approximately 10 hours ago Data collected from: patient, partner Medical records reviewed: Surgical notes from the cholecystectomy are reviewed Differential considered: Uncontrolled postoperative pain, bile leak, common duct stone, other surgical complication Exam documented above, pertinent findings include: Patient is alert and appropriate she does have moderate upper abdominal tenderness and still bit of distention all consistent with her postoperative timeframe. Lab Test results independently reviewed as above. Pertinent findings: CBC shows some concerning abnormalities. She is a mild leukocytosis 16.2 with an 86% left shift. She also has a significant drop in H&H from a hemoglobin of 12.6 preop to 7.8 now 35.0 preop to 23.6 now. This is a fairly significant drop for a laparoscopic cholecystectomy with 5 cc blood loss Metabolic panel is notable for hyponatremia at 128, potassium slightly elevated at 5.2 creatinine is appropriate. Minimal elevation of AST and ALT consistent with cautery at the gallbladder fossa Imaging studies independently reviewed: Steady discussed in real-time with radiologist. There is a moderate amount of abdominopelvic free fluid with some evidence of hemorrhage. Possibility of a small amount of active hemorrhage in the gallbladder fossa can not be ruled out. Radiology recommended immediate repeat scans through the abdomen only without any additional IV contrast. This will be facilitated. Radiology interpretation of follow-up CT scan of the abdomen reveals no evidence of active hemorrhage in the gallbladder fossa Consultations:3am care is reviewed with Dr. Campbell her surgeon today. He to agreed that the drop in H&H and uncontrolled pain was unexpected. With shared decision-making we opted to go ahead and order a CT scan of her abdomen as well as treat her with TXA in case she is having active internal bleeding. Will plan on admitting her and I will do transition orders unless there are dramatic findings on her CT scan that would require more urgent interventions by Dr. Campbell. Treatments: Fluid, morphine, Zofran, TXA Re-evaluations: Patient is uncomfortable lying back flat. Remains tachycardic after a L of fluid and pain is only moderately controlled after parenteral and oral narcotics. Explained to her the unexpected findings in her blood work and plans for CT of the abdomen as well as admission for further evaluation and pain control. 640am critical labs returned with H&H dropping further now to 6.8 and 20.2. Type and cross is pending and she will be transfused 2 units of packed red cells. She remains slightly tachycardic but otherwise hemodynamically stable and pain is adequately controlled. Message is left to inform Dr. Campbell who likely is on his way to the hospitalist see the patient currently. Discussion: 83-year-old woman with her gallbladder taken out yesterday returns to the emergency department with severe and uncontrollable upper abdominal pain. Initially felt to be simply postoperative pain however blood work indicated significant drop in H&H, far more than would be expected with a laparoscopic cholecystectomy. She also was mildly hyponatremic and hyperkalemic. In the emergency department she was given fluids and pain medication that eventually did get the majority of her pain under better control. CT scans showed concern for blood in the abdomen/pelvis. In discussion with radiologist is recommendation was to repeat upper abdominal scan immediately which was done and did not demonstrate active bleeding from the gallbladder fossa. Patient is currently hemodynamically stable and has been informed of CT scan findings and plan for observation admission with repeat blood work done now.. Has been admitted observation status to Dr. Campbell's surgical service. Currently repeat H&H and BMP are pending. Bridging orders have been placed for observation admission. <Noemi Miller, DO - Last Filed: 07/11/23 09:29> Lab Data Labs: Lab Results 07/11/23 Range/Units 01:38 WBC 16.2 H (4.5-11.0) X10^3/uL RBC 2.63 L (4.0-5.2) X10^6/uL Hgb 7.8 L (12.0-16.0) g/dL Hct 23.6 L (36-46) % MCV 89.4 (80-100) fL MCH 29.7 (26-34) PG MCHC 33.2 (30-36) % RDW 13.8 (11.6-14.8) % Plt Count 368 (150-400) X10^3/uL Neut % (Auto) 86.0 H (50-75) % Lymph % (Auto) 8.3 L (25-40) % [place] % (Auto) 5.7 (3-14) % Eos % (Auto) 0.0 L (2-4) % Baso % (Auto) 0.0 (0-2) % Neut # (Auto) 80402 H (7051-3726) /uL Lymph # (Auto) 1300 (2091-4266) /uL [place] # (Auto) 900 (0-900) /uL Eos # (Auto) 0 (0-450) /uL Baso # (Auto) 0 (0-100) /uL Sodium 128 L (137-145) mmol/L Potassium 5.2 H (3.4-5.1) mmol/L Chloride 95 L (98-107) mmol/L Carbon Dioxide 20 L (22-32) mmol/L BUN 16 (7-17) mg/dL Creatinine 0.73 (0.52-1.04) mg/dL Estimated GFR > 60 (>60) mL/min BUN/Creatinine Ratio 21.9 (6-22) Glucose 252 H (70-100) mg/dL Calcium 9.4 (8.4-10.2) mg/dL Total Bilirubin 0.4 (0.2-1.3) mg/dL AST 56 H (14-36) IU/L ALT 54 H (<35) IU/L Alkaline Phosphatase 61 (38-126) U/L Total Protein 6.6 (6.3-8.2) g/dL Albumin 3.8 (3.5-5.0) g/dL Globulin 2.8 (1.7-4.1) g/dL Albumin/Globulin Ratio 1.4 (1.0-2.8) MDM Narrative Medical decision making narrative: CC: Postoperative pain Complicating co-morbidities: Laparoscopic cholecystectomy earlier today, discharge approximately 10 hours ago Data collected from: patient, partner Medical records reviewed: Surgical notes from the cholecystectomy are reviewed Differential considered: Uncontrolled postoperative pain, bile leak, common duct stone, other surgical complication Exam documented above, pertinent findings include: Patient is alert and appropriate she does have moderate upper abdominal tenderness and still bit of distention all consistent with her postoperative timeframe. Lab Test results independently reviewed as above. Pertinent findings: CBC shows some concerning abnormalities. She is a mild leukocytosis 16.2 with an 86% left shift. She also has a significant drop in H&H from a hemoglobin of 12.6 preop to 7.8 now 35.0 preop to 23.6 now. This is a fairly significant drop for a laparoscopic cholecystectomy with 5 cc blood loss Metabolic panel is notable for hyponatremia at 128, potassium slightly elevated at 5.2 creatinine is appropriate. Minimal elevation of AST and ALT consistent with cautery at the gallbladder fossa Imaging studies independently reviewed: Steady discussed in real-time with radiologist. There is a moderate amount of abdominopelvic free fluid with some evidence of hemorrhage. Possibility of a small amount of active hemorrhage in the gallbladder fossa can not be ruled out. Radiology recommended immediate repeat scans through the abdomen only without any additional IV contrast. This will be facilitated. Radiology interpretation of follow-up CT scan of the abdomen reveals no evidence of active hemorrhage in the gallbladder fossa Consultations:3am care is reviewed with Dr. Campbell her surgeon today. He to agreed that the drop in H&H and uncontrolled pain was unexpected. With shared decision-making we opted to go ahead and order a CT scan of her abdomen as well as treat her with TXA in case she is having active internal bleeding. Will plan on admitting her and I will do transition orders unless there are dramatic findings on her CT scan that would require more urgent interventions by Dr. Campbell. Treatments: Fluid, morphine, Zofran, TXA Re-evaluations: Patient is uncomfortable lying back flat. Remains tachycardic after a L of fluid and pain is only moderately controlled after parenteral and oral narcotics. Explained to her the unexpected findings in her blood work and plans for CT of the abdomen as well as admission for further evaluation and pain control. 640am critical labs returned with H&H dropping further now to 6.8 and 20.2. Type and cross is pending and she will be transfused 2 units of packed red cells. She remains slightly tachycardic but otherwise hemodynamically stable and pain is adequately controlled. Message is left to inform Dr. Campbell who likely is on his way to the hospitalist see the patient currently. Discussion: 53-year-old woman with her gallbladder taken out yesterday returns to the emergency department with severe and uncontrollable upper abdominal pain. Initially felt to be simply postoperative pain however blood work indicated significant drop in H&H, far more than would be expected with a laparoscopic cholecystectomy. She also was mildly hyponatremic and hyperkalemic. In the emergency department she was given fluids and pain medication that eventually did get the majority of her pain under better control. CT scans showed concern for blood in the abdomen/pelvis. In discussion with radiologist is recommendation was to repeat upper abdominal scan immediately which was done and did not demonstrate active bleeding from the gallbladder fossa. Patient is currently hemodynamically stable and has been informed of CT scan findings and plan for observation admission with repeat blood work done now.. Has been admitted observation status to Dr. Campbell's surgical service. Currently repeat H&H and BMP are pending. Bridging orders have been placed for observation admission. Dr. Miller-seen evaluated patient myself. She remains mildly tachycardic waiting for blood transfusion she is tender across upper abdomen. CT findings concerning for active hemorrhage. 8:00Spoke with Dr. Campbell, will come see patient in ED Patient going to OR Discharge Plan Departure Patient Disposition: Admitted as Observation Clinical Impression: Postoperative abdominal pain, Acute hyponatremia, Acute hyperkalemia Post-operative haemorrhage Qualifiers: Surgical complication system/body Area: digestive system Procedure type: digestive system Qualified Code(s): K91.840 - Postprocedural hemorrhage of a digestive system organ or structure following a digestive system procedure Admit Date/Time: 07/11/23 03:10 Admit Provider: Stef Campbell
[2023-07-11 01:47] LABS: Add Manual Diff / Slide Review NO; Basophils Absolute Auto 0 /uL (0-100); Eosinophils Absolute Auto 0 /uL (0-450); Hematocrit 23.6 % (36-46); Hemoglobin 7.8 g/dL (12.0-16.0); Lymphocytes Absolute Auto 1300 /uL (1100-4500); Lymphocytes Percent Auto 8.3 % (25-40); Mean Corpuscular HGB Conc 33.2 % (30-36); Mean Corpuscular Hemoglobin 29.7 PG (26-34); Mean Corpuscular Volume 89.4 fL (80-100); Monocytes Absolute Auto 900 /uL (0-900); Monocytes Percent Auto 5.7 % (3-14); Neutrophils Absolute Auto 13900 /uL (1500-7000); Platelet Count 368 X10^3/uL (150-400); Red Blood Cell Count 2.63 X10^6/uL (4.0-5.2); Red Cell Distribution Width 13.8 % (11.6-14.8); White Blood Cell Count 16.2 X10^3/uL (4.5-11.0)
[2023-07-11] MEDS: SODIUM CHLORIDE 0.9% 1,000 ML 1000 ML IV (01:48)
[2023-07-11] MEDS: ONDANSETRON 4 MG/2 ML INJ IV (01:48)
[2023-07-11] MEDS: MORPHINE 4 MG/ML INJ IV (01:48)
[2023-07-11 02:01] LABS: Albumin 3.8 g/dL (3.5-5.0); Albumin Globulin Ratio 1.4 (1.0-2.8); Alkaline Phosphatase 61 U/L (38-126); Aspartate Aminotransferase 56 IU/L (14-36); BUN Creatinine Ratio 21.9 (6-22); Bilirubin Total 0.4 mg/dL (0.2-1.3); Blood Urea Nitrogen 16 mg/dL (7-17); Calcium 9.4 mg/dL (8.4-10.2); Carbon Dioxide 20 mmol/L (22-32); Chloride 95 mmol/L (98-107); Estimated Glomerular Filt Rate > 60 mL/min (>60); Globulin 2.8 g/dL (1.7-4.1); Glucose 252 mg/dL (70-100); HEMOLYSIS < 15 (0-50); Potassium 5.2 mmol/L (3.4-5.1); Sodium 128 mmol/L (137-145); Total Protein 6.6 g/dL (6.3-8.2)
[2023-07-11 02:07] LABS: Alanine Aminotransferase 54 IU/L (<35)
[2023-07-11] MEDS: OXYCODONE/ACETAMINOPHEN 5/325 TABLET 2 TAB PO (02:41)
--- NOTE | 2023-07-11 03:13 | DI.CT.S_ITS ---
PROCEDURE: CT ABDOMEN PELVIS W CON INDICATIONS: severe post lap irwin pain. ?bleeding TECHNIQUE: After the administration of IV contrast, axial sections were acquired from the lung bases to the pubic symphysis. Coronal and sagittal reformats were performed. For radiation dose reduction, the following was used: automated exposure control, adjustment of mA and/or kV according to patient size. COMPARISON: [facility], MR, MR ABDOMEN WO CON, 02/27/2021, 7:45. [facility], CT, CT ABDOMEN WO CON, 07/11/2023, 5:29. [facility], US, US ABDOMEN LIMITED, 07/01/2023, 23:37. [facility], CT, CT ABDOMEN PELVIS W CON, 02/26/2021, 9:50. FINDINGS: Image quality: Excellent. Lung bases: Mild streaky atelectasis can be seen at the lung bases. Heart: No significant findings. ABDOMEN: Liver: No solid mass. Gallbladder: Prior cholecystectomy. There is a mild amount of hemorrhage seen within the cholecystectomy bed as well as adjacent to the right liver. There is also hyperdense material seen within the gallbladder fossa. Biliary ducts: No biliary dilation. Pancreas: No ductal dilation. Spleen: Size is within normal limits. Adrenal Glands: No adrenal nodules. Kidneys and Ureters: No hydronephrosis. No solid mass. No complex renal cystic lesion which requires follow up. Stomach and Bowel: Normal colonic caliber, without significant wall thickening. Peritoneum: No kayy free air can be seen. There is moderate hemorrhagic ascites layering within the pelvis. Ventral Wall: No hernia. Postoperative gas can be seen involving the anterior abdominal wall, which is considered to be within normal limits. Abdominal Nodes: No retroperitoneal or mesenteric adenopathy by size criteria. Vessels: Aorta and inferior vena cava are normal in size. PELVIS: Pelvic Organs: This patient is status post hysterectomy. No adnexal masses are seen. Bladder: Moderate bladder wall thickening can be seen anteriorly. Pelvic Nodes: No enlarged lymph nodes. Miscellaneous: No inguinal hernias are seen. Bones: There is focal lower lumbar spine degenerative change. IMPRESSION: Status post cholecystectomy, with a moderate amount of hemorrhage seen within the cholecystectomy bed and adjacent to the liver. A moderate amount of hemorrhagic ascites can be seen layering within the pelvis as well. Hyperdense material can be seen within the gallbladder fossa, which may related to a small amount of active hemorrhage versus regional arteries. There is moderate bladder wall thickening. Please correlate with UTI. Anterior abdominal wall gas can be seen, which is considered to be within postoperative limits. Additional findings: Hysterectomy Focal lower lumbar spine degenerative change Note: No significant discrepancy from the preliminary report. Dictated by: Robert Wei M.D. on 07/11/2023 at 8:28 Approved by: Robert Wei M.D. on 07/11/2023 at 8:35
[2023-07-11] MEDS: TRANEXAMIC ACID 1,000 MG in SODIUM CHLORIDE 0.9% 100 ML 200 MG IV (03:23)
[2023-07-11] MEDS: MORPHINE 2 MG/ML INJ IV ×3 (03:26→07:56)
[2023-07-11] MEDS: SODIUM CHLORIDE 0.9% 1,000 ML 150 ML IV (04:10)
--- NOTE | 2023-07-11 05:15 | DI.CT.S_ITS ---
PROCEDURE: CT ABDOMEN WO CON INDICATIONS: ? bleeding gallbladder fossa TECHNIQUE: No contrast was given. 5 mm thick sections acquired from the diaphragms to the iliac crests. 5 mm coronal and sagittal reformats were then performed. For radiation dose reduction, the following was used: automated exposure control, adjustment of mA and/or kV according to patient size. COMPARISON: [facility], CT, CT ABDOMEN PELVIS W CON, 07/11/2023, 3:36. FINDINGS: Image quality: Diagnostic On this follow-up study, there is no increased hemorrhage seen within the gallbladder fossa or adjacent to the liver. There remains a moderate amount of hemorrhage within these regions. Excreting contrast can be seen within the renal collecting systems. IMPRESSION: On this follow-up study, no findings of active extravasation can be seen into the gallbladder fossa. Note: No significant discrepancy from the preliminary report. Dictated by: Robert Wei M.D. on 07/11/2023 at 8:35 Approved by: Robert Wei M.D. on 07/11/2023 at 8:37
--- NOTE | 2023-07-11 05:30 | PC.NURSE ---
Patient moved to inpatient hospital bed for comfort and skin protection. Repeat CT completed, patient tolerated moving from stretcher to CT table with moderate staff assist to avoid excessive abd strain. Patient was also able to tolerate a short walk in CT area to use restroom. Once back to RM 10 in ED, patient reported pain tolerable at a 3/10 and denies need for additional pain medication.
[2023-07-11 06:34] LABS: Blood Urea Nitrogen 12 mg/dL (7-17); Calcium 8.9 mg/dL (8.4-10.2); Carbon Dioxide 22 mmol/L (22-32); Chloride 98 mmol/L (98-107); Estimated Glomerular Filt Rate > 60 mL/min (>60); Glucose 199 mg/dL (70-100); HEMOLYSIS < 15 (0-50); Hemoglobin 6.8 g/dL (12.0-16.0); Potassium 4.6 mmol/L (3.4-5.1); Sodium 130 mmol/L (137-145)
[2023-07-11 06:35] LABS: Hematocrit 20.2 % (36-46)
--- NOTE | 2023-07-11 07:54 | PC.NURSE ---
First unit of PRBC hung. pt a&ox4. 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 Pt states that she is experiencing a 6/10 pain. Pt skin pale.
--- NOTE | 2023-07-11 08:37 | PC.NURSE ---
Pt tolerating blood transfusion without complication. HR 110, BP 103/57, RR 14 and 92% on RA. A&Ox4. 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
--- NOTE | 2023-07-11 08:59 | PC.NURSE ---
Dr Campbell spoke with pt and informed pt that she will be going back to OR today. Pt HR 120 after MD palpated abd. Pt up to BSC and HR remained 120s. After pt voided HR 107, which is pt's baseline prior to blood administration. Pt voided 475cc clear yellow urine. Pt undressed and in gown prior to OR transport. NAPPER GRINDER arrived to transport pt to OR. Attempted to give NAPPER GRINDER report for pt safety. NAPPER GRINDER stated, If I have any questions, I will just call you. Blood products transfusing at 200ml/hr during pt transport to OR.
--- NOTE | 2023-07-11 09:18 | P.HP_ITS ---
History of Present Illness History of Present Illness Date Patient Seen: 07/11/23 Time Patient Seen: 09:18 Chief complaint: extreme pain abd post surgery Narrative: 53-year-old woman who underwent a laparoscopic cholecystectomy for cholecystitis yesterday 07/10. Operation was notable for chronic cholecystitis and mildly abnormal oozing from the omentum as well as the skin incisions. EBL was fairly minimal less 100. No known bleeding disorders her dentist notes that she bleeds heavily during routine examinations. At admission hemoglobin [address] abdomen pelvis demonstrates sizable fluid collection in the right upper quadrant no extravasation of contrast demonstrated. Since admission she is received 1 unit of packed red blood cells. Mild tachycardia 120 normotensive. [facility] Medical History Celiac disease Fibromyalgia delivery delivered Diabetes Neurogenic pain Hypothyroidism Anxiety Depression Surgical History H/O section H/O wrist surgery Family History Father Hypertension Diabetes mellitus Heart disease Mother Heart disease Grandmother Stroke Grandfather Heart disease Social History marital status: unmarried,single details: Lives with adult daughter and 3 other roomates. household members: friend(s) lives independently: Yes occupational status: employed Smoking Status: Never smoker alcohol intake: never substance use type: does not use Meds Home Medications and Allergies Home Medications Medication Instructions Recorded Confirmed Type gabapentin 600 mg tablet 600 mg PO TID PRN Pain (Scale 10/20/18 07/10/23 History Score 1-3) levothyroxine 50 mcg tablet 50 mcg PO DAILY 10/20/18 07/10/23 History metformin 750 mg tablet,extended 750 mg PO BID 10/20/18 07/10/23 History release 24 hr cinnamon bark PO BID 07/09/23 07/09/23 History coenzyme Q10 10 mg capsule 10 mg PO ONCE 07/09/23 07/10/23 History red yeast rice 600 mg tablet 600 mg PO DAILY 07/09/23 07/10/23 History acetaminophen 325 mg capsule 650 mg (2 x 325 mg) PO QID PRN 07/10/23 Rx (Tylenol) pain #60 caps gemfibrozil 600 mg tablet 600 mg PO BID 07/10/23 07/10/23 History ibuprofen 200 mg tablet 400 mg (2 x 200 mg) PO Q6H #60 tabs 07/10/23 Rx meloxicam 7.5 mg tablet 7.5 mg PO DAILY 07/10/23 07/10/23 History tramadol 50 mg tablet 50 mg PO Q6H PRN pain #15 tabs 07/10/23 Rx venlafaxine 150 mg 150 mg PO DAILY 07/10/23 07/10/23 History capsule,extended release 24 hr Allergies Allergy/AdvReac Type Severity Reaction Status Date / Time hydromorphone [From Dilaudid] AdvReac Severe Nausea Verified 07/10/23 08:18 Sulfa (Sulfonamide AdvReac Severe Vomiting Verified 07/10/23 08:17 Antibiotics) codeine AdvReac Intermediate Nausea Verified 07/10/23 08:17 Exam Vital Signs (past 8 hours): - 07/11/23 01:30 07/11/23 02:00 07/11/23 02:30 Temperature Pulse Rate 103 H 103 H 103 H Respiratory Rate Blood Pressure Pulse Oximetry 97 99 98 Oxygen Delivery Method 07/11/23 02:35 07/11/23 02:35 07/11/23 02:47 Temperature Pulse Rate 102 H Respiratory Rate Blood Pressure 143/74 H 171/84 H Pulse Oximetry 97 Oxygen Delivery Method 07/11/23 02:47 07/11/23 03:00 07/11/23 03:00 Temperature Pulse Rate 98 H 102 H Respiratory Rate Blood Pressure 154/81 H Pulse Oximetry 100 96 Oxygen Delivery Method 07/11/23 03:50 07/11/23 03:52 07/11/23 03:52 Temperature Pulse Rate 110 H 109 H Respiratory Rate 20 Blood Pressure 152/80 H Pulse Oximetry 56 L 99 Oxygen Delivery Method 07/11/23 04:00 07/11/23 04:00 07/11/23 04:30 Temperature Pulse Rate 104 H Respiratory Rate 19 Blood Pressure 136/69 120/71 Pulse Oximetry 97 Oxygen Delivery Method 07/11/23 04:30 07/11/23 05:00 07/11/23 05:00 Temperature Pulse Rate 104 H 103 H Respiratory Rate 16 17 Blood Pressure 137/77 Pulse Oximetry 96 95 Oxygen Delivery Method Room Air 07/11/23 05:36 07/11/23 05:38 07/11/23 05:38 Temperature 98.1 F Pulse Rate 107 H 101 H Respiratory Rate 17 21 Blood Pressure 123/68 Pulse Oximetry 94 Oxygen Delivery Method Room Air 07/11/23 05:51 07/11/23 06:00 07/11/23 06:00 Temperature 98.1 F Pulse Rate 107 H Respiratory Rate 16 Blood Pressure 130/64 Pulse Oximetry 97 Oxygen Delivery Method 07/11/23 06:30 07/11/23 06:30 07/11/23 07:00 Temperature Pulse Rate 110 H 112 H Respiratory Rate 21 17 Blood Pressure 113/62 Pulse Oximetry 96 95 Oxygen Delivery Method Room Air 07/11/23 07:00 07/11/23 07:30 07/11/23 07:30 Temperature Pulse Rate 107 H Respiratory Rate 16 Blood Pressure 151/72 H 114/56 L Pulse Oximetry 95 Oxygen Delivery Method 07/11/23 07:45 07/11/23 07:45 07/11/23 07:48 Temperature 98.2 F Pulse Rate 109 H 107 H Respiratory Rate 17 16 Blood Pressure 111/59 L 111/59 L Pulse Oximetry 93 Oxygen Delivery Method 07/11/23 07:52 07/11/23 07:52 07/11/23 08:00 Temperature Pulse Rate 108 H Respiratory Rate 17 Blood Pressure 109/59 L 110/55 L Pulse Oximetry 94 Oxygen Delivery Method 07/11/23 08:00 07/11/23 08:07 07/11/23 08:11 Temperature 98.2 F Pulse Rate 109 H 111 H 114 H Respiratory Rate 17 15 19 Blood Pressure 100/54 L Pulse Oximetry 93 Oxygen Delivery Method 07/11/23 08:11 07/11/23 08:15 07/11/23 08:15 Temperature Pulse Rate 110 H Respiratory Rate 15 Blood Pressure 100/54 L 106/58 L Pulse Oximetry 92 Oxygen Delivery Method 07/11/23 08:24 07/11/23 08:24 07/11/23 08:26 Temperature 98.2 F Pulse Rate 114 H 114 H Respiratory Rate 18 14 Blood Pressure 100/56 L 100/95 H Pulse Oximetry Oxygen Delivery Method 07/11/23 08:30 07/11/23 08:30 07/11/23 08:45 Temperature 98.1 F Pulse Rate 110 H 125 H Respiratory Rate 15 22 Blood Pressure 103/57 L 117/62 Pulse Oximetry 92 Oxygen Delivery Method 07/11/23 08:45 07/11/23 08:45 07/11/23 08:55 Temperature Pulse Rate 122 H Respiratory Rate 25 H Blood Pressure 117/62 129/64 Pulse Oximetry 93 Oxygen Delivery Method 07/11/23 08:55 Temperature Pulse Rate 120 H Respiratory Rate 25 H Blood Pressure Pulse Oximetry 92 Oxygen Delivery Method Oxygen Delivery Method Room Air Narrative Exam Narrative: General adult woman alert oriented no acute distress Chest nonlabored respiration Abdomen tender no peritonitis mild distention Objective Labs 07/11/23 06:06 07/11/23 06:06 Labs: Laboratory Results - last 24 hr 07/11/23 07/11/23 01:38 06:06 WBC 16.2 H RBC 2.63 L Hgb 7.8 L 6.8 L* Hct 23.6 L 20.2 L* MCV 89.4 MCH 29.7 MCHC 33.2 RDW 13.8 Plt Count 368 Neut % (Auto) 86.0 H Lymph % (Auto) 8.3 L [place] % (Auto) 5.7 Eos % (Auto) 0.0 L Baso % (Auto) 0.0 Neut # (Auto) 08047 H Lymph # (Auto) 1300 [place] # (Auto) 900 Eos # (Auto) 0 Baso # (Auto) 0 Sodium 128 L 130 L Potassium 5.2 H 4.6 Chloride 95 L 98 Carbon Dioxide 20 L 22 BUN 16 12 Creatinine 0.73 0.63 Estimated GFR > 60 > 60 BUN/Creatinine Ratio 21.9 19.0 Glucose 252 H 199 H Calcium 9.4 8.9 Total Bilirubin 0.4 AST 56 H ALT 54 H Alkaline Phosphatase 61 Total Protein 6.6 Albumin 3.8 Globulin 2.8 Albumin/Globulin Ratio 1.4 Blood Type B Positive Antibody Screen Negative Crossmatch See Detail Assessment & Plan Assessment and plan (1) Postoperative abdominal pain: Status: Acute Assessment & Plan narrative: 53-year-old woman postoperative day 1 status post laparoscopic cholecystectomy for chronic cholecystitis who returns with intra-abdominal hematoma, hemodynamically stable. CT abdomen pelvis personally reviewed demonstrates fluid collection presumably hematoma in the right upper quadrant no signs of active extravasation. I discussed with her the findings and we discussed options including returned to the operating room for diagnostic laparoscopy and evacuation of hematoma versus observation with resuscitation. Following discussion her preference is to proceed to the operating room. Overview of the operation was discussed. Operative risks including hemorrhage, infection, damage to surrounding structures were discussed. Questions have been answered she is in agreement with this plan. She provides her written and verbal consent to proceed.
[2023-07-11] MEDS: CEFAZOLIN 2 GM/100 ML PREMIX 100 ML IV (09:40)
--- NOTE | 2023-07-11 10:11 | SUR.OPER ---
Supine on padded OR bed, head on pillow, safety belt at thigh, left arm padded and tucked at side. Right arm secured on padded arm board <90 degrees abduction. Legs uncrossed. Padded footboard in place. Tape over blanket to secure lower legs.
[2023-07-11] MEDS: BUPIVACAINE 0.25% (PF) VIAL 30 ML INJ (10:23)
[2023-07-11] MEDS: LACTATED RINGERS 1,000 ML 42 ML IV (10:35)
--- NOTE | 2023-07-11 11:52 | P.OP_ITS ---
Operative Date/Time/Diagnoses Date of procedure: 07/11/23 Time of procedure: 11:52 Pre-op diagnosis: intra abdominal hematoma Post-op diagnosis: same Procedure & Clinicians Procedure: diagnostic laparoscopy Same procedure as scheduled: Yes Indications: 53 y.o woman POD 1 sp laparoscopic cholecystectomy for chronic cholecystitis who developed a painful intra abdominal hematoma taken back to the OR for diagnostic laparoscopy Surgeon: Stef Ireland Yes if Unassisted: Yes Anesthesia Type: General Operative Notes Findings: No evidence of active hemorrhage Intra abdominal hematoma RUQ Specimen(s): none sent Estimated Blood Loss (mL): 0 Procedure in detail: Patient was brought to the operating room placed supine on the table. Bilateral lower extremity compression devices were applied. She received 2 g of Ancef. General anesthesia was induced she was intubated with an endotracheal tube. Time-out was performed. She was prepped and draped in sterile fashion. The infraumbilical incision was opened the abdomen was entered atraumatically. Pneumoperitoneum was established. Additional working ports 5 mm in the right upper quadrant and an 11 mm in the epigastric region were placed under direct visualization. The abdomen was carefully inspected and demonstrated significant quantity of hematoma within the right upper quadrant there was no active hemorrhage. The abdomen was subsequently irrigated with approximately 10 L saline the hematoma was evacuated. The gallbladder fossa was inspected there was no evidence of bile or active bleeding. The trocar sites were inspected there was no evidence of hemorrhage from the abdominal wall. Anesthesia noted that her physiologic response to multiple of the anesthetic medications was markedly abnormal. Nineteen Indonesian drain was placed in the right upper quadrant through 1 of the previous trocar sites. The fascia at the umbilicus was closed with a [id number] Vicryl suture and the skin closed with Monocryl followed by Dermabond. She was extubated and transferred to recovery in stable condition. In the recovery unit she remained there for a prolonged period of time due to hypoxemia which improved with Lasix. Complications: none Post-operative Condition: stable Disposition: observation
[2023-07-11] MEDS: FUROSEMIDE 20 MG/2 ML VIAL 10 MG IV ×2 (12:19→17:15)
[2023-07-11] MEDS: OXYCODONE IR 5 MG TABLET PO ×2 (12:59→22:53)
[2023-07-11] MEDS: INSULIN REGULAR 100 UNIT/ML 3 ML VIAL SUBCUT (13:24)
--- NOTE | 2023-07-11 14:57 | PC.NURSE ---
Patient has her cpap on and is tolertating this well. She has 3 small bandaide dressings and a MARCOS drain that is putting out bloody drainage, we are empyting this as needed. She was on 4L of oxygen and her sats were dropping down to the 70s. Sats are better with cpap in place. Patient has a visitor and is resting comfortably.
[2023-07-11] MEDS: INSULIN LISPRO 100 UNIT/ML 3ML VIAL SUBCUT (18:23)
[2023-07-11] MEDS: GABAPENTIN 600 MG TABLET PO (19:28)
[2023-07-12] VITALS (12 sets, daily range): BP systolic 100–114; BP diastolic 48–67; PULSE 72–117; RESP 16–18; TEMP 35.6–37.4; O2SAT 92–99
[2023-07-12] MEDS: ACETAMINOPHEN 325 MG TABLET 650 MG PO ×2 (00:39→10:17)
[2023-07-12] MEDS: OXYCODONE IR 5 MG TABLET PO ×5 (02:27→23:11)
[2023-07-12] MEDS: LEVOTHYROXINE 50 MCG TABLET PO (05:05)
[2023-07-12] MEDS: GABAPENTIN 600 MG TABLET PO (05:05)
[2023-07-12] MEDS: INSULIN LISPRO 100 UNIT/ML 3ML VIAL SUBCUT ×3 (05:20→17:28)
[2023-07-12 05:21] LABS: Add Manual Diff / Slide Review NO; Basophils Absolute Auto 0 /uL (0-100); Basophils Percent Auto 0.4 % (0-2); Eosinophils Absolute Auto 100 /uL (0-450); Eosinophils Percent Auto 0.5 % (2-4); Hematocrit 25.8 % (36-46); Lymphocytes Absolute Auto 2100 /uL (1100-4500); Lymphocytes Percent Auto 18.9 % (25-40); Mean Corpuscular HGB Conc 34.9 % (30-36); Monocytes Absolute Auto 500 /uL (0-900); Monocytes Percent Auto 4.3 % (3-14); Neutrophils Absolute Auto 8500 /uL (1500-7000); Neutrophils Percent Auto 75.9 % (50-75); Platelet Count 273 X10^3/uL (150-400); Red Cell Distribution Width 14.4 % (11.6-14.8); White Blood Cell Count 11.2 X10^3/uL (4.5-11.0)
[2023-07-12] MEDS: PRENATAL VIT,CALC/IRON/FOLIC 1 TABLET 1 TAB PO (08:27)
[2023-07-12] MEDS: VENLAFAXINE ER 75 MG CAP 150 MG PO (08:27)
--- NOTE | 2023-07-12 08:30 | PC.NURSE ---
Addendum entered by Bekah Morrison R.N. 07/12/23 14:34: Pt sleeping 87% on RA, placed on 0.5L 94% now. Addendum entered by Bekah Morrison R.N. 07/12/23 12:57: while pt was taking a nap her O2 was 83% on RA, placed her on 1L O2 and she was 93. RT came to Eval and patient's O2 sat remained in 90's. However, I am concerned when she is sleeping her O2 sat dips down. Her heart rate is also 120's when she is moving around, I listened to her apical pulse to confirm. at rest her HR in 110's. Pt also verbalize her concern on going home, she said she would like to stay for 1 more night. All of these information were reported to Dr. Shearer. Addendum entered by Bekah Morrison R.N. 07/12/23 09:25: On RA she runs 85-87%, on 0.5L she is 95%. waiting to dc her until O2 sat is stable. Original Note: sutures removed, MARCOS drain removed. pt tolerated well
--- NOTE | 2023-07-12 09:26 | CM.DANOTE ---
Addendum entered by BRI Maria 07/12/23 14:02: Per chart, RN and pt concerns with d/c home due to oxygen concerns. Per chart, Dr. Shearer canceled dc order to keep her another night. CM team will continue to follow as needed. ELIZA Original Note: DCP Assessment Note Patient is a 53yo F here following abdominal pain after a lap choley with Dr. Campbell on 07/10. Pt was dc home and returned to the ED 10 hours later. 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 Per chart, dc orders in. Per RN, pt indept in room. Currently on .5ltrs O2 at the moment, no o2 at baseline. Attempting to wean her off O2 prior to dc home. Per chart review and RN input, likely no needs from CM team at this time. Plan: home with friend support when medically stable. CM team will continue to follow as needed BRI Maria Discharge Planning/Care Management Advanced directive, confirm from FAMILY Start: 07/11/23 14:11 Freq: Q24H Status: Active Protocol: Document 07/11/23 15:01 CLL (Rec: 07/11/23 15:04 CLL [id number]) Co-signed By Chelsea Vega RN Advance Directive, confirm on record Time 15:04 Person contacted patient Copy received No CM Discharge Assessment Start: 07/12/23 09:24 Freq: Status: Active Protocol: Document 07/12/23 09:24 (Rec: 07/12/23 09:26 [id number]) Discharge Planning Assessment Assigned Insulation Foreman BRI Prabhakar Advance Directives? No Advance Directives on File No History Provided By Medical Record Prior Living Arrangements House Household Members friend(s) Independent with ADL's Yes Is patient alert and oriented? Yes Discharge Plan Home Transportation Arrangement Friend Referrals Initiated None needed Whiteboard Updated in Patient Room with No name and ext. # of Insulation Foreman Review Status In Process Next Review Type Continued Stay Review
[2023-07-12] MEDS: SODIUM CHLORIDE 0.9% FLUSH 10 ML IV ×2 (10:31→19:43)
--- NOTE | 2023-07-12 11:30 | P.PN_ITS ---
Subjective Subjective Date Patient Seen: 07/12/23 Time Patient Seen: 07:45 Interval history: s/p diagnostic laparoscopy for post op bleed follow lap irwin Exam Vital Signs (past 8 hours): - 07/12/23 04:00 07/12/23 04:00 07/12/23 08:00 Temperature 99 F 98.6 F Pulse Rate 117 H 72 Respiratory Rate 18 16 Blood Pressure 105/49 L 108/65 Pulse Oximetry 96 93 93 Oxygen Delivery Method Nasal Cannula Oxygen Flow Rate 1 2 07/12/23 08:27 Temperature Pulse Rate Respiratory Rate Blood Pressure Pulse Oximetry 95 Oxygen Delivery Method Nasal Cannula Oxygen Flow Rate 0.5 Oxygen Delivery Method Nasal Cannula Oxygen Flow Rate 0.5 Narrative Exam Narrative: abdomen benign, drain serosang Objective Labs 07/12/23 05:00 07/11/23 06:06 Labs: Laboratory Results - last 24 hr 07/11/23 07/12/23 06:06 05:00 WBC 11.2 H RBC 3.00 L Hgb 9.0 L Hct 25.8 L MCV 86.0 D MCH 30.0 MCHC 34.9 RDW 14.4 Plt Count 273 Neut % (Auto) 75.9 H Lymph % (Auto) 18.9 L [place] % (Auto) 4.3 Eos % (Auto) 0.5 L Baso % (Auto) 0.4 Neut # (Auto) 8500 H Lymph # (Auto) 2100 [place] # (Auto) 500 Eos # (Auto) 100 Baso # (Auto) 0 Crossmatch See Detail PFSH Medical History Celiac disease Fibromyalgia delivery delivered Diabetes Neurogenic pain Hypothyroidism Anxiety Depression Surgical History H/O section H/O wrist surgery Family History Father Hypertension Diabetes mellitus Heart disease Mother Heart disease Grandmother Stroke Grandfather Heart disease Social History marital status: unmarried,single details: Lives with adult daughter and 3 other roomates. household members: friend(s) lives independently: Yes occupational status: employed Smoking Status: Never smoker alcohol intake: current substance use type: does not use Assessment & Plan Post-op Postoperative Procedures: Procedures Operation Date: 07/11/23 09:30 Actual Procedure Side Surgeon p Laparoscopy, Diagnostic, GEN Stef Campbell MD Postoperative status: doing well Postoperative plan: discharge Time Spent With Patient Time with patient: less than 15 minutes Quality VTE Deep Vein Thrombosis/Pulmonary Embolism Present on Admission: No
--- NOTE | 2023-07-12 11:32 | PM.DS.1 ---
History of Present Illness History of Present Illness Date Patient Seen: 07/12/23 Time Patient Seen: 11:32 Chief complaint: extreme pain abd post surgery Narrative: post op bleeding after lap irwin Discharge Providers Provider Date of admission: 07/11/23 03:10 Discharge Date: 07/12/23 Primary care physician: Caitlyn Liz PA-C Discharge provider: Analy Shearer MD Summary Hospital Course Discharge Diagnosis: s/p lap irwin with diagnostic laparoscopy for post op bleeding. Now with anemia Hospital Course: readmitted and taken to OR for wash out post op bleed. No transfusion. No postop complication Status at Discharge Cognitive/behavioral status at discharge: at baseline, oriented Functional status at discharge: independent ambulation Overall status at discharge: patient is back to baseline Time Spent with Patient Time spent: Less than 30 minutes Exam Vital Signs (past 8 hours): - 07/12/23 04:00 07/12/23 04:00 07/12/23 08:00 Temperature 99 F 98.6 F Pulse Rate 117 H 72 Respiratory Rate 18 16 Blood Pressure 105/49 L 108/65 Pulse Oximetry 96 93 93 Oxygen Delivery Method Nasal Cannula Oxygen Flow Rate 1 2 07/12/23 08:27 Temperature Pulse Rate Respiratory Rate Blood Pressure Pulse Oximetry 95 Oxygen Delivery Method Nasal Cannula Oxygen Flow Rate 0.5 Oxygen Delivery Method Nasal Cannula Oxygen Flow Rate 0.5 Narrative Exam Narrative: abdomen benign, drain serosang. Objective Labs 07/12/23 05:00 07/11/23 06:06 Labs: Laboratory Results - last 24 hr 07/11/23 07/12/23 06:06 05:00 WBC 11.2 H RBC 3.00 L Hgb 9.0 L Hct 25.8 L MCV 86.0 D MCH 30.0 MCHC 34.9 RDW 14.4 Plt Count 273 Neut % (Auto) 75.9 H Lymph % (Auto) 18.9 L [place] % (Auto) 4.3 Eos % (Auto) 0.5 L Baso % (Auto) 0.4 Neut # (Auto) 8500 H Lymph # (Auto) 2100 [place] # (Auto) 500 Eos # (Auto) 100 Baso # (Auto) 0 Crossmatch See Detail [facility] Medical History Celiac disease Fibromyalgia delivery delivered Diabetes Neurogenic pain Hypothyroidism Anxiety Depression Surgical History H/O section H/O wrist surgery Family History Father Hypertension Diabetes mellitus Heart disease Mother Heart disease Grandmother Stroke Grandfather Heart disease Social History marital status: unmarried,single details: Lives with adult daughter and 3 other roomates. household members: friend(s) lives independently: Yes occupational status: employed Smoking Status: Never smoker alcohol intake: current substance use type: does not use Discharge Assessment & Plan Assessment and Plan Assessment: no postop complication Acute blood loss anemia Plan of Treatment: Home with vitamen Discharge Plan Discharge Plan Patient Disposition: Home Nursing Discharge Comment: Call provider for any fever, chills, unusual drainage, unusual redness. No baths but may shower. Call provider's office for any questions. Discharge orders & Medications Prescriptions: New oxycodone 5 mg Tablet 5 mg PO Q3HR PRN (Reason: Pain, Moderate (4-6)) Qty: 20 0RF Prenatabs Rx 29 mg iron- 1 mg Tablet 1 tab PO DAILY Qty: 60 0RF Continued cinnamon bark PO BID coenzyme Q10 10 mg capsule 10 mg PO ONCE red yeast rice 600 mg tablet 600 mg PO DAILY Rx Instructions: give with meal/snack gabapentin 600 mg tablet 600 mg PO TID PRN (Reason: Pain (Scale Score 1-3)) levothyroxine 50 mcg tablet 50 mcg PO DAILY metformin 750 mg tablet extended release 24 hr 750 mg PO BID venlafaxine 150 mg capsule,extended release 24hr 150 mg PO DAILY meloxicam 7.5 mg tablet 7.5 mg PO DAILY gemfibrozil 600 mg tablet 600 mg PO BID Patient Comments: hasn't started yet. ibuprofen 200 mg tablet 400 mg PO Q6H Qty: 60 0RF tramadol 50 mg tablet 50 mg PO Q6H PRN (Reason: pain) Qty: 15 0RF acetaminophen [Tylenol] 325 mg capsule 650 mg PO QID PRN (Reason: pain) Qty: 60 0RF Follow up/Referrals: Caitlyn Liz PA-C [Primary Care Provider] - Stef Campbell MD [Physician] - Diet/Activity/Treatments Diet: Diet as Tolerated Visit Report/Discharge Packet Instructions: DI for Laparoscopy, DI for Hypotension, [facility]: Wound Care Stand Alone Forms: Patient Portal/API, Stroke Signs & Symptoms, Surgery Discharge Discharge Data Primary Care Provider: Caitlyn Liz VTE Deep Vein Thrombosis/Pulmonary Embolism Present on Admission: No
[2023-07-13] VITALS (9 sets, daily range): BP systolic 120–139; BP diastolic 66–76; PULSE 85–108; RESP 16–18; TEMP 36.3–37.6; O2SAT 92–98
[2023-07-13] MEDS: ACETAMINOPHEN 325 MG TABLET 650 MG PO ×2 (01:49→14:05)
[2023-07-13] MEDS: LEVOTHYROXINE 50 MCG TABLET PO (05:23)
[2023-07-13] MEDS: INSULIN LISPRO 100 UNIT/ML 3ML VIAL SUBCUT ×2 (05:24→12:25)
[2023-07-13 06:15] LABS: Add Manual Diff / Slide Review NO; Basophils Absolute Auto 100 /uL (0-100); Basophils Percent Auto 0.5 % (0-2); Eosinophils Absolute Auto 400 /uL (0-450); Eosinophils Percent Auto 4.4 % (2-4); Hematocrit 24.6 % (36-46); Hemoglobin 8.6 g/dL (12.0-16.0); Lymphocytes Absolute Auto 2100 /uL (1100-4500); Lymphocytes Percent Auto 21.2 % (25-40); Mean Corpuscular HGB Conc 34.7 % (30-36); Mean Corpuscular Volume 86.5 fL (80-100); Monocytes Absolute Auto 500 /uL (0-900); Monocytes Percent Auto 5.6 % (3-14); Neutrophils Absolute Auto 6600 /uL (1500-7000); Neutrophils Percent Auto 68.3 % (50-75); Platelet Count 276 X10^3/uL (150-400); Red Blood Cell Count 2.85 X10^6/uL (4.0-5.2); Red Cell Distribution Width 14.5 % (11.6-14.8); White Blood Cell Count 9.7 X10^3/uL (4.5-11.0)
[2023-07-13] MEDS: VENLAFAXINE ER 75 MG CAP 150 MG PO (09:00)
[2023-07-13] MEDS: PRENATAL VIT,CALC/IRON/FOLIC 1 TABLET 1 TAB PO (09:00)
[2023-07-13] MEDS: SODIUM CHLORIDE 0.9% FLUSH 10 ML IV (09:01)
--- NOTE | 2023-07-13 10:04 | PC.NURSE ---
Addendum entered by Dank Silvestre R.N. 07/13/23 15:05: will continue to progress to d/c based on Pt's ability to maintain her sats when active. Original Note: Pt A&O, follows commands states she's not a morning person and usually works late hours, otherwise she feels better. Anticipating d/c today.
[2023-07-13] MEDS: OXYCODONE IR 5 MG TABLET PO ×2 (10:25→16:12)
--- NOTE | 2023-07-13 13:53 | PT.IIE ---
Current Diagnoses Other acute postprocedural pain (07/11/23) Unspecified abdominal pain (07/11/23) Surgery Performed Operation Date: 07/11/23 09:30 Actual Procedures p Laparoscopy, Diagnostic, GEN - Stef Campbell MD Surgical History (Last Reviewed 07/11/23 @ 09:21 by Stef Campbell MD) H/O section H/O wrist surgery Medical History (Last Reviewed 07/11/23 @ 09:21 by Stef Campbell MD) Anxiety Celiac disease delivery delivered Depression Diabetes Fibromyalgia Hypothyroidism Neurogenic pain Physical Therapy Inpatient Evaluation/Re-Eval M1 PT/OT-IP Prior Functional Status Start: 07/13/23 07:43 Freq: NEEDED Status: Active Protocol: Document 07/13/23 13:10 MB (Rec: 07/13/23 13:52 MB [id number]) Medical Review Prior Functional Status Medical History Reviewed Yes Communication WNLs Mobility and Gait I Activities of Daily Living and IADL's I Social History Household Members children Living Arrangements House Number of Floors (Floors) One Floor Number of Stairs To Enter/Railing? 4 steps and no rail to enter Home Environment Standard Height Toilet,Walk in Shower Additional Social History Comment Pt works at the [email or web address] M2 PT-IP Current Condition Start: 07/13/23 07:43 Freq: NEEDED Status: Active Protocol: Document 07/13/23 13:10 MB (Rec: 07/13/23 13:52 MB [id number]) Physical Therapy Current Condition Current Condition Evaluation Date 07/13/23 Treatment Diagnosis Lap irwin with post-op bleeding and anemia M3 PT-IP Subjective Start: 07/13/23 07:43 Freq: NEEDED Status: Active Protocol: Document 07/13/23 13:10 MB (Rec: 07/13/23 13:52 MB [id number]) Subjective Physical Therapy Visit Type Type Initial Evaluation Visit Start Time 13:10 Visit Stop Time 13:35 Total Visit Minutes 25 Number of MEDICAL PRACTICE MANAGER Visits 0 Physical Therapy Visit Comments Patient Comments My heart rate jumps up even when I'm dressing lying here in the bed. M4 PT-IP Mobility and Gait Start: 07/13/23 07:43 Freq: NEEDED Status: Active Protocol: Document 07/13/23 13:10 MB (Rec: 07/13/23 13:52 MB [id number]) PT-Bed Mobility Assessment Supine to Sit Supine to Sit Contact Guard Assistance,1 Person Assistance,Head of Bed Elevated,Bedrails Scooting Scooting to Edge of Bed Contact Guard Assistance PT-Transfer Assessment Sit to and From Stand Sit to and from Stand Contact Guard Assistance,1 Person Assistance,Use of Upper Extremities Equipment Transfer Assistive Device Gait Belt Orthotic/Prosthetic Devices or Brace: No Comments Mobility Comments Pt gait trains occ reaching for rail hallway with left hand and occ placing hand on BP/Pulse ox machine that PT pushes beside pt to check vitals during mobility Gait Assessment Gait Gait Assistance Required: Contact Guard Assist,1 Person Assist Distance (Feet) 100 Able to Maintain Weight Bearing Status Yes During Gait Assistive Devices Assistive Device Gait Belt Factors Limiting Gait Function Factors Limiting Gait Function Decreased Activity Tolerance Comments Gait Comments Pt gait trains occ reaching for rail hallway with left hand and occ placing hand on BP/Pulse ox machine that PT pushes beside pt to check vitals during mobility Pt's O2 sats on RA drop to 79% twice and HR jumps up to 130 BPM during gait. At rest, her O2 sats are around 89-91% and HR is around 115 BPM Stair Climbing Assessment Evaluation Level of Assist On Stairs Minimal Assistance,1 Person Assistance Technique/Endurance Stair Climbing Direction Ascend and Descend Stair Climbing Technique Step Over Step,Step to Step Number of Steps Climbed 3 Query Text: Stair Climbing Set # Repetitions (reps) 1 Comments Stair Climbing Comments Min A/PHYSICAL SECURITY ENGINEER for three step mobility and PT monitoring vitals and numbers written under gait PT-Balance Assessment Sitting Balance and Reactions Static Sitting Balance Ability Good Dynamic Sitting Balance Ability Good Standing Balance and Reactions Static Standing Balance Ability Good Dynamic Standing Balance Ability Fair M5 PT-IP Objective Assessments Start: 07/13/23 07:43 Freq: NEEDED Status: Active Protocol: Document 07/13/23 13:10 MB (Rec: 07/13/23 13:52 MB [id number]) Orientation Orientation/Cognition Level of Alertness Alert Orientation Name,Age,Birthday,Month,Date, Year,Day of Week,Place, Situation Language Function Ability No Deficits Noted Safety Awareness Understands Safety Issues Memory Description No Deficits Noted Gross Range of Motion Upper Extremity ROM Assessment Within Functional Limits Lower Extremity ROM Assessment Within Functional Limits Strength Comments Strength Comments MMT deferred M7 PT-IP Assessment and Plan Start: 07/13/23 07:43 Freq: NEEDED Status: Active Protocol: Document 07/13/23 13:10 MB (Rec: 07/13/23 13:52 MB [id number]) PT Summary Assessment and Plan Potential Rehabilitation Potential Good Status of Condition at Evaluation Unstable Summary Impairments Balance,Bed Mobility,Transfers ,Gait,Activity Tolerance Progress Towards Goals Slow Progress due to Medical Issues,Slow Progress due to Activity Tolerance Assessment Summary Pt is a pleasant lady who is currently CGA to min A for mobility and whose O2 sats drop and HR increases on RA with gait today. Recommend ongoing gait in hallways with nsg and vitals checked and PT if pt stays in the hospital. PT spoke with nscarine and Dr. Campbell. Goals Bed Mobility Goal Independent Transfer Goal Independent Gait Goal Independent Gait Distance 100 Other Goals Pt will ascend and descend 3 steps with I to allow safe home entrance. Days to Meet Goals 3 Frequency of Treatment Frequency Of Treatment Once a Day Treatment Plan Physical Therapy Treatment Plan Bed Mobility Training,Transfer Training,Gait Training, Therapeutic Exercise,Balance Retraining,Discharge Planning Weight Bearing Status Weight Bearing Status Weight Bear as Tolerated Recommendations To Nursing Amount of Assist Needed 1 Person Assist Discharge Recommendations PT Discharge Recommendations Home with 15/02 Assist Available Transportation Needs at Discharge Private Vehicle
--- NOTE | 2023-07-13 15:12 | CM.DPNOTE ---
DCP Note MANAGER MEDICAL WRITING reviewed EMR. Per PT note, home with assistance recommended. Per RN, waiting to see how she does in the evening to maybe dc her home. dc order in. RN confirms no CM needs likely. MANAGER MEDICAL WRITING unable to meet with pt due to triaging needs. Plan: home when stable, likely later today or tomorrow. CM team will follow as needed. BRI Maria
== END 2023-07-13 16:25 | disposition home or self-care (01) | DRG 908 ==
LOC: ED 01:35 → AC 06:02
PROVIDERS: Admitting Provider Surgery; Emergency Provider Emergency Medicine; PCP Student in an Organized Health Care Education/Training Program; Visit Provider Surgery
PROC: 0WCG4ZZ Extirpation of Matter from Peritoneal Cavity, Percutaneous Endoscopic Approach (ICD-10-PCS; CPT 49320; principal; 2023-07-11 09:30)
DX: K91.870 Postprocedural hematoma of a digestive system organ or structure following a digestive system procedure (principal); D62 Acute posthemorrhagic anemia; Y83.6 Removal of other organ (partial) (total) as the cause of abnormal reaction of the patient, or of later complication, without mention of misadventure at the time of the procedure; E11.9 Type 2 diabetes mellitus without complications; K90.0 Celiac disease; E03.9 Hypothyroidism, unspecified; Z79.890 Hormone replacement therapy; Z79.84 Long term (current) use of oral hypoglycemic drugs; Z88.5 Allergy status to narcotic agent; Z88.2 Allergy status to sulfonamides; Z83.3 Family history of diabetes mellitus; K81.1 Chronic cholecystitis; K82.8 Other specified diseases of gallbladder
CPT/HCPCS: 36415; 36430; 47562; 49320; 74150; 74177; 80048; 80053; 81003; 82962; 85014; 85018; 85025; 86850; 86900; 86901; 94660; 94760; 94762; 96361; 96365; 96375; 96376; 97161; 99214; 99233; 99285; P9016; J0330; J0690; J1100; J1815; J1885; J1940; J2250; J2270; J2405; J2704; J3010; J3490; Q9967

== ENCOUNTER → 2023-12-09 15:31 | Outpatient (CLI) | payer BC, SELFPAY ==
[2023-07-11 03:21] VITALS: BMI 24.2
--- NOTE | 2023-12-09 15:33 | DI.RAD.S_ITS ---
PROCEDURE: XR CLAVICLE LT INDICATIONS: Clavicle tenderness TECHNIQUE: 2 views of the clavicle were acquired. COMPARISON: None. FINDINGS: Bones: No fractures or dislocations. No suspicious bony lesions. Soft tissues: No suspicious soft tissue calcifications. IMPRESSION: Approved by: Akilah Fu M.D.,Ph.D. on 12/09/2023 at 22:34
== END ==
PROVIDERS: PCP Student in an Organized Health Care Education/Training Program; Referring Provider Nurse Practitioner Family; Visit Provider Nurse Practitioner Family
DX: M89.8X1 Other specified disorders of bone, shoulder (principal)
CPT/HCPCS: 73000

== ENCOUNTER → 2024-04-14 12:56 | Outpatient (CLI) | payer BC, SELFPAY ==
[2023-07-11 03:21] VITALS: BMI 24.2
[2024-04-14 14:03] LABS: Influenza A - CEPHEID Flu A NEGATIVE (NEGATIVE); Influenza B - CEPHEID Flu B NEGATIVE (NEGATIVE); Respiratory Syncytial Virus Negative (Negative)
[2024-04-14 14:23] LABS: COVID-19 CEPHEID 4-PLEX PCR POSITIVE (Negative)
== END ==
PROVIDERS: PCP Student in an Organized Health Care Education/Training Program; Visit Provider Physician Assistant Surgical
DX: R05.1 Acute cough (principal); J02.9 Acute pharyngitis, unspecified
CPT/HCPCS: 0241U; 87070